=== PATIENT | female | born 1965 | race Caucasian/White ===

== ENCOUNTER 2020-07-22 06:33 | Outpatient (REF) | payer OTHER, SELFPAY ==
[2020-07-22 11:44] LABS: Hematocrit 39.8 % (37-47); Hemoglobin 13.3 g/dl (12.0-16.0); Mean Corpuscular HGB Conc 33.4 g/dl (31.0-35.0); Mean Corpuscular Hemoglobin 28.7 pg (27.0-33.0); Mean Corpuscular Volume 85.8 fL (80-98); Mean Platelet Volume 10.3 fL (9.4-12.3); Platelet Count 202 X10*3/uL (160-400); Red Blood Count 4.64 X10*6/uL (4.20-5.50); Red Cell Distribution Width 11.6 % (11.0-16.0); White Blood Count 4.1 X10*3/uL (4.8-10.8)
[2020-07-22 11:57] LABS: Alanine Aminotransferase 16 U/L (0-31); Albumin Level 4.5 g/dL (3.5-5.0); Alkaline Phosphatase 59 U/L (39-117); Anion Gap 12 (12-20); Aspartate Amino Transferase 17 U/L (5-31); Blood Urea Nitrogen 14 mg/dL (9-16); Calcium 9.5 mg/dL (8.4-10.2); Carbon Dioxide 27 mmol/L (22-29); Chloride 107 mmol/L (96-108); Cholesterol 216 mg/dL; Estimated Glomerular Filt Rate > 60; Glucose Fasting 102 mg/dL (60-99); HDL Cholesterol 70 mg/dL; LDL Cholesterol Calculated 136 mg/dl; Potassium 3.9 mmol/L (3.3-5.1); Sodium 142 mmol/L (135-145); Total Protein 6.7 g/dL (6.5-8.0); Triglycerides 52 mg/dL
[2020-07-22 12:20] LABS: TSH reflex Free T4 0.59 uIU/mL (0.32-4.0); Vitamin D 25-OH Total 40.1 ng/mL (>30)
== END 2020-07-22 06:34 | disposition home or self-care (01) ==
LOC: HO.HMGCLDS 06:33
PROVIDERS: PCP Internal Medicine; Visit Provider Internal Medicine
DX: Z00.00 Encounter for general adult medical examination without abnormal findings (principal)
CPT/HCPCS: 36415; 80053; 80061; 82306; 84443; 85027

== ENCOUNTER 2020-07-23 12:09 | Outpatient (REF) | payer OTHER, SELFPAY ==
--- NOTE | ~2020-07-23 | XR_ITS ---
EXAMINATION: XR CHEST CLINICAL INFORMATION: Cough COMPARISON: None TECHNIQUE: 2 views of the chest were obtained. FINDINGS: No significant abnormality is noted involving the heart, lungs, mediastinum, bony thorax or soft tissues. XR/XR chest 2V IMPRESSION: Unremarkable examination.
== END 2020-07-23 12:10 | disposition home or self-care (01) ==
LOC: HO.HMGCX 12:09
PROVIDERS: PCP Internal Medicine; Visit Provider Internal Medicine
DX: R05 Cough (principal)
CPT/HCPCS: 71046

== ENCOUNTER 2020-08-13 12:36 | Outpatient (REF) | payer OTHER, SELFPAY ==
[2020-08-19 02:57] LABS: HPV mRNA E6/E7 rflx Not Detected (Not Detected)
== END 2020-08-13 12:37 | disposition home or self-care (01) ==
LOC: HO.LAB 12:36
PROVIDERS: Visit Provider Internal Medicine
DX: Z12.4 Encounter for screening for malignant neoplasm of cervix (principal); Z11.51 Encounter for screening for human papillomavirus (HPV)
CPT/HCPCS: 87624; 88142

== ENCOUNTER 2020-08-14 07:58 | Outpatient (REF) | payer OTHER, SELFPAY ==
[2020-08-16 21:12] LABS: Lyme Abs Screen <0.90 index
== END 2020-08-14 07:59 | disposition home or self-care (01) ==
LOC: HO.HMGCLDS 07:58
PROVIDERS: PCP Internal Medicine; Visit Provider Internal Medicine
DX: T14.8XXA Other injury of unspecified body region, initial encounter (principal); W57.XXXA Bitten or stung by nonvenomous insect and other nonvenomous arthropods, initial encounter
CPT/HCPCS: 36415; 86617; 86618

== ENCOUNTER 2021-02-18 11:26 | Outpatient (REF) | payer OTHER, SELFPAY ==
--- NOTE | ~2021-02-18 | US_ITS ---
EXAMINATION: US PELVIS LIMITED (BLADDER) CLINICAL INFORMATION: Frequency of micturition. COMPARISON: None. TECHNIQUE: Real-time imaging of the bladder. FINDINGS: BLADDER: Well distended and normal. Left ureteral jet is demonstrated; right is not. Prevoid bladder volume is 799 mL. Postvoid bladder volume is 363 mL. US/US bladder IMPRESSION: Very distended bladder with large 363 mL postvoid residual.
== END 2021-02-18 11:27 | disposition home or self-care (01) ==
LOC: HO.HMGCX 11:26
PROVIDERS: PCP Internal Medicine; Visit Provider Internal Medicine
DX: R35.0 Frequency of micturition (principal)
CPT/HCPCS: 76857

== ENCOUNTER 2021-03-22 12:27 | Outpatient (REF) | payer OTHER, SELFPAY ==
--- NOTE | ~2021-03-22 | US_ITS ---
EXAMINATION: US PELVIS CLINICAL INFORMATION: Retention of urine. COMPARISON: Previous bladder ultrasound February 2021. TECHNIQUE: Ultrasound of the pelvis is performed using both transabdominal and transvaginal transducers along with Doppler. Transvaginal imaging is performed due to inadequate visualization transabdominally. FINDINGS: The uterus is anteverted and measures 6.7 x 2.9 x 3.9 cm in dimension. There are multiple focal uterine lesion suggestive of fibroids. There is a 0.9 x 0.6 x 0.9 cm subserosal posterior uterine body fibroid. There is a 0.7 x 0.5 x 0.5 cm left upper uterine body or fundal fibroid that abuts the endometrium questionable for a submucosal fibroid. There is a 1.8 x 2 x 1.4 cm fundal fibroid. There is a 2.2 x 2.1 x 2 cm right upper uterine body fibroid that abuts the endometrium. There is a 1.2 x 0.9 x 1 cm right uterine body fibroid. There is a 1 x 1.1 x 0.9 cm right uterine body fibroid that may abut the endometrium. Endometrium is difficult to visualize. The endometrium is upper normal in thickness for postmenopausal patient measuring 0.7 cm. There are echogenic foci in the cervix questionable for calcifications. There are nabothian cysts in the cervix. The ovaries are not seen. There is no fluid in the pelvis. US/US pelvic and transvaginal IMPRESSION: Fibroid uterus. Upper normal thickness endometrium for a postmenopausal patient measuring 0.7 cm. Ovaries not seen.
--- NOTE | ~2021-03-22 | US_ITS ---
EXAMINATION: US RETROPERITONEAL LIMITED (RENAL ONLY) CLINICAL INFORMATION: Retention of urine, unspecified. COMPARISON: None TECHNIQUE: Real-time imaging of the kidneys. FINDINGS: RIGHT KIDNEY: 11.8 x 5.6 x 5.5 cm (SAG x AP x TRV). The kidney is normal in size, contour, and echogenicity. Renal cortical thickness is normal. No calculi or focal parenchymal lesions. No hydronephrosis. LEFT KIDNEY: 11.1 x 4.7 x 5.0 cm (SAG x AP x TRV). The kidney is normal in size, contour, and echogenicity. Renal cortical thickness is normal. No renal calculi or focal parenchymal lesions. There are bilateral ureteral jets seen in the bladder. US/US renal BI IMPRESSION: Mild left hydronephrosis. No echogenic renal calculi seen. Normal bilateral ureteral jets visualized.
== END 2021-03-22 12:28 | disposition home or self-care (01) ==
LOC: HO.US 12:27
PROVIDERS: PCP Internal Medicine; Visit Provider Internal Medicine
DX: R33.9 Retention of urine, unspecified (principal)
CPT/HCPCS: 76775; 76830; 76856

== ENCOUNTER 2021-03-28 11:00 | Outpatient (RCR) | payer OTHER, SELFPAY | END 2021-09-01 09:37 | disposition home or self-care (01) | LOC: HO.PTCHIC 11:00 | PROVIDERS: PCP Internal Medicine; Visit Provider Internal Medicine Rheumatology | DX: M89.49 Other hypertrophic osteoarthropathy, multiple sites (principal); M54.50 Low back pain, unspecified; G89.29 Other chronic pain | CPT/HCPCS: 97012; 97110; 97161 ==

== ENCOUNTER 2022-09-07 08:52 | Outpatient (REF) | payer OTHER, SELFPAY ==
[2022-09-07 11:16] LABS: MANUAL DIFF FLAG NO
[2022-09-07 11:32] LABS: Eosinophils Absolute Auto 0.1 X10*3/uL (0.0-0.4); Eosinophils Percent Auto 2.2 % (0-4); Hematocrit 39.6 % (37.0-47.0); Hemoglobin 13.3 g/dl (12.0-16.0); Lymphocytes Absolute Auto 1.2 X10*3/uL (1.2-4.9); Mean Corpuscular HGB Conc 33.6 g/dl (31.0-35.0); Mean Corpuscular Hemoglobin 28.7 pg (27.0-33.0); Mean Corpuscular Volume 85.5 fL (80.0-98.0); Mean Platelet Volume 10.1 fL (9.4-12.3); Monocytes Absolute Auto 0.4 X10*3/uL (0.1-1.2); Monocytes Percent Auto 9.1 % (2-11); Neutrophils Absolute Auto 2.4 x10*3/uL (2.0-8.3); Neutrophils Percent Auto 57.7 % (45-73); Platelet Count 191 X10*3/uL (160-400); Red Blood Count 4.63 X10*6/uL (4.20-5.50); Red Cell Distribution Width 12.1 % (11.0-16.0); White Blood Count 4.1 X10*3/uL (4.8-10.8)
[2022-09-07 11:56] LABS: Alanine Aminotransferase 20 U/L (0-31); Albumin Level 4.7 g/dL (3.5-5.0); Alkaline Phosphatase 54 U/L (39-117); Anion Gap 11 (12-20); Aspartate Amino Transferase 19 U/L (5-31); Bilirubin Total 1.2 mg/dL (0.0-1.0); Blood Urea Nitrogen 14 mg/dL (9-16); Calcium 9.1 mg/dL (8.4-10.2); Carbon Dioxide 27 mmol/L (22-29); Chloride 107 mmol/L (96-108); Cholesterol 230 mg/dL; Estimated Glomerular Filt Rate > 60; Glucose Fasting 103 mg/dL (60-99); HDL Cholesterol 71 mg/dL; LDL Cholesterol Calculated 147 mg/dl; Potassium 4.1 mmol/L (3.3-5.1); Sodium 141 mmol/L (135-145); Triglycerides 63 mg/dL
[2022-09-07 12:19] LABS: TSH reflex Free T4 0.34 uIU/mL (0.32-4.0); Vitamin D 25-OH Total 62.1 ng/mL (>30)
== END 2022-09-07 08:53 | disposition home or self-care (01) ==
LOC: HO.HMGCLDS 08:52
PROVIDERS: PCP Internal Medicine; Visit Provider Internal Medicine
DX: Z00.00 Encounter for general adult medical examination without abnormal findings (principal); M13.80 Other specified arthritis, unspecified site
CPT/HCPCS: 36415; 80053; 80061; 82306; 84443; 85025

== ENCOUNTER 2022-12-01 07:36 | Outpatient (REF) | payer OTHER, SELFPAY ==
[2022-12-04 16:08] LABS: TS Negative Control Passed; TS Panel A 1; TS Panel B 5; TS Positive Control Passed; TSpotTB Borderline (Negative)
== END 2022-12-01 07:37 | disposition home or self-care (01) ==
LOC: HO.HMGCLDS 07:36
PROVIDERS: PCP Internal Medicine; Visit Provider Internal Medicine
DX: Z11.1 Encounter for screening for respiratory tuberculosis (principal)
CPT/HCPCS: 36415; 86481

== ENCOUNTER 2023-05-04 09:26 | Outpatient (AMB) | payer OTHER, SELFPAY ==
[2023-05-04 09:30] VITALS: BP 124/70; PULSE 78; O2SAT 98; BMI 26.0
--- NOTE | 2023-05-04 09:30 | MHC.PC.OV ---
Vital Signs 05/04/23 09:30 Height 5 ft 3 in Weight 147 lb BMI 26.0 BP 124/70 Blood Pressure Location Lt brachial Position Sitting Pulse 78 Pulse Source Pulse Oximeter Pulse Oximetry (%) 98 Oxygen Delivery Method Room Air Intake Visit Reasons: Follow up Intake Note: Pt is here today for a follow up visit. Allergies ciprofloxacin Allergy (Unknown, Verified 05/04/23 09:32) Swelling lactate Allergy (Unknown, Uncoded 05/04/23 09:32) Unknown Medication List - Last Reconciled 05/04/23 by So Ellison MD calcium carbonate-vitamin D3 600 mg-10 mcg (400 unit) caps PO fexofenadine-pseudoephedrine 180-240 mg ER (Jessi-D 24 Hour) 1 tab PO QAM fluticasone propionate 50 mcg/actuation 2 sprays intranasal DAILY hydroxychloroquine 200 mg PO BID ketoconazole 2% topical lidocaine 5% 1 patch topical DAILY meloxicam 15 mg PO DAILY triamcinolone acetonide 0.025% 1 appl topical BID Tobacco use date assessed: 05/04/23 Dental Screening Dental Screen Date: 05/04/23 Did you have a dental visit in the last 12 months?: Yes Did you have a dental problem in the last 6 months where you did not have access to dental care?: No Was dental information given to patient?: Patient has dentist HPI Follow up HPI Details Pt patient complains of persistent right nostril blockage on and off worse in the winter despite taking antihistamine and using Flonase once in awhile. Patient denies nasal discharge but reports intermittent sneezing. Patient follows up with rheumatology for RA and will be starting methotrexate instead of Plaquenil. FORMERLY [facility] Medical History Abnormal mammogram of left breast Annual physical exam Annual physical exam Bowel obstruction Cough Eczema Normal colonoscopy Normal Pap smear Osteoarthritis Seronegative arthritis Tick bite Urinary frequency Urinary retention with incomplete bladder emptying Surgical History History of appendectomy Family History Father Prostate cancer Mother Glaucoma Social History Housing: House Alcohol intake: never Patient Tobacco Use Status: Never used Tobacco e-Cigarette/Vaping Use: Never Used Current occupational status: employed Cognitive needs: No Hearing needs: No Vision needs: No Questionnaire Thrive Questionnaire Date Thrive assessed: 09/07/22 AUDIT C Alcohol Use Questionnaire (AUDIT-C) 1. How often do you have a drink containing alcohol?: Never 3. How often do you have six or more drinks on one occasion?: Never Total Score: 0 JOSE-7 AMB Questionnaire JOSE-7 Date JOSE - 7 assessed: 09/07/22 Source: Developed by Drs. Bradly Oswald, Mera Nieves, William Ruelas and colleagues, with an educational maite from [employer]. Review of Systems Const All systems reviewed & are unremarkable except as noted in HPI and below Reports no additional complaints Eyes Reports no additional complaints ENT Reports no additional complaints Card Reports no additional complaints Resp Reports no additional complaints GI Reports no additional complaints Reports no additional complaints Physical exam (Primary Care) Vital Signs: Last Vital Signs Pulse 78 05/04/23 09:30 BP 124/70 05/04/23 09:30 Pulse Ox 98 05/04/23 09:30 Oxygen Delivery Method Room Air 05/04/23 09:30 BMI result Body Mass Index 26.0 Tobacco/Smoking Status: Tobacco use Status Tobacco use date assessed 05/04/23 05/04/23 09:37 Patient Tobacco Use Status Never used Tobacco 05/04/23 09:37 e-Cigarette/Vaping Use Never Used 05/04/23 09:37 Thrive Assessment: Date of Thrive Assessment Date Thrive assessed 09/07/22 05/04/23 09:37 Const General: no acute distress HENMT Head: Yes normal to inspection Ears: hearing grossly normal bilaterally and TM's normal bilaterally General nose exam: Normal external nose present, Abnormal mucous membranes and turbinates present erythematous and Nasal discharge present mucoid Face and sinus: Yes normal facial exam and No sinus tenderness Mouth: Normal oral and palatal mucosa present Eyes General: appearance normal, both eyes and all related structures Neck Neck: Yes no lymphadenopathy and Yes supple Resp Effort & Inspection: normal respiratory effort Auscultation: clear to auscultation bilaterally Cardio Rhythm: regular rhythm Heart sounds: S1 normal heart sound present and S2 normal heart sound present Assessment and Plan Assessment & Plan (1) Nasal congestion: Code(s): R09.81 - Nasal congestion Plan: For chronic nasal congestion patient was advised to use Flonase nasal spray more regularly and will be referred to ENT (2) Allergic rhinitis: Code(s): J30.9 - Allergic rhinitis, unspecified Plan: Continue antihistamine (3) Seronegative arthritis: Comment: on Plaquenil , F/U Dr. uL Code(s): M13.80 - Other specified arthritis, unspecified site Plan: Follow-up with rheumatology Orders: Referrals Ear/Nose/Throat Referral J30.9 - Allergic rhinitis, unspecified, R09.81 - Nasal congestion Coding Level of Care Code Est Pt Level 3 (31307) Diagnoses Nasal congestion R09.81 Allergic rhinitis J30.9 Seronegative arthritis M13.80
== END 2023-05-04 10:17 | disposition home or self-care (01) ==
PROVIDERS: PCP Internal Medicine; Visit Provider Internal Medicine
DX: R09.81 Nasal congestion (principal); J30.9 Allergic rhinitis, unspecified; M13.80 Other specified arthritis, unspecified site; Z23 Encounter for immunization
CPT/HCPCS: 90471; 90472; 90677; 90715; 99213

== ENCOUNTER 2023-07-05 08:55 | Outpatient (AMB) | payer OTHER, SELFPAY ==
--- NOTE | 2023-07-05 09:00 | MHC.PC.OV ---
Vital Signs 07/05/23 09:01 Height 5 ft 3 in Weight 147 lb BMI 26.0 BP 124/74 Blood Pressure Location Lt brachial Position Sitting Pulse 87 Pulse Source Pulse Oximeter Pulse Oximetry (%) 97 Oxygen Delivery Method Room Air Intake Visit Reasons: R ear pain and pain on the R side of her head. Intake Note: Pt is here today for a sick visit. Pt c/o R ear pain and R side of her head. Pt also states that she has been having pain in her L breast. Allergies ciprofloxacin Allergy (Unknown, Verified 07/05/23 09:05) Swelling lactate Allergy (Unknown, Uncoded 07/05/23 09:05) Unknown Medication List - Last Reconciled 07/05/23 by So Ellison MD calcium carbonate-vitamin D3 600 mg-10 mcg (400 unit) caps PO fexofenadine-pseudoephedrine 180-240 mg ER (Jessi-D 24 Hour) 1 tab PO QAM fluticasone propionate 50 mcg/actuation 2 sprays intranasal DAILY hydroxychloroquine 200 mg PO BID ketoconazole 2% topical lidocaine 5% 1 patch topical DAILY meloxicam 15 mg PO DAILY triamcinolone acetonide 0.025% 1 appl topical BID Tobacco use date assessed: 05/04/23 Dental Screening Dental Screen Date: 05/04/23 HPI R ear pain and pain on the R side of her head. HPI Details Patient presents complaining of persistent right-sided nasal congestion and R facial pressure, right ear discomfort on and off and sore throat getting worse for the last 2 months. Patient denies fever chills or nasal discharge. She was treated for COVID 3 weeks ago with Paxlovid. Patient reports chronic heartburn but denies any dysphagia odynophagia abdominal pain nausea or vomiting. Patient's brother was diagnosed with throat cancer and patient is concerned about it. She has been taking Jessi D on and off with some relief and has been using fluticasone nasal spray regularly. Patient has an appointment with ENT in 3 weeks [facility] Medical History Abnormal mammogram of left breast Urinary retention with incomplete bladder emptying Annual physical exam Urinary frequency Eczema Tick bite Annual physical exam Normal colonoscopy Normal Pap smear Cough Seronegative arthritis Osteoarthritis Bowel obstruction Surgical History History of appendectomy Family History Father Prostate cancer Mother Glaucoma Social History Housing: House Alcohol intake: never Patient Tobacco Use Status: Never used Tobacco e-Cigarette/Vaping Use: Never Used service: No Current occupational status: employed Cognitive needs: No Hearing needs: No Vision needs: No Questionnaire PHQ-9 Over the last 2 weeks, how often have you been bothered by any of the following problems? 1. Little interest or pleasure in doing things: not at all 2. Feeling down, depressed, or hopeless: not at all 3. Trouble falling or staying asleep, or sleeping too much: not at all 4. Feeling tired or having little energy: several days 5. Poor appetite or overeating: several days 6. Feeling bad about yourself - or that you are a failure or have let yourself or your family down: not at all 7. Trouble concentrating on things, such as reading the newspaper or watching television: not at all 8. Moving or speaking so slowly that other people could have noticed. Or the opposite - being so fidgety or restless that you have been moving around a lot more than usual: not at all 9. Thoughts that you would be better off or of hurting yourself in some way: not at all Total score: 2 Depression Screening Interpretation: Negative Depression Screening Done: Yes Source: Developed by Drs. Bradly Oswald, Mera Nieves, William Ruelas and colleagues, with an educational maite from [employer]. Thrive Questionnaire Date Thrive assessed: 07/05/23 I am a: Patient What is your living situation today?: I have a steady place to live Within the past 12 months, did the food you bought not last and you didn't have the money to get more?: Never true Within the past 12 months, did you worry whether your food would run out before you got money to buy more?: Never true Do you have trouble paying for medicines?: No Do you have trouble getting transportation to medical appointments?: No Do you have trouble paying your heating and electricity bill?: No Do you have trouble taking care of your child, family member or friend?: No Do you have trouble with day-to-day activities such as bathing, preparing meals, shopping, managing finances, etc.?: No Are you currently unemployed and looking for a job?: No Are you interested in more education?: No Please select the resources that you would like help with: None Currently or been in a relationship where the following occur: no concerns reported THRIVE Score: 0 JOSE-7 AMB Questionnaire JOSE-7 Date JOSE - 7 assessed: 09/07/22 Feeling nervous, anxious, or on edge: 1 = Several days Not being able to stop or control worryin = Several days Worrying too much about different things: 1 = Several days Trouble relaxin = Not at all Being so restless that it is hard to sit still: 0 = Not at all Becoming easily annoyed or irritable: 0 = Not at all Feeling afraid as if something awful might happen: 0 = Not at all Total JOSE-7 score (0-4 normal; 5-9 mild; 10-14 moderate; 15-21 severe): 3 Source: Developed by Drs. Bradly Oswald, Mera Nieves, William Ruelas and colleagues, with an educational maite from [employer]. Review of Systems Const All systems reviewed & are unremarkable except as noted in HPI and below Eyes Reports no additional complaints ENT Reports no additional complaints Card Reports no additional complaints Resp Reports no additional complaints GI Reports no additional complaints Physical exam (Primary Care) Vital Signs: Last Vital Signs Pulse 87 07/05/23 09:01 BP 124/74 07/05/23 09:01 Pulse Ox 97 07/05/23 09:01 Oxygen Delivery Method Room Air 07/05/23 09:01 BMI result Body Mass Index 26.0 Tobacco/Smoking Status: Tobacco use Status Tobacco use date assessed 05/04/23 07/05/23 09:00 Patient Tobacco Use Status Never used Tobacco 07/05/23 09:00 e-Cigarette/Vaping Use Never Used 07/05/23 09:00 PHQ-9: PHQ-9 Score PHQ-9: Total score 2 07/05/23 09:13 Depression Screening Interpretation: Negative Thrive Assessment: Date of Thrive Assessment Date Thrive assessed 07/05/23 07/05/23 09:13 Currently or been in a relationship where the following occur: no concerns reported Const General: no acute distress HENMT Head: Yes normal to inspection Ears: TM's normal bilaterally General nose exam: Abnormal mucous membranes and turbinates present erythematous Face and sinus: No sinus tenderness Throat: Yes postnasal drainage Eyes General: appearance normal, both eyes and all related structures Neck Other: Reproducible tenderness over right sternocleidomastoid muscle and right TMJ Neck: Yes no lymphadenopathy and Yes supple Resp Effort & Inspection: normal respiratory effort Auscultation: clear to auscultation bilaterally Cardio Rhythm: regular rhythm Heart sounds: S1 normal heart sound present and S2 normal heart sound present GI Inspection: Yes normal to inspection Assessment and Plan Assessment & Plan (1) Nasal congestion: Code(s): R09.81 - Nasal congestion Plan: Patient was advised to continue Jessi D and Flonase nasal spray (2) GERD (gastroesophageal reflux disease): Code(s): K21.9 - Gastro-esophageal reflux disease without esophagitis Plan: She was advised to try Pepcid q.h.s. and follow anti GERD diet (3) Chronic sinusitis: Code(s): J32.9 - Chronic sinusitis, unspecified Plan: Obtain CT of the sinuses to evaluate for chronic sinusitis. Follow-up with ENT in 3 weeks Orders: Orders CT sinus wo IV con Today J32.9 - Chronic sinusitis, unspecified, R09.81 - Nasal congestion Coding Level of Care Code Est Pt Level 3 (00932) Diagnoses Nasal congestion R09.81 GERD (gastroesophageal reflux disease) K21.9 Chronic sinusitis J32.9
[2023-07-05 09:01] VITALS: BP 124/74; PULSE 87; O2SAT 97; BMI 26.0
== END 2023-07-05 10:13 | disposition home or self-care (01) ==
PROVIDERS: PCP Internal Medicine; Visit Provider Internal Medicine
DX: R09.81 Nasal congestion (principal); K21.9 Gastro-esophageal reflux disease without esophagitis; J32.9 Chronic sinusitis, unspecified
CPT/HCPCS: 99213

== ENCOUNTER 2023-07-31 07:34 | Outpatient (REF) | payer OTHER, SELFPAY ==
--- NOTE | ~2023-07-31 | CT_ITS ---
EXAMINATION: CT SINUS WITHOUT CONTRAST CLINICAL INFORMATION: Chronic sinusitis COMPARISON: None TECHNIQUE: Multidetector helical imaging was performed in the axial plane using landmarks protocol with generation of coronal and sagittal reformatted images. This CT examination was performed using dose optimization techniques as appropriate, variously including the following: *Automated exposure control *Adjustment of mA and/or kV according to patient size (this includes techniques or standardized protocols for targeted exams where dose is matched to indication/reason for exam; i.e. extremities or head) *Use of iterative reconstruction technique DLP: 80.3 mGy-cm FINDINGS: FRONTAL SINUSES AND DRAINAGE PATHWAYS: The frontal sinuses are clear. The frontal recesses are patent. MAXILLARY SINUSES AND DRAINAGE PATHWAYS: The maxillary sinuses are clear. The maxillary ostia and infundibula are patent. ETHMOID SINUSES: The ethmoid air cells are clear. The ethmoid roofs appear intact and are symmetric. SPHENOID SINUS AND DRAINAGE PATHWAYS: The sphenoid sinus is clear.. The sphenoid ostia and sphenoethmoidal recesses are patent. NASAL PASSAGE: The nasal passages are clear. The osseous nasal septum is deviated to the right. ADDITIONAL RELEVANT FINDINGS: The lamina papyracea are intact. No demonstrated abnormalities of the orbits. The carotid canals are normally covered by bone. No significant maxillary periapical disease. The temporomandibular joints are normal. The mastoid air cells and middle ear cavities are well aerated. Limited evaluation of the intracranial structures without significant abnormalities. CT/CT sinus wo IV con IMPRESSION: 1. No active sinus disease. 2. Rightward deviation of the nasal septum.
== END 2023-07-31 07:35 | disposition home or self-care (01) ==
LOC: HO.CT 07:34
PROVIDERS: PCP Internal Medicine; Visit Provider Internal Medicine
DX: D10.7 Benign neoplasm of hypopharynx (principal); R13.10 Dysphagia, unspecified; R09.81 Nasal congestion
CPT/HCPCS: 70486

== ENCOUNTER 2023-09-04 07:31 | Outpatient (REF) | payer OTHER, SELFPAY ==
[2023-09-04 10:15] LABS: MANUAL DIFF FLAG NO
[2023-09-04 10:27] LABS: Basophils Percent Auto 0.9 % (0-2); Eosinophils Absolute Auto 0.1 X10*3/uL (0.0-0.4); Eosinophils Percent Auto 2.8 % (0-4); Hematocrit 39.4 % (37.0-47.0); Hemoglobin 13.4 g/dl (12.0-16.0); Imm Gran Abs Auto 0.01 X10*3/uL (0.00-0.03); Imm Gran Pct Auto 0.2 % (0.0-0.4); Lymphocytes Absolute Auto 1.2 X10*3/uL (1.2-4.9); Lymphocytes Percent Auto 26.4 % (20-40); Mean Corpuscular Hemoglobin 29.1 pg (27.0-33.0); Mean Corpuscular Volume 85.5 fL (80.0-98.0); Mean Platelet Volume 9.9 fL (9.4-12.3); Monocytes Absolute Auto 0.5 X10*3/uL (0.1-1.2); Monocytes Percent Auto 10.3 % (2-11); Neutrophils Absolute Auto 2.8 x10*3/uL (2.0-8.3); Neutrophils Percent Auto 59.4 % (45-73); Platelet Count 219 X10*3/uL (160-400); Red Blood Count 4.61 X10*6/uL (4.20-5.50); Red Cell Distribution Width 12.1 % (11.0-16.0); White Blood Count 4.7 X10*3/uL (4.8-10.8)
[2023-09-04 11:16] LABS: Alanine Aminotransferase 17 U/L (0-31); Albumin Level 4.3 g/dL (3.5-5.0); Alkaline Phosphatase 49 U/L (39-117); Anion Gap 12 (12-20); Aspartate Amino Transferase 18 U/L (5-31); Bilirubin Total 0.9 mg/dL (0.0-1.0); Blood Urea Nitrogen 17 mg/dL (9-16); Calcium 9.2 mg/dL (8.4-10.2); Carbon Dioxide 28 mmol/L (22-29); Chloride 105 mmol/L (96-108); Cholesterol 204 mg/dL (<200); Estimated Glomerular Filt Rate > 60; Glucose Fasting 90 mg/dL (60-99); HDL Cholesterol 70 mg/dL (>40); LDL Cholesterol Calculated 124 mg/dL (<100); Potassium 4.1 mmol/L (3.3-5.1); Sodium 141 mmol/L (135-145); TSH reflex Free T4 0.43 uIU/mL (0.32-4.0); Total Protein 6.7 g/dL (6.5-8.0); Triglycerides 53 mg/dL (<150)
[2023-09-04 12:28] LABS: Folate 13.3 ng/mL (> or = 4.0); Vitamin B12 728 pg/mL (200-900)
== END 2023-09-04 07:32 | disposition home or self-care (01) ==
LOC: HO.HMGCLDS 07:31
PROVIDERS: PCP Internal Medicine; Visit Provider Internal Medicine
DX: Z00.00 Encounter for general adult medical examination without abnormal findings (principal); E78.5 Hyperlipidemia, unspecified; E53.8 Deficiency of other specified B group vitamins
CPT/HCPCS: 36415; 80053; 80061; 82607; 82746; 84443; 85025

== ENCOUNTER 2023-09-07 07:21 | Outpatient (REF) | payer OTHER, SELFPAY ==
[2023-09-07 08:28] LABS: Blood Urea Nitrogen 20 mg/dL (9-16); Estimated Glomerular Filt Rate > 60
== END 2023-09-07 07:22 | disposition home or self-care (01) ==
LOC: HO.LAB 07:21
PROVIDERS: PCP Internal Medicine; Visit Provider Otolaryngology
DX: Z01.812 Encounter for preprocedural laboratory examination (principal); R13.10 Dysphagia, unspecified
CPT/HCPCS: 36415; 82565; 84520

== ENCOUNTER 2023-09-14 09:01 | Outpatient (REF) | payer OTHER, SELFPAY ==
--- NOTE | ~2023-09-14 | CT_ITS ---
EXAMINATION: CT SOFT TISSUE NECK WITH CONTRAST CLINICAL INFORMATION: Right hypopharyngeal lesion COMPARISON: None available. TECHNIQUE: Following the intravenous administration of 60 mL of Omnipaque 350 intravenous contrast, helical imaging was performed in the axial plane with generation of coronal and sagittal reformatted images. This CT examination was performed using dose optimization techniques as appropriate, variously including the following: *Automated exposure control *Adjustment of mA and/or kV according to patient size (this includes techniques or standardized protocols for targeted exams where dose is matched to indication/reason for exam; i.e. extremities or head) *Use of iterative reconstruction technique DLP: 312 mGy-cm FINDINGS: PHARYNX: The right palatine tonsil appears asymmetrically larger with poorly demarcated mildly hyperenhancing lesion measuring 3.0 cm in AP diameter, 2.0 cm in width, containing multiple dystrophic calcifications. The visualized nasopharynx, hypopharynx are normal with no focal mass lesion. PHARYNGEAL STRUCTURES: Bilateral valleculae, epiglottis, piriform sinuses, vocal cords and arytenoids are normal. There is circumferential mural thickening of the cervical esophagus from C6-C7 junction down to T2/T3 junction level. SALIVARY GLANDS: Bilateral parotid and submandibular salivary glands are symmetrical without focal lesion. LYMPH NODES: Left level 1B cervical lymph node measures 0.4 cm in short axis, series 2 image #55. No abnormally enlarged cervical or superior mediastinal lymph nodes are seen. THYROID: No focal thyroid mass lesion is found. BONES: No fracture or dislocation. No focal bone lesion diagnostic of metastatic disease could be seen in the cervical spine and visualized skull base. LUNG APICES: The visualized lung apices are clear. CT/CT soft tissue neck w IV con IMPRESSION: 1. Asymmetrically larger right palatine tonsil with poorly demarcated mildly hyperenhancing lesion measuring 3.0 cm in AP diameter, 2.0 cm in width, containing multiple dystrophic calcifications. 2. No abnormally enlarged cervical or superior mediastinal lymph nodes are seen. 3. Circumferential mural thickening of the cervical esophagus from C6-C7 junction down to T2/T3 junction level.
[2023-09-14] MEDS: iohexoL 350 MG/ML 100 ML INFUS..BTL 60 ML IV (09:48)
== END 2023-09-14 09:02 | disposition home or self-care (01) ==
LOC: HO.CT 09:01
PROVIDERS: PCP Internal Medicine; Visit Provider Otolaryngology
DX: R13.10 Dysphagia, unspecified (principal); D10.7 Benign neoplasm of hypopharynx
CPT/HCPCS: 70491; Q9967

== ENCOUNTER 2023-10-12 10:42 | Outpatient (AMB) | payer OTHER, SELFPAY ==
[2023-10-12 10:50] VITALS: BP 118/72; PULSE 87; O2SAT 97; BMI 25.9
--- NOTE | 2023-10-12 10:50 | MHC.PC.OV ---
Vital Signs 10/12/23 10:50 Height 5 ft 3 in Weight 146 lb BMI 25.9 BP 118/72 Blood Pressure Location Lt brachial Position Sitting Pulse 87 Pulse Source Pulse Oximeter Pulse Oximetry (%) 97 Oxygen Delivery Method Room Air Intake Visit Reasons: PE dena from 09/11/23 Intake Note: Pt is here today for a PE. Pt would like to get a refill on lidocaine patches and the shampoo. Allergies ciprofloxacin Allergy (Unknown, Verified 10/12/23 10:50) Swelling lactate Allergy (Unknown, Uncoded 10/12/23 10:50) Unknown Medication List - Last Reconciled 10/12/23 by So Ellison MD calcium carbonate-vitamin D3 600 mg-10 mcg (400 unit) caps PO fexofenadine-pseudoephedrine 180-240 mg ER (Jessi-D 24 Hour) 1 tab PO QAM fluticasone propionate 50 mcg/actuation 2 sprays intranasal DAILY folic acid 1 mg PO DAILY hydroxychloroquine 200 mg PO BID ketoconazole 2% topical lidocaine 5% 1 patch topical DAILY meloxicam 15 mg PO DAILY methotrexate sodium 10 mg PO QWEEK triamcinolone acetonide 0.025% 1 appl topical BID Tobacco use date assessed: 10/12/23 Dental Screening Dental Screen Date: 05/04/23 HPI PE dena from 09/11/23 HPI Details Patient presents for physical. She was evaluated by ENT for chronic sore throat and had a CT showing enlarged right tonsil with calcifications. Patient was referred to a different ENT and has an appointment next week. [facility] Medical History Abnormal mammogram of left breast Urinary retention with incomplete bladder emptying Annual physical exam Urinary frequency Eczema Tick bite Annual physical exam Normal colonoscopy Normal Pap smear Cough Seronegative arthritis Osteoarthritis Bowel obstruction Surgical History History of appendectomy Family History Father Prostate cancer Mother Glaucoma Social History Housing: House Alcohol intake: never Patient Tobacco Use Status: Never used Tobacco e-Cigarette/Vaping Use: Never Used service: No Current occupational status: employed Cognitive needs: No Hearing needs: No Vision needs: No Questionnaire PHQ-9 Over the last 2 weeks, how often have you been bothered by any of the following problems? 1. Little interest or pleasure in doing things: not at all 2. Feeling down, depressed, or hopeless: not at all 3. Trouble falling or staying asleep, or sleeping too much: not at all 4. Feeling tired or having little energy: not at all 5. Poor appetite or overeating: not at all 6. Feeling bad about yourself - or that you are a failure or have let yourself or your family down: not at all 7. Trouble concentrating on things, such as reading the newspaper or watching television: not at all 8. Moving or speaking so slowly that other people could have noticed. Or the opposite - being so fidgety or restless that you have been moving around a lot more than usual: not at all 9. Thoughts that you would be better off or of hurting yourself in some way: not at all Total score: 0 Depression Screening Interpretation: Negative Depression Screening Done: Yes Source: Developed by Drs. Bradly Oswald, Mera Nieves, William Ruelas and colleagues, with an educational maite from [employer]. Thrive Questionnaire Date Thrive assessed: 10/12/23 I am a: Patient What is your living situation today?: I have a steady place to live Within the past 12 months, did the food you bought not last and you didn't have the money to get more?: I choose not to answer this question Within the past 12 months, did you worry whether your food would run out before you got money to buy more?: I choose not to answer this question Do you have trouble paying for medicines?: No Do you have trouble getting transportation to medical appointments?: No Do you have trouble paying your heating and electricity bill?: No Do you have trouble taking care of your child, family member or friend?: No Do you have trouble with day-to-day activities such as bathing, preparing meals, shopping, managing finances, etc.?: No Are you currently unemployed and looking for a job?: No Are you interested in more education?: No Please select the resources that you would like help with: Housing/Group Home Currently or been in a relationship where the following occur: I choose not to answer THRIVE Score: 0 AUDIT C Alcohol Use Questionnaire (AUDIT-C) 1. How often do you have a drink containing alcohol?: Never 3. How often do you have six or more drinks on one occasion?: Never Total Score: 0 JOSE-7 AMB Questionnaire JOSE-7 Date JOSE - 7 assessed: 10/12/23 Feeling nervous, anxious, or on edge: 1 = Several days Not being able to stop or control worryin = Several days Worrying too much about different things: 0 = Not at all Trouble relaxin = Not at all Being so restless that it is hard to sit still: 0 = Not at all Becoming easily annoyed or irritable: 0 = Not at all Feeling afraid as if something awful might happen: 0 = Not at all Total JOSE-7 score (0-4 normal; 5-9 mild; 10-14 moderate; 15-21 severe): 2 Source: Developed by Drs. Bradly Oswald, Mera Nieves, William Ruelas and colleagues, with an educational maite from [employer]. Review of Systems Const All systems reviewed & are unremarkable except as noted in HPI and below Eyes Reports no additional complaints ENT Reports no additional complaints Card Reports no additional complaints Resp Reports no additional complaints GI Reports no additional complaints Reports no additional complaints Musc Reports no additional complaints Physical exam (Primary Care) Vital Signs: Last Vital Signs Pulse 87 10/12/23 10:50 BP 118/72 10/12/23 10:50 Pulse Ox 97 10/12/23 10:50 Oxygen Delivery Method Room Air 10/12/23 10:50 BMI result Body Mass Index 25.9 Tobacco/Smoking Status: Tobacco use Status Tobacco use date assessed 10/12/23 10/12/23 11:02 Patient Tobacco Use Status Never used Tobacco 10/12/23 11:02 e-Cigarette/Vaping Use Never Used 10/12/23 10:50 PHQ-9: PHQ-9 Score PHQ-9: Total score 0 10/12/23 11:12 Depression Screening Interpretation: Negative Thrive Assessment: Date of Thrive Assessment Date Thrive assessed 10/12/23 10/12/23 11:02 Currently or been in a relationship where the following occur: I choose not to answer Const General: no acute distress HENMT Head: Yes normal to inspection Ears: hearing grossly normal bilaterally Face and sinus: Yes normal facial exam Throat: Yes abnormal tonsil ( right tonsil larger than left ) and Yes postnasal drainage Eyes General: appearance normal, both eyes and all related structures Neck Neck: Yes no lymphadenopathy and Yes supple Resp Effort & Inspection: normal respiratory effort Auscultation: clear to auscultation bilaterally Cardio Rhythm: regular rhythm Heart sounds: S1 normal heart sound present and S2 normal heart sound present GI Inspection: Yes normal to inspection Palpation (GI): Soft to palpation Percussion: Yes normal to percussion Auscultation: normal bowel sounds Assessment and Plan Assessment & Plan (1) Dysplastic nevus: Comment: nose Code(s): D23.9 - Other benign neoplasm of skin, unspecified Plan: Patient is established with [place] [facility] (2) Seronegative arthritis: Comment: on Plaqueloreleil , F/U Dr. Lu Code(s): M13.80 - Other specified arthritis, unspecified site Plan: Follow-up with rheumatology (3) Enlargement of right palatine tonsil: Comment: CT 10/09 , will see ENT in [place] Code(s): J35.1 - Hypertrophy of tonsils Plan: Follow-up with ENT (4) Annual physical exam: Code(s): Z00.00 - Encounter for general adult medical examination without abnormal findings Plan: Well-balanced diet regular physical activity discussed with the patient. She is up-to-date with mammogram and colonoscopy (5) Normal colonoscopy: Comment: [facility] Orders: Referrals Dermatology Referral D23.9 - Other benign neoplasm of skin, unspecified Coding Level of Care Code Est Pt Prev Care 40-64y(57259) Diagnoses Dysplastic nevus D23.9 Seronegative arthritis M13.80 Enlargement of right palatine tonsil J35.1 Annual physical exam Z00.00 Normal colonoscopy
== END 2023-10-12 11:59 | disposition home or self-care (01) ==
PROVIDERS: PCP Internal Medicine; Visit Provider Internal Medicine
DX: D23.9 Other benign neoplasm of skin, unspecified (principal); M13.80 Other specified arthritis, unspecified site; J35.1 Hypertrophy of tonsils; Z00.00 Encounter for general adult medical examination without abnormal findings
CPT/HCPCS: 99396

== ENCOUNTER 2023-12-17 09:44 | Outpatient (AMB) | payer OTHER, SELFPAY ==
[2023-12-17 09:52] VITALS: BP 118/66; PULSE 86; O2SAT 97; BMI 26.0
--- NOTE | 2023-12-17 09:52 | MHC.PC.OV ---
Vital Signs 12/17/23 09:52 Height 5 ft 3 in Weight 147 lb BMI 26.0 BP 118/66 Blood Pressure Location Lt brachial Position Sitting Pulse 86 Pulse Source Pulse Oximeter Pulse Oximetry (%) 97 Oxygen Delivery Method Room Air Intake Visit Reasons: ER follow up Intake Note: Pt is here today for ER follow up visit. Pt states that she has been having L knee pain and swelling. Allergies ciprofloxacin Allergy (Unknown, Verified 12/17/23 09:55) Swelling lactate Allergy (Unknown, Uncoded 12/17/23 09:55) Unknown Medication List - Last Reconciled 12/17/23 by So Ellison MD calcium carbonate-vitamin D3 600 mg-10 mcg (400 unit) caps PO fexofenadine-pseudoephedrine 180-240 mg ER (Jessi-D 24 Hour) 1 tab PO QAM fluticasone propionate 50 mcg/actuation 2 sprays intranasal DAILY folic acid 1 mg PO DAILY hydroxychloroquine 200 mg PO BID ketoconazole 2% topical lidocaine 5% 1 patch topical DAILY meloxicam 15 mg PO DAILY methotrexate sodium 10 mg PO QWEEK triamcinolone acetonide 0.025% 1 appl topical BID Tobacco use date assessed: 12/17/23 Dental Screening Dental Screen Date: 05/04/23 HPI ER follow up HPI Details Pt presents for f/u ER knee pain and swelling. XR showed showed mild degenerative osteoarthritis and moderate suprapatellar joint effusion. Patient underwent arthrocentesis negative for inflammatory or gout arthritis. She has been taking meloxicam and feeling better. [facility] Medical History (Updated 12/17/23 @ 10:27 by So Ellison MD) Abnormal mammogram of left breast Urinary retention with incomplete bladder emptying Annual physical exam Urinary frequency Eczema Tick bite Annual physical exam Normal colonoscopy Normal Pap smear Cough Seronegative arthritis Osteoarthritis Bowel obstruction Surgical History History of appendectomy Family History (Updated 12/17/23 @ 09:59 by DEVONTE Lomas) Father Prostate cancer Mother Glaucoma Brother Tonsil cancer Social History Housing: House Alcohol intake: never Patient Tobacco Use Status: Never used Tobacco e-Cigarette/Vaping Use: Never Used service: No Current occupational status: employed Cognitive needs: No Hearing needs: No Vision needs: No Questionnaire Thrive Questionnaire Date Thrive assessed: 10/12/23 I am a: Patient What is your living situation today?: I have a steady place to live Within the past 12 months, did the food you bought not last and you didn't have the money to get more?: I choose not to answer this question Within the past 12 months, did you worry whether your food would run out before you got money to buy more?: I choose not to answer this question Do you have trouble paying for medicines?: No Do you have trouble getting transportation to medical appointments?: No Do you have trouble paying your heating and electricity bill?: No Do you have trouble taking care of your child, family member or friend?: No Do you have trouble with day-to-day activities such as bathing, preparing meals, shopping, managing finances, etc.?: No Are you currently unemployed and looking for a job?: No Are you interested in more education?: No Please select the resources that you would like help with: None Currently or been in a relationship where the following occur: I choose not to answer THRIVE Score: 0 JOSE-7 AMB Questionnaire JOSE-7 Date JOSE - 7 assessed: 10/12/23 Source: Developed by Drs. Bradly Oswald, Mera Nieves, William Ruelas and colleagues, with an educational maite from [employer]. Review of Systems Const All systems reviewed & are unremarkable except as noted in HPI and below Card Reports no additional complaints Resp Reports no additional complaints GI Reports no additional complaints Reports no additional complaints Physical exam (Primary Care) Vital Signs: Last Vital Signs Pulse 86 12/17/23 09:52 BP 118/66 12/17/23 09:52 Pulse Ox 97 12/17/23 09:52 Oxygen Delivery Method Room Air 12/17/23 09:52 BMI result Body Mass Index 26.0 Tobacco/Smoking Status: Tobacco use Status Tobacco use date assessed 12/17/23 12/17/23 10:00 Patient Tobacco Use Status Never used Tobacco 12/17/23 10:00 e-Cigarette/Vaping Use Never Used 12/17/23 09:57 Thrive Assessment: Date of Thrive Assessment Date Thrive assessed 10/12/23 12/17/23 09:57 Currently or been in a relationship where the following occur: I choose not to answer Const General: no acute distress Eyes General: appearance normal, both eyes and all related structures Neck Neck: Yes supple Resp Effort & Inspection: normal respiratory effort Auscultation: clear to auscultation bilaterally Cardio Rhythm: regular rhythm Heart sounds: S1 normal heart sound present and S2 normal heart sound present Extrem Other: Brandon a slight soft tissue swelling on lateral aspect of left knee, no erythema or warmth there is slightly decreased range of motion and crepitus Assessment and Plan Assessment & Plan (1) Left knee pain: Code(s): M25.562 - Pain in left knee Plan: Continue meloxicam and referred to physical therapy (2) Seronegative arthritis: Comment: on methotrexate, F/U Dr. Lu Code(s): M13.80 - Other specified arthritis, unspecified site Plan: Follow-up with rheumatology Orders: Orders PT Evaluation and Treatment Today M25.562 - Pain in left knee Coding Level of Care Code Est Pt Level 3 (12469) Diagnoses Left knee pain M25.562 Seronegative arthritis M13.80
== END 2023-12-17 10:27 | disposition home or self-care (01) ==
PROVIDERS: PCP Internal Medicine; Visit Provider Internal Medicine
DX: M25.562 Pain in left knee (principal); M13.80 Other specified arthritis, unspecified site

== ENCOUNTER → 2023-12-17 09:44 | Outpatient (BNVA) | payer OTHER, SELFPAY | PROVIDERS: PCP Internal Medicine; Visit Provider Internal Medicine ==

== ENCOUNTER 2024-01-28 09:41 | Outpatient (REF) | payer OTHER, SELFPAY ==
[2024-01-28 14:08] LABS: HPV 16,18/45 See PAP report
== END 2024-01-28 09:42 | disposition home or self-care (01) ==
LOC: HO.LNP 09:41
PROVIDERS: PCP Internal Medicine; Visit Provider Internal Medicine
DX: Z00.00 Encounter for general adult medical examination without abnormal findings (principal)
CPT/HCPCS: 87624; 88175

== ENCOUNTER 2024-01-28 09:41 | Outpatient (AMB) | payer OTHER, SELFPAY ==
--- NOTE | 2024-01-28 09:56 | MHC.PC.OV ---
Vital Signs 01/28/24 10:01 Height 5 ft 3 in Weight 145 lb BMI 25.7 BP 120/70 Blood Pressure Location Lt brachial Position Sitting Pulse 83 Pulse Source Pulse Oximeter Pulse Oximetry (%) 98 Oxygen Delivery Method Room Air Intake Visit Reasons: Follow up Allergies ciprofloxacin Allergy (Unknown, Verified 01/28/24 10:14) Swelling lactate Allergy (Unknown, Uncoded 01/28/24 10:14) Unknown Medication List - Last Reconciled 01/28/24 by So Ellison MD calcium carbonate-vitamin D3 600 mg-10 mcg (400 unit) caps PO fexofenadine-pseudoephedrine 180-240 mg ER (Jessi-D 24 Hour) 1 tab PO QAM fluticasone propionate 50 mcg/actuation 2 sprays intranasal DAILY folic acid 1 mg PO DAILY glucosamine-chondroitin 250-200 mg (Osteo Bi-Flex) 1 tab PO DAILY ketoconazole 2% topical lidocaine 5% 1 patch topical DAILY meloxicam 15 mg PO DAILY methotrexate sodium 10 mg PO QWEEK triamcinolone acetonide 0.025% 1 appl topical BID vitamin D3-vitamin K2 125 mcg (5,000 unit)-100 mcg caps PO Tobacco use date assessed: 01/28/24 Dental Screening Dental Screen Date: 05/04/23 HPI Follow up HPI Details Pt noticed a small amount of fresh blood on the tissue after BM last week. Pt denies abdominal pain change in bowel habits constipation rectal discomfort blood present in the stool. Patient also reports intermittent feeling of fullness in her vagina but denies vaginal bleeding or pelvic pain. [facility] Medical History Abnormal mammogram of left breast Urinary retention with incomplete bladder emptying Annual physical exam Urinary frequency Eczema Tick bite Annual physical exam Normal colonoscopy Normal Pap smear Cough Seronegative arthritis Osteoarthritis Bowel obstruction Surgical History History of appendectomy Family History Father Prostate cancer Mother Glaucoma Brother Tonsil cancer Social History Housing: House Alcohol intake: never Patient Tobacco Use Status: Never used Tobacco e-Cigarette/Vaping Use: Never Used service: No Current occupational status: employed Cognitive needs: No Hearing needs: No Vision needs: No Questionnaire Thrive Questionnaire Date Thrive assessed: 10/12/23 I am a: Patient What is your living situation today?: I have a steady place to live Within the past 12 months, did the food you bought not last and you didn't have the money to get more?: I choose not to answer this question Within the past 12 months, did you worry whether your food would run out before you got money to buy more?: I choose not to answer this question Do you have trouble paying for medicines?: No Do you have trouble getting transportation to medical appointments?: No Do you have trouble paying your heating and electricity bill?: No Do you have trouble taking care of your child, family member or friend?: No Do you have trouble with day-to-day activities such as bathing, preparing meals, shopping, managing finances, etc.?: No Are you currently unemployed and looking for a job?: No Are you interested in more education?: No Please select the resources that you would like help with: None Currently or been in a relationship where the following occur: I choose not to answer THRIVE Score: 0 JOSE-7 AMB Questionnaire JOSE-7 Date JOSE - 7 assessed: 10/12/23 Source: Developed by Drs. Bradly Oswald, Mera Nieves, William Ruelas and colleagues, with an educational maite from [employer] Orders. Review of Systems Const All systems reviewed & are unremarkable except as noted in HPI and below ENT Reports no additional complaints Card Reports no additional complaints Resp Reports no additional complaints GI Reports no additional complaints Reports no additional complaints Physical exam (Primary Care) Vital Signs: Last Vital Signs Pulse 83 01/28/24 10:01 BP 120/70 01/28/24 10:01 Pulse Ox 98 01/28/24 10:01 Oxygen Delivery Method Room Air 01/28/24 10:01 BMI result Body Mass Index 25.7 Tobacco/Smoking Status: Tobacco use Status Tobacco use date assessed 01/28/24 01/28/24 10:05 Patient Tobacco Use Status Never used Tobacco 01/28/24 09:56 e-Cigarette/Vaping Use Never Used 01/28/24 09:56 Thrive Assessment: Date of Thrive Assessment Date Thrive assessed 10/12/23 01/28/24 09:56 Currently or been in a relationship where the following occur: I choose not to answer HENMT Face and sinus: Yes normal facial exam Throat: Yes posterior oropharynx normal Resp Auscultation: clear to auscultation bilaterally Cardio Rhythm: regular rhythm Heart sounds: S1 normal heart sound present and S2 normal heart sound present GI Inspection: Yes normal to inspection Palpation (GI): Soft to palpation Percussion: Yes normal to percussion Auscultation: normal bowel sounds Rectal Exam - Female: decreased sphincter tone, External hemorrhoid(s) present, Internal hemorrhoid(s) present and heme negative stool External Female Exam: normal external appearance Speculum Exam - Vagina: normal appearance of the vagina Speculum Exam - Cervix: normal appearance of the cervix Bimanual exam- vagina & uterus: normal bimanual exam Coding Level of Care Code Est Pt Level 3 (43113) Diagnoses Rectal bleeding K62.5 Normal Pap smear Z12.4 Assessment & Plan Assessment & Plan (1) Rectal bleeding: Code(s): K62.5 - Hemorrhage of anus and rectum Category: Medical Plan: For the episode of rectal bleeding most likely secondary to hemorrhoids proctocolitis prescribed patient was advised to add fiber to her diet and will be referred to GI for colonoscopy she is due for screening colonoscopy next year, check CBC (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
[2024-01-28 10:01] VITALS: BP 120/70; PULSE 83; O2SAT 98; BMI 25.7
== END 2024-01-28 12:58 | disposition home or self-care (01) ==
PROVIDERS: PCP Internal Medicine; Visit Provider Internal Medicine
DX: K62.5 Hemorrhage of anus and rectum (principal); Z12.4 Encounter for screening for malignant neoplasm of cervix

== ENCOUNTER 2024-02-04 13:00 | Outpatient (RCR) | payer OTHER, SELFPAY ==
--- NOTE | 2024-01-03 10:43 | MHC.PT.EP ---
[facility] [place] Office [place] Office [place] Office [address] Xuan Nam [address] [phone] F: [phone] F: [phone] F: [phone] F: [phone] Physical Therapy Plan of Care Date of Evaluation: 01/03/24 Date of Surgery: n/a Diagnosis: L knee pain Assessment: Patient is a 58 year old female presenting to PT with complaints of pain in her L knee. Pt reports onset of pain began worsening November 2023 due to kneeling when washing the floor. She presents today with impairments in pain, knee ROM, knee strength, hip strength. 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 Clinical presentation today is most consistent with signs and sx associated with L knee pain and pt will benefit from skilled PT 2 week x 4 weeks to address the following problems and impairments noted upon evaluation: pain, knee ROM, knee strength, hip strength. These problems limit the patient with the following functional activities: ADLs, squatting, work, stair negotiation. The prescribed treatment plan of care is medically necessary. Co-morbidities of none were identified and taken into considerations of plan of care. Pt was educated on HEP, role of PT, prognosis, POC. Frequency and Duration: The patient will be seen 2 x week x 4 weeks Short Term Goals: Pt will demonstrate symmetrical ROM in 2 weeks. Pt will demonstrate improved hip MMT strength by 1/3 grade in 2 weeks. Pt will demonstrate 5/5 knee MMT strength in 2 weeks. Snf Goals: Pt will demonstrate improved LEFI score by 9 points in 4 weeks for improved lumbopelvic stability. Pt will demonstrate ability to negotiate stairs with min to no pain in 4 weeks for improved access to her home. Pt will demonstrate ability to squat with min to no pain in 4 weeks for improved tolerance to ADLs. Treatment Plan: Modalities to reduce pain, spasms and effusion. Manual therapy to restore motion and function. Therapeutic exercise to improve strength and flexibility. Neuromuscular re-education for posture and balance. Therapeutic activities to return to functional activities of daily living. Electronically signed by: Bella Leong, PT, DPT, ATC Please sign and return to therapist. Thank you for your referral.
--- NOTE | 2024-02-04 13:52 | MHC.PT.DC ---
[facility] [place] Office [place] Office [place] Office [address] [phone] F: [phone] F: [phone] F: [phone] F: [phone] Physical Therapy Discharge Report Diagnosis: L knee pain Date of Surgery: n/a Date of Evaluation: 01/03/24 Date of Discharge: 02/04/24 Treatments to Date: 5 Cancellations to Date: 0 No Shows to Date: 0 Discharge Status: Achieved Goals Improved Function Independent with HEP Discharge Summary: 02/04/2024: Pt has made good progress since start of care. Her pain is improved and she is primarily feeling only stiffness after prolonged sitting. She is compliant and independent in her HEP. At this time max benefits of PT have been provided and skilled PT is no longer indicated. Pt is in agreement with d/c today. Electronically signed by: Bella Leong, PT, DPT, ATC Please sign and return to therapist. Thank you for your referral.
== END 2024-02-04 13:52 | disposition home or self-care (01) ==
LOC: HO.PTCHIC 13:00
PROVIDERS: PCP Internal Medicine; Visit Provider Internal Medicine
DX: M25.562 Pain in left knee (principal)
CPT/HCPCS: 97110; 97161

== ENCOUNTER 2024-03-17 11:34 | Outpatient (AMB) | payer OTHER, SELFPAY ==
[2024-03-17 11:35] VITALS: BP 124/74; PULSE 74; O2SAT 95; BMI 26.6
--- NOTE | 2024-03-17 11:35 | A.OFFVIS_ITS ---
Vital Signs 03/17/24 11:35 Height 5 ft 3 in Weight 150 lb 5.684 oz BMI 26.6 BP 124/74 Blood Pressure Location Rt brachial Position Sitting Pulse 74 Pulse Source Pulse Oximeter Pulse Oximetry (%) 95 Oxygen Delivery Method Room Air Intake Visit Reasons: K62.5 Hemorrhage of anus and rectum Intake Note: NEW PATIENT Sylvie presents in office today for a scheduled initial assessment Prior hx of colo/egd? Yes, approx. 10 years ago. Prev hx of obstruction resolution 2015. Due this upcoming year per PCP note. Meds and Allergies reviewed? Y Any significant concerns or questions? Possible hemorrhoids per PCP. Bleeding + pain per pt. No constipation. Pharmacy verified? [facility] Dr. Wills Allergies ciprofloxacin Allergy (Unknown, Verified 03/17/24 11:36) Swelling lactate Allergy (Unknown, Uncoded 01/28/24 10:14) Unknown HPI HPI K62.5 Hemorrhage of anus and rectum: Details: 58 years old female with past medical history of hyperlipidemia, GERD, allergic rhinitis, history of shoulder surgery, uterine fibroid, eczema is here today for pre colonoscopy screening.? Patient was sent to us by her PCP. Patient has been experiencing blood after bowel movement, unsure if she has hemorrhoids or not. Patient reports multiple bowel issues in the past. Patient had few bowels surgeries for bowel obstruction in the past. Not sure when she had last colonoscopy but she believes that it was not 2015. Patient reports frequent abdominal bloating postprandially. Patient reports having sometimes multiple bowel movements throughout the day. Patient is not eating too much fiber. Sometimes she eats food quickly. 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. No family history of CRC.? Denies history of difficulty with sedation or anesthesia in the past.? Negative for history of sleep apnea.? Denies any history of cardiac, renal, pulmonary, or hepatic disease.?? No history of infectious? diseases like hepatitis A, B, C, HIV or tuberculosis.? Patient is not on any anticoagulation [facility] Medical History Abnormal mammogram of left breast Urinary retention with incomplete bladder emptying Annual physical exam Urinary frequency Eczema Tick bite Annual physical exam Normal colonoscopy Normal Pap smear Cough Seronegative arthritis Osteoarthritis Bowel obstruction Surgical History History of appendectomy Family History Father Prostate cancer Mother Glaucoma Brother Tonsil cancer Social History Housing: House Alcohol intake: never Patient Tobacco Use Status: Never used Tobacco e-Cigarette/Vaping Use: Never Used service: No Current occupational status: employed Cognitive needs: No Hearing needs: No Vision needs: No Review of Systems Const Denies weight gain and Denies weight loss ENT Reports no additional complaints, Denies dysphagia and Denies odynophagia Card Reports no additional complaints Resp Reports no additional complaints GI Denies abdominal pain, Denies belching, Denies melena, Reports bloating, Reports hematochezia, Denies change in bowel habits, Denies dysphagia, Denies excessive flatus, Denies dyspepsia, Denies heartburn, Denies diarrhea, Denies loose stools, Denies nausea, Denies odynophagia and Denies vomiting Reports no additional complaints Musc Reports no additional complaints Neuro Reports no additional complaints Psych Reports no additional complaints Endo Reports no additional complaints Physical Exam Vital Signs: Last Vital Signs Pulse 74 03/17/24 11:35 BP 124/74 03/17/24 11:35 Pulse Ox 95 03/17/24 11:35 Oxygen Delivery Method Room Air 03/17/24 11:35 BMI result Body Mass Index 26.6 Const General: healthy appearing, no acute distress and well developed Nutritional Appearance: well nourished Orientation/consciousness: patient oriented x3 Resp Effort & Inspection: normal respiratory effort, able to speak in complete sentences, no tracheal deviation and symmetric chest movement Auscultation: clear to auscultation bilaterally Cardio Rate: regular rate GI Inspection: Yes normal to inspection and No distended Palpation (GI): Soft to palpation, not firm, nontender and No hepatosplenomegaly present Auscultation: normal bowel sounds General: Yes no CVA tenderness Back/Spine/Pelvis Back: no CVA tenderness Skin General skin exam: elasticity normal, turgor normal and dry skin Neuro General: patient oriented x3 Psych Appearance: grossly normal Mental Status: mental status grossly normal Assessment & Plan Assessment & Plan (1) Rectal bleeding: Code(s): K62.5 - Hemorrhage of anus and rectum Category: Medical (2) Postprandial abdominal bloating: Code(s): R14.0 - Abdominal distension (gaseous) (3) IBS (irritable bowel syndrome): Code(s): K58.9 - Irritable bowel syndrome, unspecified Qualifiers: Irritable bowel syndrome type: with both diarrhea and constipation Qualified Code(s): K58.2 - Mixed irritable bowel syndrome (4) Hemorrhoids without complication: Code(s): K64.9 - Unspecified hemorrhoids Plan Discussed with patient low FODMAP diet. List of food recommended as well as list of food to avoid given to patient. Patient has multiple bowel movements throughout the day. Kegel exercise examples given to patient. Patient reports to be very gassy and bloated. Discussed with patient avoiding certain food especially starchy food and bread. Patient will try [id number] fiber supplement with probiotics to help her bulk stools. Message sent to surgical schedulers to book procedure for patient. Patient describes rectal bleeding as blood on toilet paper when wiping after bowel movement. No actual blood seen in the stool. Script for Proctosol send. Patient will return in 2 months to discuss going for colonoscopy and going over the prep. She is agreeable to this plan and verbalizes understanding of instructions. She was given the opportunity to ask questions and all questions answered. Thank you for allowing me to participate in her care Medications: New hydrocortisone 2.5% (Proctosol HC) 1 appl MT BID-QID PRN 30 grams 2RF hemorrhoids K64.9 - Unspecified hemorrhoids Coding Level of Care Code New Pt Level 4 (62716) Diagnoses Rectal bleeding K62.5 Postprandial abdominal bloating R14.0 Irritable bowel syndrome with both constipation and diarrhea K58.2 Irritable bowel syndrome type: with both diarrhea and constipation Hemorrhoids without complication K64.9 Time Spent (min) 45 Comment 30 minutes spent with patient and additional 15 minutes spent reviewing her records
--- OUTSIDE RECORDS SUMMARY | 2024-03-17 11:39 | XMS_ITS ---
Author Name [facility] Organization Unknown Results Test Name/Text Value Interpretation Date Range Source INR PPP 1 Normal [id number] [facility] Prothrombin time 11seconds Normal [id number] 10 - 13.5 [facility] aPTT PPP 32seconds Normal [id number] 25 - 36 [facility] Anticoagulant Normal [id number] [facility] Anticoagulant Normal [id number] [facility] CT History of Medication Use Medication Directions Dispensed Refills Start Date End Date Stat amoxicillin (AMOXIL) 500 MG capsule Take 1 capsule (500 mg total) by mouth 3 (three) times a day. 02/08/2024 03/18/9999 active ibuprofen (MOTRIN) 800 mg tablet Take 1 tablet (800 mg total) by mouth See Admin Instructions. EVERY 4 TO 6 HOURS NEEDED. 02/08/2024 03/18/9999 active ondansetron (ZOFRAN) 4 MG tablet 1 TABLET EVERY 4 TO 6 HOURS NEEDED FOR NAUSEA 02/08/2024 03/18/9999 active famotidine (PEPCID) 20 MG tablet Take 1 tablet (20 mg total) by mouth 2 (two) times a day. 02/08/2024 03/18/9999 active lidocaine (LIDODERM) 5 % patch Place 1 patch on the skin daily as needed. 11/29/2023 active calcium carbonate-vitamin D (CALTRATE+D) 600 mg-10 mcg tablet Take 1 tablet by mouth every morning with breakfast. 11/29/2023 active Multiple Vitamins-Minerals (Multivitamin Adult, Minerals,) Tab Take by mouth daily. 11/29/2023 active glucosamine chondroitin complex (OSTEO BI-FLEX) Tab tablet Take 1 tablet by mouth daily. 11/29/2023 active triamcinolone (KENALOG) 0.1 % lotion Apply 1 Application topically daily. 11/29/2023 active ascorbic acid (VITAMIN C) 500 MG Tab CR Take 1 tablet (500 mg total) by mouth daily. 11/29/2023 active folic acid (FOLVITE) 1 MG tablet Take 1 tablet (1 mg total) by mouth daily. 11/29/2023 active methoTREXate (RHEUMATREX) 2.5 mg tablet Take 4 tablets (10 mg total) by mouth once a week 11/29/2023 active meloxicam (MOBIC) 15 MG tablet Take 1 tablet (15 mg total) by mouth daily as needed. 11/29/2023 active OMEprazole (PriLOSEC OTC) 20 MG tablet Take 1 tablet (20 mg total) by mouth daily as needed. 11/29/2023 active Problems Problem Status Onset Date Problem Type Date of Resolution Source Overweight (BMI 25.0-29.9) active 2023-11-26 ProblemAct [facility] Gastroesophageal reflux disease without esophagitis active EncounterDiagnosisAct [facility] DVT (deep venous thrombosis) active 2015-03-19 ProblemAct [facility] Pain in throat active EncounterDiagnosisAct [facility] Heartburn active 2023-11-26 ProblemAct [facility]
== END 2024-03-17 12:42 | disposition home or self-care (01) ==
PROVIDERS: PCP Internal Medicine; Visit Provider Nurse Practitioner Family
DX: K62.5 Hemorrhage of anus and rectum (principal); R14.0 Abdominal distension (gaseous); K58.2 Mixed irritable bowel syndrome; K64.9 Unspecified hemorrhoids
CPT/HCPCS: 99204

== ENCOUNTER 2024-04-10 12:42 | Outpatient (AMB) | payer OTHER, SELFPAY ==
[2024-04-10 13:06] VITALS: BP 120/68; PULSE 93; TEMP 36.8; O2SAT 97; BMI 25.9
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
== END 2024-04-10 14:56 | disposition home or self-care (01) ==
PROVIDERS: PCP Internal Medicine; Visit Provider Internal Medicine
DX: M54.2 Cervicalgia (principal)

== ENCOUNTER → 2024-04-10 12:42 | Outpatient (BNVA) | payer OTHER, SELFPAY | PROVIDERS: PCP Internal Medicine; Visit Provider Internal Medicine ==

== ENCOUNTER 2024-06-25 10:10 | Day surgery (SDC) | payer OTHER, SELFPAY ==
[2024-06-23 14:36] VITALS: BMI 25.9
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
[2024-06-25 11:07] VITALS: BP 124/73; PULSE 87; RESP 16; TEMP 36.6; O2SAT 96; BMI 23.8
[2024-06-25] MEDS: Lactated Ringers 1,000 ML 100 ML IVCONT (11:19)
--- NOTE | 2024-06-25 11:44 | P.HPSUR_ITS ---
Pre-Procedural Eval Section A - 24 Hr Update-Section A only Date of Service: 06/25/24 Section B - Complete if H&P > 30 days Chief Complaint: Encounter for screening for malignant neoplasm of Relevant Family History (Specify if Yes): No Relevant Social History: None Present Medications: see Short Stay Collaborative assessment Medical History: Significant History (Hyperlipidemia GERD (gastroesophageal re flux disease) Urinary retention with incomplete bladder emptying Urinary frequency Eczema Seronegative arthritis Osteoarthritis Bowel obstruction) History of Previous Operations: Relevant previous surgery/procedure and date(s) ( Hx of shoulder surgery History of esophagogastroduodenoscopy (EGD) H/O colonoscopy History of appendectomy) Allergies: Allergies Allergy/AdvReac Type Severity Reaction Status Date / Time ciprofloxacin Allergy Intermediate Swelling Verified 06/25/24 11:05 lactose Allergy Unknown Unknown Verified 06/25/24 11:05 Review of Systems Sugical H&P ROS: Negative: Constitution, Cardiovascular, Respiratory, Neurological, Psychiatric, Hem-Onc, Allergic/Immunologic, Gastrointestinal, Genitourinary, Musculoskeletal, Integumentary, Endocrine and Eyes/Ears/Nose/Throat Exam Surgical H&P Exam: Normal: HEENT, Normal: Heart, Normal: Lungs, Normal: Extremities, Normal: Abdomen, Normal: Skin and Normal: Neurological Plan Diagnosis/Plan: Unchanged I have reviewed the history and physical and performed a pertinent physical examination on my patient. No changes have occurred unless specified. Time Spent With Patient Time: Total time managing care of this patient today ____ minutes.
--- NOTE | 2024-06-25 12:21 | HO.OPN-COLON ---
Colonoscopy Operative Note Operative Note Date of Service: 06/25/24 Narrative: Operative Information Procedure Description: Colonoscopy Indication: screening Anesthesia: MAC COLONOSCOPY Instrument: Olympus variable stiffness pediatric scope 190L Colonoscopy Monitoring: Vital signs and clinical assessment, continuous EKG monitoring, Pulse oximetry, Carbon Dioxide monitoring and blood pressure monitoring were done throughout the procedure. Colon withdrawal time was 10 minutes. Procedure: The patient was placed in the left lateral decubitis position and pre-procedure medications were administered. After a digital rectal examination of the ano-rectum, the video colonoscope was inserted into the rectum and advanced through the colon to the cecum/TI. The colonoscope was slowly withdrawn in a retrograde panoramic fashion and the colon mucosa was carefully examined including a retroflexed view of the rectum. Findings and interventions are described below. Procedure Difficulty: easy Findings: Terminal Ileum-normal swelling and inflammation around the ileocecal valve with some white slough and micro abscesses, bx taken Cecum:normal Ascending Colon: normal, random bx taken Transverse Colon - flat polyp 7-9 mm lifted with eleview and removed with cold snare Descending Colon:normal Sigmoid Colon: normal Rectum: Retroflexion with small internal hemorrhoids seen, grade I Anorectum - normal Intervention: eleview injection and cold snare, cold forceps bx Colon preparation: [place] Bowel Preparation Scale Right colon; 3 Transverse colon: 3 Left colon; 3 (0 = Unprepared colon segment with mucosa not seen due to solid stool that cannot be cleared. 1 = Portion of mucosa of the colon segment seen, but other areas of the colon segment not well seen due to staining, residual stool and/or opaque liquid. 2 = Minor amount of residual staining, small fragments of stool and/or opaque liquid, but mucosa of colon segment seen well. 3 = Entire mucosa of colon segment seen well with no residual staining, small fragments of stool or opaque liquid) Impression and Post Procedure Diagnosis: ileo cecal valve inflammation colon polyp internal hemorrhoids Plan: High fiber diet leaflet Avoid straining at stool, epsom salts and sitz bath, anusol supps or cream Repeat Colonoscopy in 5 years if pre cancerous polyp, otherwise 10 yrs or earlier if clinically indicated if concern for crohn then CTe Above findings were reviewed with the patient and relevant handouts were provided if indicated.
[2024-06-25 12:29] VITALS: BP 97/56; PULSE 70; RESP 15; TEMP 36.1; O2SAT 96
[2024-06-25 12:44] VITALS: BP 116/71; PULSE 69; RESP 16; TEMP 36.1; O2SAT 99
== END 2024-06-25 13:48 | disposition home or self-care (01) ==
PROVIDERS: PCP Internal Medicine; Visit Provider Internal Medicine Gastroenterology
PROC: 0DJD8ZZ Inspection of Lower Intestinal Tract, Via Natural or Artificial Opening Endoscopic (ICD-10-PCS; CPT 45378; principal; 2024-06-25 13:10)
DX: Z12.11 Encounter for screening for malignant neoplasm of colon (principal); K63.5 Polyp of colon; K64.0 First degree hemorrhoids; K52.9 Noninfective gastroenteritis and colitis, unspecified; K56.609 Unspecified intestinal obstruction, unspecified as to partial versus complete obstruction; E78.5 Hyperlipidemia, unspecified; K21.9 Gastro-esophageal reflux disease without esophagitis; R33.9 Retention of urine, unspecified; R35.0 Frequency of micturition; M13.80 Other specified arthritis, unspecified site; L30.9 Dermatitis, unspecified; Z79.899 Other long term (current) drug therapy; Z91.011 Allergy to milk products; Z88.1 Allergy status to other antibiotic agents
CPT/HCPCS: 45385; 45380; 45381; 88305; J2003; J2704

== ENCOUNTER → 2024-06-25 10:10 | Outpatient (BNV) | payer OTHER, SELFPAY | PROVIDERS: PCP Internal Medicine; Visit Provider Internal Medicine Gastroenterology | DX: Z12.11 Encounter for screening for malignant neoplasm of colon (principal); K63.5 Polyp of colon; K64.8 Other hemorrhoids; K52.89 Other specified noninfective gastroenteritis and colitis | CPT/HCPCS: 45380; 45381; 45385 ==

== ENCOUNTER 2024-07-16 10:09 | Outpatient (REF) | payer OTHER, SELFPAY ==
[2024-07-16 12:58] LABS: Blood Urea Nitrogen 18 mg/dL (9-16); Estimated Glomerular Filt Rate > 60
--- OUTSIDE RECORDS SUMMARY | 2024-07-16 13:02 | XMS_ITS | Encounter Summary ---
Author Organization [facility] Address [address] [place] [address] Care Team Providers Care Electrical Engineering Designer Name Role Phone Lyudmila Talley DO Primary Care Pro vider Unavailable So Ellison MD Primary Care Provider Blair campo Encounter Details Date Type Department Care Team Description 03/24/2018 Professor Of Journalism Report Medical Records [address] [place] [address] Abstract, Provider Social History Tobacco Use Types Packs/Day Years Used Date Smoking Tobacco: Former Cigarettes Q uit: 12/21/1983 Smokeless Tobacco: Never Comments:Currently not smoki ng Alcohol Use Standard Drinks/Week Comments No 0 (1 standard drink = 0.6 oz pur e alcohol) Sex Assigned at Date Recorded Not on file Job Start Date Occupation Industry Not on file Not on file Not on file documented as of this encounter Plan of Treatment Not on file documented as of this encounter Visit Diagnoses Not on filedocumented in this encounter Care Teams Electrical Engineering Designer Relationship Specialty Start Date End Date Lyudmila Talley DO PCP - General Internal Medicine 06/02/13 08/01/21 So Ellison MD PCP - General Internal Medicine 08/02/21 documented as of this encounter
--- OUTSIDE RECORDS SUMMARY | 2024-07-16 13:02 | XMS_ITS | Encounter Summary ---
Author Organization [facility] Address [address] [place] [address] Care Team Providers Care Corporate Development Officer Name Role Phone Lyudmila Talley DO Primary Care Pro vider Unavailable So Ellison MD Primary Care Provider Blair campo Encounter Details Date Type Department Care Team Description 06/30/2014 Orders Only Adult Medicine [address] [address] Lyudmila Talley DO Knee pain, left (Primary Dx) Social History Tobacco Use Types Packs/Day Years [...] documented as of this encounter Visit Diagnoses Diagnosis Knee pain, left- Primary Pain in joint, lower leg documented in this encounter Care Teams Corporate Development Officer Relationship Specialty Start Date End Date Lyudmila Talley DO PCP - General Internal Medicine 06/02/13 08/01/21 So Ellison MD PCP - General Internal Medicine 08/02/21 documented as of this encounter
--- OUTSIDE RECORDS SUMMARY | 2024-07-16 13:02 | XMS_ITS | Encounter Summary ---
Author Organization [facility] Address [address] [place] [address] Care Team Providers Care Vice President Of Product Marketing Name Role Phone Lyudmila Talley DO Primary Care Pro vider Unavailable So Ellison MD Primary Care Provider Unavaila ble Reason for Visit * Reason Onset Date Comments Abnormal Mammogram 07/13/2021 Encounter Details Date Type Department Care Team Description 07/13/2021 Telephone Radiology - [address] [address] Radiology, Authorizing Abnormal Mammogram Social History Tobacco Use Types Packs/Day Years Used Date Smoking Tobacco: Former Cigarettes Q uit: 12/21/1983 Smokeless Tobacco: Never Comments:Currently not smoki ng Alcohol Use Standard Drinks/Week Comments No 0 (1 standard drink = 0.6 oz pur e alcohol) Sex Assigned at Date Recorded Not on file Job Start Date Occupation Industry Not on file Not on file Not on file COVID-19 Exposure Response Date Recorded In the last 10 days, have king tao been in contact with someone who was confirmed or suspected to have Coronavirus/COVID-19? No / Unsure 07/06/2021 7:51 AM EDT documented as of this encounter Miscellaneous Notes * Telephone Encounter - Xiomara Cisneros - 07/13/2021 9:14 AM EDT Left message to schedule pt for additional views karen documented in this encounter Plan of Treatment Not on file documented as of this encounter Visit Diagnoses Not on filedocumented in this encounter Care Teams Vice President Of Product Marketing Relationship Specialty Start Date End Date Lyudmila Talley DO PCP - General Internal Medicine 06/02/13 08/01/21 So Ellison MD PCP - General Internal Medicine 08/02/21 documented as of this encounter
--- OUTSIDE RECORDS SUMMARY | 2024-07-16 13:02 | XMS_ITS | Encounter Summary ---
[facility] Organization [facility] Address [address] [place] [address] Care Team Providers Care Felt Washing Machine Tender Name Role Phone Lyudmila Talley DO Primary Care Pro vider Unavailable So Ellison MD Primary Care Provider Blair campo Encounter Details Date Type Department Care Team Description 01/19/2020 Transfer Records Medical Records [address] [place] [address] Abstract, Provider Social History Tobacco Use Types [...] Exposure Response Date Recorded In the last month, have you been in contact with someone who was confirmed or suspected to have Coronavirus / COVID-19? No / Unsure 01/14/2020 8:06 AM EDT documented as of this encounter Plan of Treatment Not on file documented as of this encounter Visit Diagnoses Not on filedocumented in this encounter Care Teams Felt Washing Machine Tender Relationship Specialty Start Date End Date Lyudmila Talley DO PCP - General Internal Medicine 06/02/13 08/01/21 So Ellison MD PCP - General Internal Medicine 08/02/21 documented as of this encounter
--- OUTSIDE RECORDS SUMMARY | 2024-07-16 13:02 | XMS_ITS | Encounter Summary ---
Author Organization [facility] Address [address] [place] [address] Care Team Providers Care Wire Spooler Name Role Phone Lyudmila Talley DO Primary Care Pro vider Unavailable So Ellison MD Primary Care Provider Unavaila ble Reason for Visit * Reason Comments E-prescribe Rx Request Encounter Details Date Type Department Care Team Description 06/09/2019 Refill Adult Medicine [address] [address] Lyudmila Talley DO E-prescribe Rx Request Social History Tobacco Use Types Packs/Day Years [...] on file documented as of this encounter Miscellaneous Notes * Telephone Encounter - Carolyne Sosa - 06/09/2019 11:27 AM EDT Patient would like script to be: E-PRESCRIBED/FAXED TO PHARMACY WHEN WAS THE PATIENT'S LAST APPOINTMENT IN ADULT MEDICINE? 09/23/18 WHEN WAS THE LAST TIME THE PATIENT SAW THEIR PCP? Same as above Does patient have an upcoming appointment? Patient was sent a My Chart request to set up an appointment as they are due. (THE MEDICATION REQUESTED IS ON THE MED LIST ABOVE) All of the medications requested were on the CURRENT MEDS list Did you check the Pharmacy information above?: YES Patient wants: 30 -day supply Is this a mail order prescription request ? YES If the refill is from a FAXED refill request what is the RX # listed on the fax? N/A Patients current insurance carrier is: Payor: [employer] / Plan: [employer] $20 [place] 1500 / Product Type: [employer] [id number] documented in this encounter Plan of Treatment Not on file documented as of this encounter Visit Diagnoses Not on filedocumented in this encounter Care Teams Wire Spooler Relationship Specialty Start Date End Date Lyudmila Talley DO PCP - General Internal Medicine 06/02/13 08/01/21 So Ellison MD PCP - General Internal Medicine 08/02/21 documented as of this encounter
--- OUTSIDE RECORDS SUMMARY | 2024-07-16 13:02 | XMS_ITS | Encounter Summary ---
Author Organization [facility] Address [address] [place] [address] Care Team Providers Care Corn Detasseler Name Role Phone Lyudmila Talley DO Primary Care Pro vider Unavailable So Ellison MD Primary Care Provider Unavaila ble Reason for Visit * Reason Onset Date Comments Nuclear Stress Testing 07/30/2013 Encounter Details Date Type Department Care Team Description 07/30/2013 Telephone Adult Medicine [address] [address] Lyudmila Talley DO Nuclear Stress Testing Social History Tobacco Use Types Packs/Day Years [...] encounter Miscellaneous Notes * Telephone Encounter - Cristine Thacker - 07/30/2013 10:05 AM EDT FYI: You placed an order for a nuclear stress test (insurance auth [id number] til 08-11) I spoke withthis woman again for the second time and she states she is refusing to have the test done that her heart is not her issue We have removed the order from our report documented in this encounter Plan of Treatment Not on file documented as of this encounter Visit Diagnoses Not on filedocumented in this encounter Care Teams Corn Detasseler Relationship Specialty Start Date End Date Lyudmila Talley DO PCP - General Internal Medicine 06/02/13 08/01/21 So Ellison MD PCP - General Internal Medicine 08/02/21 documented as of this encounter
--- OUTSIDE RECORDS SUMMARY | 2024-07-16 13:02 | XMS_ITS | Encounter Summary ---
Author Organization [facility] Address [address] [place] [address] Care Team Providers Care Laborer Petroleum Refinery Name Role Phone Lyudmila Talley DO Primary Care Pro vider Unavailable So Ellison MD Primary Care Provider Unavaila ble Reason for Visit * Reason Onset Date Comments poison michelle 12/17/2014 Encounter Details Date Type Department Care Team Description 12/17/2014 Telephone Adult Medicine [address] [address] Lyudmila Talley DO poison michelle Social History Tobacco Use Types Packs/Day Years [...] encounter Miscellaneous Notes * Telephone Encounter - Yuliana Jacobson M.A. - 12/18/2014 8:12 AM EDT Notes given to Adenike jarrell. * Telephone Encounter - Adenike Cheng R.N. - 12/17/2014 10:08 AM EDT Please pull records for this visit, pt has been seen several times for this and is already getting antibiotics for an infection, see by cecil on 12/14, after I review the records with PCP I will be able to book appropriately * Telephone Encounter - Eileen Lawson - 12/17/2014 9:29 AM EDT Symptoms patient is presenting: william martinez, was seen on 12/14/14 but says she is not better. Pt [facility] to [facility] on 12/16/14, she says she has an infection on her left knee. She wants to see tarik If pain or injury related was it due to an accident at work or from a motor vehicle accident? NO If yes, gather 3rd republican insurance information Date of accident/Injury: How long has patient had these symptoms?: ongoing PCP: Lyudmila Gerardo Payor: [email or web address] [place] / Plan: Small [employer] $20 [place] 1 / Product Type: HMO [id number] documented in this encounter Plan of Treatment Not on file documented as of this encounter Visit Diagnoses Not on filedocumented in this encounter Care Teams Laborer Petroleum Refinery Relationship Specialty Start Date End Date Lyudmila Talley DO PCP - General Internal Medicine 06/02/13 08/01/21 So Ellison MD PCP - General Internal Medicine 08/02/21 documented as of this encounter
--- OUTSIDE RECORDS SUMMARY | 2024-07-16 13:02 | XMS_ITS | Encounter Summary ---
Author Organization [facility] Address [address] [place] [address] Care Team Providers Care Support Service Tech Name Role Phone Lyudmila Talley DO Primary Care Pro vider Unavailable So Ellison MD Primary Care Provider Blair campo Encounter Details Date Type Department Care Team Description 04/10/2019 Qa Automation Engineer Report Medical Records [address] [place] [address] Carol Lu MD Social History Tobacco Use Types Packs/Day Years [...] on filedocumented in this encounter Care Teams Support Service Tech Relationship Specialty Start Date End Date Lyudmila Talley DO PCP - General Internal Medicine 06/02/13 08/01/21 So Ellison MD PCP - General Internal Medicine 08/02/21 documented as of this encounter
--- OUTSIDE RECORDS SUMMARY | 2024-07-16 13:02 | XMS_ITS | Encounter Summary ---
Author [facility] Address [address] [place] [address] Care Team Providers Care Bobbin Sorter Name Role Phone Lyudmila Talley DO Primary Care Pro vider Unavailable So Ellison MD Primary Care Provider Unavailcamryn campo Encounter Details Date Type Department Care Team Description 04/19/2020 Bitumastic Applier Report Medical Records [address] [place] [address] Carol Lu MD Social History Tobacco Use [...] have Coronavirus / COVID-19? No / Unsure 04/01/2020 7:54 AM EST documented as of this encounter Plan of Treatment Not on file documented as of this encounter Visit Diagnoses Not on filedocumented in this encounter Care Teams Bobbin Sorter Relationship Specialty Start Date End Date Lyudmila Talley DO PCP - General Internal Medicine 06/02/13 08/01/21 So Ellison MD PCP - General Internal Medicine 08/02/21 documented as of this encounter
--- OUTSIDE RECORDS SUMMARY | 2024-07-16 13:02 | XMS_ITS | Encounter Summary ---
[facility] Address [address] [place] [address] Care Team Providers Care Estate Tax Examiner Name Role Phone Lyudmila Talley DO Primary Care Pro vider Unavailable So Ellison MD Primary Care Provider Blair campo Encounter Details Date Type Department Care Team Description 10/15/2018 Supervisor Car And Yard Report Medical Records [address] [place] [address] Abstract, Provider Social History Tobacco Use Types [...] on filedocumented in this encounter Care Teams Estate Tax Examiner Relationship Specialty Start Date End Date Lyudmila Talley DO PCP - General Internal Medicine 06/02/13 08/01/21 So Ellison MD PCP - General Internal Medicine 08/02/21 documented as of this encounter
--- OUTSIDE RECORDS SUMMARY | 2024-07-16 13:02 | XMS_ITS | Encounter Summary ---
Author Organization [facility] Address [address] [place] [address] Care Team Providers Care Supervisor Mail Carriers Name Role Phone Melvina Ch MD Primary Care Provider [phone] Lyudmila Tlaley DO Primary Care Pro vider Unavailable So Ellison MD Primary Care Provider Unavaila ble Reason for Visit * Reason Onset Date Comments medication problems 08/06/2012 Encounter Details Date Type Department Care Team Description 08/06/2012 Refill Adult Medicine [address] [address] Lauren Boone PA-C medication problems Social History Tobacco Use Types Packs/Day Years Used Date Smoking Tobacco: Former Cigarettes Q uit: 12/21/1983 Comments:Currently not smoki ng Alcohol Use Standard Drinks/Week Comments No 0 (1 standard drink = 0.6 oz pur e alcohol) Sex Assigned at Date Recorded Not on file Job Start Date Occupation Industry Not on file Not on file Not on file documented as of this encounter Miscellaneous Notes * Telephone Encounter - Lisa Osorio M.A. - 08/06/2012 2:47 PM EDT Demetrius Vlaadez spoke with Irma, provided FELICIA # for Lauren. Should be all set. * Telephone Encounter - Tori Marion - 08/06/2012 2:26 PM EDT What is the name of the medication patient is having a problem with?: FLONASE AUGMENT AND CLARITIN What is the problem?: THE PHARMACY DOESN'T HAVE THE LAUREN BOONE FELICIA NUMBER AND THE SCRIPTS CANT BE PROCESS WITHOUT IT. Is the patient calling about the problem? NO If the patient is not the caller who is? CALL FROM PHARMACY Is this a NEW medication?: YES How long has the patient been taking this medication? TODAY Who prescribed this medication for the patient? LAUREN BOONE Who is patients PCP?: Melvina Ch MD Payor: [employer] [facility] Generate Plan: [employer] $20 [place] [employer] Product Type: [employer] Ovm-oos-Aonjtcx documented in this encounter Plan of Treatment Not on file documented as of this encounter Visit Diagnoses Not on filedocumented in this encounter Care Teams Supervisor Mail Carriers Relationship Specialty Start Date End Date Melvina Ch MD [address] [place] [address] PCP - General Internal Medicine 02/28/11 06/01/13 Lyudmila Talley DO [address] [place] [address] PCP - General Internal Medicine 06/02/13 08/01/21 So Ellison MD [address] [place] [id number] PCP - General Internal Medicine 08/02/21 documented as of this encounter
--- OUTSIDE RECORDS SUMMARY | 2024-07-16 13:02 | XMS_ITS | Encounter Summary ---
[facility] Address [address] [place] [address] Care Team Providers Care Cut In Worker Name Role Phone Lyudmila Talley DO Primary Care Pro vider Unavailable So Ellison MD Primary Care Provider Blair campo Encounter Details Date Type Department Care Team Description 09/24/2015 Hospital Medical Records [address] [place] [address] Enriqueta Paulson PA [address] [place] [address] Social History Tobacco Use Types Packs/Day Years [...] on filedocumented in this encounter Care Teams Cut In Worker Relationship Specialty Start Date End Date Lyudmila Talley DO PCP - General Internal Medicine 06/02/13 08/01/21 So Ellison MD PCP - General Internal Medicine 08/02/21 documented as of this encounter
--- OUTSIDE RECORDS SUMMARY | 2024-07-16 13:02 | XMS_ITS | Encounter Summary ---
[facility] Address [address] [place] [address] Care Team Providers Care Lead Cook Name Role Phone Lyudmila Talley DO Primary Care Pro vider Unavailable So Ellison MD Primary Care Provider Blair campo Encounter Details Date Type Department Care Team Description 10/01/2014 Release of Information Medical Records [address] [place] [address] Abstract, Provider Social History Tobacco Use Types [...] on filedocumented in this encounter Care Teams Lead Cook Relationship Specialty Start Date End Date Lyudmila Talley DO PCP - General Internal Medicine 06/02/13 08/01/21 So Ellison MD PCP - General Internal Medicine 08/02/21 documented as of this encounter
--- OUTSIDE RECORDS SUMMARY | 2024-07-16 13:03 | XMS_ITS | Clinical Summary ---
Author Organization [facility] Address [address] [place] [address] Care Team Providers Care Yarn Packer Name Role Phone So Ellison MD Primary Care Provider [phone] Allergies Active Allergy Reactions Criticality Noted Date [...] Description 07/30/2024 11:45 AM EDT Office Visit [facility] [address] [place] [address] Beverly Starks PA-C [address] [place] [address] Health Maintenance Due Date Last [...] Inactivated Comments 12/14/2023 5:50 AM Care Teams Yarn Packer Relationship Specialty Start Date End Date So Ellison MD [address] [place] [id number] PCP - General 10/31/23
--- OUTSIDE RECORDS SUMMARY | 2024-07-16 13:03 | XMS_ITS | Encounter Summary ---
Author Organization [facility] Address [address] [place] [address] Care Team Providers Care Director Of Restaurant Operations Name Role Phone Melvina Ch MD Primary Care Provider [phone] Lyudmila Talley DO Primary Care Pro vider Unavailable So Ellison MD Primary Care Provider Unavaila ble Encounter Details Date Type Department Care Team Description 12/29/2011 Orders Only General Surgery [address] [place], [place] [id number] Sergio Morales MD Social History Tobacco Use Types Packs/Day [...] on file documented as of this encounter Results * STRTCTC LOCLZJ GID BREAST BX/NEEDLE PLACEMENT (01/17/2012) Sergio Morales MD RADIOLOGY documented in this encounter Visit Diagnoses Not on filedocumented in this encounter Care Teams Director Of Restaurant Operations Relationship Specialty Start Date End Date Melvina Ch MD [address] [place] [address] PCP - General Internal Medicine 02/28/11 06/01/13 Lyudmila Talley DO [address] [place] [address] PCP - General Internal Medicine 06/02/13 08/01/21 So Ellison MD [address] [place] [address] PCP - General Internal Medicine 08/02/21 documented as of this encounter
--- OUTSIDE RECORDS SUMMARY | 2024-07-16 13:03 | XMS_ITS | Encounter Summary ---
Author Organization [facility] Address [address] [place] [address] Care Team Providers Care Dog Licenser Name Role Phone Lyudmila Talley DO Primary Care Pro vider Unavailable So Ellison MD Primary Care Provider Blair campo Encounter Details Date Type Department Care Team Description 10/14/2015 Glass Presser Report Medical Records [address] [place] [address] Filemon Quezada MD Social History Tobacco Use Types Packs/Day [...] on filedocumented in this encounter Care Teams Dog Licenser Relationship Specialty Start Date End Date Lyudmila Talley DO PCP - General Internal Medicine 06/02/13 08/01/21 So Ellison MD PCP - General Internal Medicine 08/02/21 documented as of this encounter
--- OUTSIDE RECORDS SUMMARY | 2024-07-16 13:03 | XMS_ITS | Clinical Summary ---
Author Organization [facility] Address [address] [place] [address] Care Team Providers Care Wine Blender Name Role Phone So Ellison MD Primary Care Provider [phone] Surgical History Surgery Date Site/Laterality Comments APPENDECTOMY PROCEDURE: ME APPENDECTOMY FLEXIBLE SIGMOIDOSCOPY 10/01/07 PROCEDURE: ME SIGMOIDOSCOPY FLX DX W/COLLJ SPEC BR/WA IF PFRMD; COMMENT: normal BOWEL RESECTION 06/27 PROCEDURE: HISTORICAL BOWEL RESECTION; COMMENT: blockage, some intestine rmoved OTHER SURGICAL HISTORY 09/16/13 PROCEDURE: COLONOSCOPY, REMOVE LESION; COMMENT: [facility], tubular adenoma and hyperplastic polyp ABDOMINAL SURGERY 09/14/15 PROCEDURE: ME UNLISTED PROCEDURE ABDOMEN PERITONEUM & OMENTUM BREAST [...] CMS/HCC V28) DX:SBO (small bowel obstruct ion) ([facility]); COMMENT: partial Lyme disease DX:Lyme disease Family [...] 08/01/2024 8:00 AM EDT Appointment Radiology Department [address] [address] Health Maintenance Due Date Last Done Comments [...] RESULTING AGENCY - 06/14/2018 4:28 PM EDT [id number] THINPREP PAP, IMAGED: NEGATIVE FOR SQUAMOUS INTRAEPITHELIAL [...] Recently Relevant to Health Maintenance Care Teams Wine Blender Relationship Specialty Start Date End Date So Ellison MD PCP - General Internal Medicine 08/02/21
--- OUTSIDE RECORDS SUMMARY | 2024-07-16 13:03 | XMS_ITS | Clinical Summary ---
[facility] Address [address] [place] [address] Care Team Providers Care Deep Well Contractor Name Role Phone oS Ellison MD Primary Care Provider Unavaila ble Allergies Active Allergy Reactions Severity Noted Date Comments Ciprofloxacin Hives/Urticaria 07/29/2010 Medications Medication Sig Dispensed Refills Start Date End Date Status Calcium Carb-Cholecalciferol (CALCIUM-VITAMIN D) 600-400 MG-UNIT Tab Take 1 Tab by mouth daily. 0 Active Multiple Vitamins-Minerals (MULTIVITAMIN ADULT) Tab Take by mouth. 0 Active Ascorbic Acid (VITAMIN C CR OR) Take by mouth. 0 Act frederick meloxicam (MOBIC) 15 MG tablet Take 15 mg by mouth daily. 0 Active fluticasone 50 MCG/ACT nasal spray 2 sprays each nostril twice daily x 1 week then once daily as needed. 16 g 0 01/02/2018 Active hydroxychloroquine (PLAQUENIL) 200 MG tablet Take 200 mg by mouth 2 times daily. 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 01/18/2018 Paresthesias in right hand 01/18/2018 History of DVT (deep vein thrombosis) Family history of DVT 11/29/2015 Subserosal leiomyoma of uterus 1 PPD positive 09/07/2010 Overview: August, cxr neg Neuralgia, neuritis, and radiculitis, un specified 06/08/2006 Chest pain, unspecified 06/08/2006 Resolved Problems Problem Noted Date Resolved Date Lyme disease 02/18/2018 07/21/2019 Acute deep vein thrombosis ( DVT) of axillary vein of right upper extremity 01/24/2016 01/02/2018 DVT of upper extremity (deep vein thrombosis) 07/21/2019 Immunizations Name Administration Dates Next Due Hepatitis B > 19yrs 09/02/2010 Influenza Flu (PT Reported) 12/18/2015 PPD-RBMG 09/02/2010 Tdap 10/23/2011 Family History Medical History Relation Name Comments CA Breast Aunt p aunt 60s Arthritis Father 76 Cancer of the Prostate Father 76 Hypertension Father 76 prostate cancer Cancer of the Breast Father's side aunt Arthritis Mother CA Colon Negative Hx CA Ovarian Negative Hx Cancer of the Pancreas Negative Hx Uterine Cancer Negative Hx Relation Name Status Comments Aunt p [...] file Not on file Not on file Last Filed Vital Signs Vital Sign Reading Time Taken Comments Blood Pressure 110/76 01/23/2020 9:04 AM EST Pulse 84 01/23/2020 9:04 AM EST Temperature 36.4 ??C (97.6 ??F) 12/16/2019 8:32 AM ED T Respiratory Rate 12 12/16/2019 8:32 AM EDT Oxygen Saturation 95% 06/12/2018 9:41 AM EDT Inhaled Oxygen Concentration - - Weight 71.7 kg (158 lb) 01/23/2020 9:04 AM EST Height 160 cm (5' 3 ) 01/23/2020 9:04 AM EST Body Mass Index 27.99 01/23/2020 9:04 AM EST Plan of Treatment Health Maintenance Due Date Last Done Comments Covid-19 Vaccine (#1) 1965 SHINGLES VACCINE (1 of 2) 06/04/2013 BASELINE HEALTH EXAM 40-64 10/22/201310/22, 09/02/2010, 08/06/2007 CERVICAL CANCER SCREENING 06/12/20212018, 08/13/2015, 01/28/2013, Additional history exists DTAP/TDAP/TD (2 - Td or Tdap) 10/22/2021 10/23/2011 COLON CANCER SCREENING 09/17/2023 4 (External Completion), 09/16/2013, 10/01/2007 BMI CHECK/ADVISE 03/19/2024 01/23/2020, 11/2019, 12/26/2019, Additional history exists MAMMOGRAM 07/22/2024 07/23/2023, 06/18, 08/02/2021, Additional history exists INFLUENZA (Season Ended) 2024 017 (Refused), 12/18/2015 CHOLESTEROL SCREENING 01/13/2025 01/14/2020 , 09/16/2018, 01/02/2018, Additional history exists PNEUMOCOCCAL VACCINE FOR HIG H RISK PATIENTS (#1) 06/04/2028 HEPATITIS C SCREENING Completed 08/08/2016 Care Teams Deep Well Contractor Relationship Specialty Start Date End Date So Ellison MD PCP - General Internal Medicine 08/02/21
--- OUTSIDE RECORDS SUMMARY | 2024-07-16 13:03 | XMS_ITS | Encounter Summary ---
Author Organization [facility] Address [address] [place] [address] Care Team Providers Care Eastern Philosophy Professor Name Role Phone Melvina Ch MD Primary Care Provider [phone] Lyudmila Talley DO Primary Care Pro vider Unavailable So Ellison MD Primary Care Provider Unavaila ble Encounter Details Date Type Department Care Team Description 11/02/2011 Telephone Adult [address] [id number] Melvina Ch MD [address] [place] [address] Social History Tobacco Use Types Packs/Day Years Used Date Smoking Tobacco: Former Comments:Currently not smoki ng Alcohol Use Standard [...] on filedocumented in this encounter Care Teams Eastern Philosophy Professor Relationship Specialty Start Date End Date Melvina Ch MD [address] [place] [address] PCP - General Internal Medicine 02/28/11 06/01/13 Lyudmila Talley DO [address] [place] [address] PCP - General Internal Medicine 06/02/13 08/01/21 So Ellison MD [address] [place] [address] PCP - General Internal Medicine 08/02/21 documented as of this encounter
--- OUTSIDE RECORDS SUMMARY | 2024-07-16 13:03 | XMS_ITS | Encounter Summary ---
[facility] Address [address] [place] [address] Care Team Providers Care Human Resource Statistician Name Role Phone Lyudmila Talley DO Primary Care Pro vider Unavailable So Ellison MD Primary Care Provider Blair campo Encounter Details Date Type Department Care Team Description 08/09/2016 Orders Only Adult Medicine [address] [address] Lyudmila Talley DO Dyslipidemia (Primary Dx) Social History Tobacco Use Types [...] as of this encounter Visit Diagnoses Diagnosis Dyslipidemia- Primary Other and unspecified hyperlipidemia documented in this encounter Care Teams Human Resource Statistician Relationship Specialty Start Date End Date Lyudmila Talley DO PCP - General Internal Medicine 06/02/13 08/01/21 So Ellison MD PCP - General Internal Medicine 08/02/21 documented as of this encounter
--- OUTSIDE RECORDS SUMMARY | 2024-07-16 13:03 | XMS_ITS | Encounter Summary ---
[facility] Address [address] [place] [address] Care Team Providers Care Contracting Support Specialist Name Role Phone Lyudmila Talley DO Primary Care Pro vider Unavailable So Ellison MD Primary Care Provider Blair campo Encounter Details Date Type Department Care Team Description 10/21/2015 Erp Specialist Report Medical Records [address] [place] [address] Santiago Adamson MD Social History Tobacco Use Types Packs/Day [...] on filedocumented in this encounter Care Teams Contracting Support Specialist Relationship Specialty Start Date End Date Lyudmila Talley DO PCP - General Internal Medicine 06/02/13 08/01/21 So Ellison MD PCP - General Internal Medicine 08/02/21 documented as of this encounter
== END 2024-07-16 10:10 | disposition home or self-care (01) ==
LOC: HO.LAB 10:09
PROVIDERS: PCP Internal Medicine; Visit Provider Nurse Practitioner Family
DX: R10.11 Right upper quadrant pain (principal)
CPT/HCPCS: 36415; 82565; 84520

== ENCOUNTER 2024-07-16 10:09 | Outpatient (AMB) | payer OTHER, SELFPAY ==
[2024-07-16 10:25] VITALS: BP 116/66; PULSE 88; O2SAT 98; BMI 23.7
--- NOTE | 2024-07-16 10:25 | A.OFFVIS_ITS ---
Vital Signs 07/16/24 10:25 Height 5 ft 3 in Weight 134 lb BMI 23.7 BP 116/66 Blood Pressure Location Rt brachial Position Sitting Pulse 88 Pulse Source Pulse Oximeter Pulse Oximetry (%) 98 Oxygen Delivery Method Room Air Intake Visit Reasons: S/P [place] Intake Note: ESTABLISHED PATIENT for CIC, GERD, and hemorrhoid mgmt. S.P. colo Chief Complaint; Pt denies any GI sx or concerns at this time. Pt is here to review results only. Can Filling And Closing Machine Tender Required: No Accompanied by: Self / Same As Patient Allergies ciprofloxacin Allergy (Intermediate, Verified 07/16/24 10:33) Swelling lactose Allergy (Unknown, Verified 07/16/24 10:33) Unknown HPI HPI S/P [place]: Details: LAST VISIT: Rectal bleeding Postprandial abdominal bloating IBS (irritable bowel syndrome) Hemorrhoids without complication Plan Discussed with patient low FODMAP diet. List of food recommended as well as list of food to avoid given to patient. Patient has multiple bowel movements throughout the day. Kegel exercise examples given to patient. Patient reports to be very gassy and bloated. Discussed with patient avoiding certain food especially starchy food and bread. Patient will try [id number] fiber supplement with probiotics to help her bulk stools. Message sent to surgical schedulers to book procedure for patient. Patient describes rectal bleeding as blood on toilet paper when wiping after bowel movement. No actual blood seen in the stool. Script for Proctosol send. Patient will return in 2 months to discuss going for colonoscopy and going over the prep. She is agreeable to this plan and verbalizes understanding of instructions. She was given the opportunity to ask questions and all questions answered. ? Thank you for allowing me to participate in her care Medications New hydrocortisone 2.5% (Proctosol HC) 1 appl WI BID-QID PRN 30 grams 2RF hemorrhoids K64.9 COLONOSCOPY Findings: Terminal Ileum-normal swelling and inflammation around the ileocecal valve with some white slough and micro abscesses, bx taken Cecum:normal Ascending Colon: normal, random bx taken Transverse Colon - flat polyp 7-9 mm lifted with eleview and removed with cold snare Descending Colon:normal Sigmoid Colon: normal Rectum: Retroflexion with small internal hemorrhoids seen, grade I Anorectum - normal Intervention: eleview injection and cold snare, cold forceps bx Colon preparation: [place] Bowel Preparation Scale Right colon; 3 Transverse colon: 3 Left colon; 3 (0 = Unprepared colon segment with mucosa not seen due to solid stool that cannot be cleared. 1 = Portion of mucosa of the colon segment seen, but other areas of the colon segment not well seen due to staining, residual stool and/or opaque liquid. 2 = Minor amount of residual staining, small fragments of stool and/or opaque liquid, but mucosa of colon segment seen well. 3 = Entire mucosa of colon segment seen well with no residual staining, small fragments of stool or opaque liquid) Impression and Post Procedure Diagnosis: ileo cecal valve inflammation colon polyp internal hemorrhoids Plan: High fiber diet leaflet Avoid straining at stool, epsom salts and sitz bath, anusol supps or cream Repeat Colonoscopy in 5 years if pre cancerous polyp, otherwise 10 yrs or earlier if clinically indicated if concern for crohn then CTe PATHOLOGY RESULTS Diagnosis A. Colon, transverse, polyp: Consistent with hyperplastic polyp (see comment). B. Ileocecal valve, biopsy: Focal mild active ileal colitis; no granulomas or dysplasia (see comment). C. Colon, right, biopsy: Colonic mucosa with lymphoid aggregates and scattered pigmented lamina propria macrophages, otherwise no specific change; no colitis, granulomas or dysplasia. Comment: (A): A sessile serrated lesion cannot be excluded in any residual polyp and follow-up is warranted. (B): These findings may be due to drugs/NSAIDs, infection, bowel prep, or early inflammatory bowel disease, and clinical correlation is necessary TODAY'S VISIT: Patient is here today for follow-up and to discuss colonoscopy results. Patient denies any ill effects from the prep, anesthesia or procedure itself. Patient was found to have inflammation in ileocecal valve, biopsy showed focal mild active ileal colitis without granuloma or dysplasia. Patient reports that she is not taking any NSAIDs. She reports that she feels well when she follow FODMAP diet, however with she eats things like onions or other condom it is that they are on the high FODMAP list she will have abdominal bloating that will be very gassy. That is when patient will have a multiple bowel movements throughout the day. She has tried to take a fiber as much as she can. Recently patient has been under a lot of stress as she was moving to [place] to live with her daughter and son-in-law. Patient denies melena, hematochezia, unintentional weight loss or ribbon like stools. Patient denies dyspepsia, dysphagia or odynophagia PFS Medical History (Updated 07/16/24 @ 10:53 by Lisa Ye, [facility]) Ileitis Hyperlipidemia GERD (gastroesophageal reflux disease) Urinary retention with incomplete bladder emptying Urinary frequency Eczema Seronegative arthritis Osteoarthritis Bowel obstruction Surgical History Hx of shoulder surgery History of esophagogastroduodenoscopy (EGD) H/O colonoscopy History of appendectomy Family History Father Prostate cancer Mother Glaucoma Brother Tonsil cancer Social History Housing: House Are you a primary medicare specialist to a significant other at home: No Do you presently have visiting nurse or other home services: No Alcohol intake: never Patient Tobacco Use Status: Never used Tobacco e-Cigarette/Vaping Use: Never Used service: No Current occupational status: employed Cognitive needs: No Hearing needs: No Vision needs: No Review of Systems Const Denies weight gain and Denies weight loss ENT Reports no additional complaints, Denies dysphagia and Denies odynophagia Card Reports no additional complaints Resp Reports no additional complaints GI Denies abdominal pain, Denies belching, Denies melena, Reports bloating, Reports hematochezia, Denies change in bowel habits, Denies dysphagia, Denies excessive flatus, Denies dyspepsia, Denies heartburn, Denies diarrhea, Denies loose stools, Denies nausea, Denies odynophagia and Denies vomiting Reports no additional complaints Musc Reports no additional complaints Neuro Reports no additional complaints Psych Reports no additional complaints Endo Reports no additional complaints Physical Exam Vital Signs: Last Vital Signs Pulse 88 07/16/24 10:25 BP 116/66 07/16/24 10:25 Pulse Ox 98 07/16/24 10:25 Oxygen Delivery Method Room Air 07/16/24 10:25 BMI result Body Mass Index 23.7 Const General: healthy appearing, no acute distress and well developed Nutritional Appearance: well nourished Orientation/consciousness: patient oriented x3 Resp Effort & Inspection: normal respiratory effort, able to speak in complete sentences, no tracheal deviation and symmetric chest movement Auscultation: clear to auscultation bilaterally Cardio Rate: regular rate GI Inspection: Yes normal to inspection and No distended Palpation (GI): Soft to palpation, not firm, nontender and No hepatosplenomegaly present Auscultation: normal bowel sounds General: Yes no CVA tenderness Back/Spine/Pelvis Back: no CVA tenderness Skin General skin exam: elasticity normal, turgor normal and dry skin Neuro General: patient oriented x3 Psych Appearance: grossly normal Mental Status: mental status grossly normal Assessment & Plan Assessment & Plan (1) Ileitis: Code(s): K52.9 - Noninfective gastroenteritis and colitis, unspecified Category: Medical (2) Status post colonoscopy: Code(s): Z98.890 - Other specified postprocedural states (3) IBS (irritable bowel syndrome): Code(s): K58.9 - Irritable bowel syndrome, unspecified Qualifiers: Irritable bowel syndrome type: with both diarrhea and constipation Qualified Code(s): K58.2 - Mixed irritable bowel syndrome Plan Patient will continue low FODMAP diet. Ileitis found on colonoscopy confirmed by biopsy. Patient will be sent for CT enterography to rule out Crohn's. Will check fecal calprotectin. Patient currently is taking famotidine is feeling well for the most part. Her symptoms of acid reflux have been suppressed. Patient denies any nausea or vomiting. Otherwise reports to be feeling fairly well. She will continue low FODMAP diet as we discussed today. Follow-up in 6 months, sooner on as needed basis. She is agreeable to this plan and verbalizes understanding of instructions. She was given the opportunity to ask questions and all questions answered. Thank you for allowing me to participate in her care Orders: Orders CT enterography Today K52.9 - Noninfective gastroenteritis and colitis, unspecified Blood Urea Nitrogen Today R10.11 - Right upper quadrant pain Creatinine Today R10.11 - Right upper quadrant pain Calprotectin, Fecal Today K52.9 - Noninfective gastroenteritis and colitis, unspecified, R15.9 - Full incontinence of feces Coding Level of Care Code Est Pt Level 4 (51559) Complex EM visit Add On G2211 Diagnoses Ileitis K52.9 Status post colonoscopy Z98.890 Irritable bowel syndrome with both constipation and diarrhea K58.2 Irritable bowel syndrome type: with both diarrhea and constipation Time Spent (min) 35 Comment 25 minute spent with patient and additional 10 minutes spent reviewing her records
--- OUTSIDE RECORDS SUMMARY | 2024-07-16 11:14 | XMS_ITS | Clinical Summary ---
Author Organization [facility] it Address [address] [place] [address] Care Team Providers Care Air Traffic Systems Technician Name Role Phone So Ellison MD Primary Care Provider [phone] Surgical History Surgery Date Site/Laterality Comments APPENDECTOMY PROCEDURE: [place] APPENDECTOMY FLEXIBLE SIGMOIDOSCOPY 10/01/07 PROCEDURE: [place] SIGMOIDOSCOPY FLX DX W/COLLJ SPEC BR/WA IF PFRMD; COMMENT: normal BOWEL RESECTION 06/27 PROCEDURE: HISTORICAL BOWEL RESECTION; COMMENT: blockage, some intestine rmoved OTHER SURGICAL HISTORY 09/16/13 PROCEDURE: COLONOSCOPY, REMOVE LESION; COMMENT: [facility], tubular adenoma and hyperplastic polyp ABDOMINAL SURGERY 09/14/15 PROCEDURE: [place] UNLISTED PROCEDURE ABDOMEN PERITONEUM & OMENTUM BREAST BIOPSY PROCEDURE: BX BREAST; PERC NEEDLE CORE W/IMAG GUID; COMMENT: ?lt-cyst Medical History Medical History Date Comments Neuralgia, neuritis, and rad iculitis, unspecified 06/08/2006 DX:Neuralgia, neuritis, and radiculitis, unspecified 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 Subserosal leiomyoma of uterus 09/09/2010 D X:Subserosal leiomyoma of uterus SBO (small bowel obstruction ) (CMS/HCC V24, CMS/HCC V28) DX:SBO (small bowel obstruct ion) ([facility]); COMMENT: partial Lyme disease DX:Lyme disease Family History Medical History Relation Name Comments Breast cancer Aunt p aunt 60s Arthritis Father 76 Hypertension Father 76 prostate cancer Prostate cancer Father 76 Breast cancer Father's side aunt Arthritis Mother Colon cancer Neg Hx Ovarian cancer Neg Hx Pancreatic cancer Neg Hx Uterine cancer Neg Hx Relation Name Status Comments Aunt p aunt 60s Father 76 Father's side Mother Social History Tobacco Use Types Packs/Day Years Used Date Smoking Tobacco: Former Cigarettes Q uit: 12/21/1983 Smokeless Tobacco: Never Alcohol Use Standard Drinks/Week Comments No 0 (1 standard drink = 0.6 oz pur e alcohol) Comments Unknown Sex and Gender Information Value Date Recorded Sex Assigned at Not on file Legal Sex Female 2:42 AM EST Gender Identity Not on file Sexual Orientation Not on file Obstetrics History Plan of Treatment Upcoming Encounters Date Type Department Care Team (Late st Contact Info) Description 08/01/2024 8:00 AM EDT Appointment Radiology Department [address] [address] Health Maintenance Due Date Last Done Comments COVID-19 Vaccine (#1) 06[birth year]04/1970 Hepatitis B Vaccines (2 of 3 - 19+ 3-dose series) 09/30/2010 09/02/2010 Pneumococcal Vaccine: 50+ Years (1 of 1 - PCV) 06/04/2013 Zoster Vaccines (1 of 2) 06/04/2013 Cervical Cancer Screening: Pap Smear 06/12/2021 06/12/2018 DTaP,Tdap,and Td Vaccines (2 - Td or Tdap) 10/22/2021 10/23/2011 Colorectal Cancer Screening: Colonoscopy 02/25/2022 Depression Screening 02/25/2022 HIV Screening 02/25/2022 Hepatitis C Screening 02/25/2022 Social Influencers of Health Screening 02/25/2022 RSV Immunization Adult Patients (1 - Risk 60-74 years 1-dose series) 2023 Influenza Vaccine (Season Ended) 2024 Breast Cancer Screening 07/22/2025 07/23/19 24, 07/23/2023, 07/13/2022, Additional history exists HIB Vaccines Aged Out No longer eligi ble based on patient's age to complete this topic HPV Vaccines Aged Out No longer eligi ble based on patient's age to complete this topic Hepatitis A Vaccines Aged Out No long er eligible based on patient's age to complete this topic IPV Vaccines Aged Out No longer eligi ble based on patient's age to complete this topic MMR Vaccines Aged Out No longer eligi ble based on patient's age to complete this topic Meningococcal ACWY Vaccine Aged Out N o longer eligible based on patient's age to complete this topic Meningococcal B Vaccine Aged Out No l onger eligible based on patient's age to complete this topic Pneumococcal Vaccine: Pediatrics (0 to 5 Years) and At-Risk Patients (6 to 64 Years) Aged Out No longer eligible based on patient's age to complete this topic RSV Immunization Patients Under 20 months Aged Out No longer eligible based on patient's age to complete this topic Varicella Vaccines Aged Out No longer eligible based on patient's age to complete this topic Procedures Procedure Name Priority Date/Time Associated Diagnosis Comments SCREENING MAMMOGRAPHY BI 2-VIEW BREAST INC CAD Routine 07/23/2023 8:23 AM EDT Encounter for screening mammogram for malignant neoplasm of breast PAP SMEAR Routine 06/12/2018 from Last 3 Months or Most Recently Relevant to Health Maintenance Results * SCREENING MAMMOGRAPHY BI 2-VIEW BREAST INC CAD (07/23/2023 8:23 AM EDT) Anatomical Region Laterality Modality Radiographic Odalys ging 07/13/2022 8:10 AM EDT Narrative 07/23/2023 2:19 PM EDT This is a summary report. The complete report is available in the patient's medical record. If you cannot access the medical record, please contact the sending organization for a detailed fax or copy. Full field digital screening 2D C views and tomosynthesis mammography, reviewed with CAD and compared to previous. The breasts are composed of fatty and fibroglandular tissue. ??No suspicious mass, architectural distortion or suspicious calcifications are identified. IMPRESSION: : No mammographic evidence of malignancy. BIRADS 1-Negative; N. 5 year breast cancer risk assessment 1.8 % Lifetime breast cancer risk assessment 9.3 % Breast cancer risk category Low (<15%) Procedure Note Kemi Lopez MD - 11/05/2023 This is a summary report. The complete report is available in thepatient's medical record. If you cannot access the medical record, pleasecontact the sending organization for a detailed fax or copy. Full field digital screening 2D C views and tomosynthesis mammography,reviewed with CAD and compared to previous. The breasts are composed offatty and fibroglandular tissue. No suspicious mass, architecturaldistortion or suspicious calcifications are identified. IMPRESSION: : No mammographic evidence of malignancy. BIRADS 1-Negative; N. 5 year breast cancer risk assessment 1.8 % Lifetime breast cancer risk assessment 9.3 % Breast cancer risk category Low (<15%) So Ellison MD IMG XR PROCEDURES Final Result * Pap smear (06/12/2018) 06/12/2018 Narrative HISTORICAL TESTING LAB RESULTING AGENCY - 06/14/2018 4:28 PM EDT [id number] THINPREP PAP, IMAGED: NEGATIVE FOR SQUAMOUS INTRAEPITHELIAL LESION AND MALIGNANCY . ATROPHY. KHANH MALLOY , ROBSON(ASCP) (CASE ELECTRONICALLY SIGNED 06 14 2018) RESULT OF APTIMA HIGH RISK HPV ASSAY: HIGH RISK HPV: ??NEGATIVE (SEROTYPES 16,18,31,33,35,39,45,51,52,56,58,59,66,68) COMPLETED ON 2018-06-14 ADEQUACY: SATISFACTORY ENDOCERVICAL/TRANSFORMATION ZONE COMPONENT PRESENT. SOURCE: THINPREP PAP HPV ANY DX: ??REFLEX 16 AND 18, CERVICAL, IMAGED CLINICAL INFORMATION: HPV ANY DIAGNOSIS. Z12.4 us Sharlene De La Rosa MD LAB CYTOLOGY ORDERABLES Fin al Result HISTORICAL TESTING LAB RESULTING AGENCY from Last 3 Months or Most Recently Relevant to Health Maintenance Care Teams Air Traffic Systems Technician Relationship Specialty Start Date End Date So Ellison MD PCP - General Internal Medicine 08/02/21
--- OUTSIDE RECORDS SUMMARY | 2024-07-16 11:15 | XMS_ITS | Clinical Summary ---
Author Organization [facility] Address [address] [place] [address] Care Team Providers Care Directional Drill Operator Name Role Phone So Ellison MD Primary Care Provider [phone] Allergies Active Allergy Reactions Criticality Noted Date Comments Ciprofloxacin Swelling Medium 11/16/2023 Medications ascorbic acid (VITAMIN C) 500 MG Tab CR Take 1 tablet (500 mg total) by mouth daily. Active calcium carbonate-vitami n D (CALTRATE+D) 600 mg-10 mcg tablet Take 1 tablet by mouth every morning with breakfast. Active folic acid (FOLVITE) 1 MG tablet Take 1 tablet (1 mg total) by mouth daily. 4 Active lidocaine (LIDODERM) 5 % patch Place 1 patch on the skin daily as needed. 4 Active meloxicam (MOBIC) 15 MG tablet Take 1 tablet (15 mg total) by mouth daily as needed. 4 Active methoTREXate (RHEUMATREX) 2.5 mg tablet Take 4 tablets (10 mg total) by mouth once a week 4 Active Multiple Vitamins-Mineral s (Multivitamin Adult, Minerals,) Tab Take by mouth daily. Active triamcinolone (KENALOG) 0.1 % lotion Apply 1 Application topically daily. Active glucosamine chondroitin complex (OSTEO BI-FLEX) Tab tablet Take 1 tablet by mouth daily. Active OMEprazole (PriLOSEC OTC) 20 MG tablet Take 1 tablet (20 mg total) by mouth daily as needed. Active amoxicillin (AMOXIL) 500 MG capsule Take 1 capsule (500 mg total) by mouth 3 (three) times a day. 4 Active ibuprofen (MOTRIN) 800 mg tablet Take 1 tablet (800 mg total) by mouth See Admin Instructions. EVERY 4 TO 6 HOURS NEEDED. 4 Active ondansetron (ZOFRAN) 4 MG tablet 1 TABLET EVERY 4 TO 6 HOURS NEEDED FOR NAUSEA Active famotidine (PEPCID) 20 MG tabletIndication s:Gastroesophage al reflux disease without esophagitis,Pain in throat TAKE 1 TABLET BY MOUTH TWICE A DAY 180 tablet 1 4 Active Active Problems Problem Noted Date Diagnosed Date Heartburn 11/26/2023 Assessment & Plan (11/26/2023 9:51 AM EDT): Well-controlled and managed with medication. Continue current medication regimen as prescribed. Continue plan as previously directed by your provider. Overweight (BMI 25.0-29.9) 11/26/2023 Assessment & Plan (11/26/2023 9:51 AM EDT): BMI: . Diet, exercise and lifestyle modifications. DVT (deep venous thrombosis) 03/19/2015 Overview (11/26/2023): With Picc Line Family History Medical History Relation Name Comments Prostate cancer Father No Known Problems Mother Relation Name Status Comments Father Mother Alive Social History Tobacco Use Types Packs/Day Years Used Date Smoking Tobacco: Never Smokeless Tobacco: Never Tobacco Cessation:Counseling Given: Not Answered Alcohol Use Standard Drinks/Week Comments Yes 0 (1 standard drink = 0.6 oz pur e alcohol) Special Occassions AUDIT-C Answer Date Recorded Q1: How often do you have a drink containing alc ohol? Monthly or less 11/16/2023 Q2: How many drinks containi ng alcohol do you have on a typical day when you are drinking? 1 or 2 11/16/2023 Q3: How often do you have si x or more drinks on one occasion? Never 11/16/2023 Comments Unknown Sex and Gender Information Value Date Recorded Sex Assigned at Female 10/31/2023 11:34 AM EDT Legal Sex Female 11:25 AM EDT Gender Identity Female 10/31/2023 11:34 AM EDT Sexual Orientation Heterosexual (straight) 10/30 11:34 AM EDT Last Filed Vital Signs Vital Sign Reading Time Taken Comments Blood Pressure 117/73 12/14/2023 10:00 AM EDT Pulse 74 12/14/2023 10:00 AM EDT Temperature 36.1 ??C (97 ??F) 12/14/2023 8:58 AM EDT Respiratory Rate 15 12/14/2023 10:00 AM EDT Oxygen Saturation 98% 12/14/2023 10:00 AM EDT Inhaled Oxygen Concentration - - Weight 66.2 kg (146 lb) 02/06/2024 10:14 AM EST Height 160 cm (5' 3 ) 02/06/2024 10:14 AM EST Body Mass Index 25.86 02/06/2024 10:14 AM EST Plan of Treatment Upcoming Encounters Date Type Department Care Team (Late st Contact Info) Description 07/30/2024 11:45 AM EDT Office Visit [facility] [place] [address] [place] [address] Beverly Starks PA-C [address] [place] [address] Health Maintenance Due Date Last Done Comments Hepatitis C Virus Screening 1965 HIV Screening 06/04/1976 DTaP/Tdap/Td Vaccines (1 - Tdap) 06/04/1982 Pneumococcal Vaccines 50+ (1 of 2 - PCV) 06/04/1982 Zoster (Shingles) Vaccine (1 of 2) 06/04/1982 Pap Smear (Ages 21-65) 06/04/1984 Mammogram 2003 Colonoscopy 06/04/2008 COVID-19 Vaccine (2 - Pfizer risk series) 04/27/2020 04/06/2020 RSV Vaccine 60 years and old er and Patients (1 - Risk 60-74 years 1-dose series) 2023 Influenza Vaccine 10/18/2023 Hepatitis B Vaccines Aged Out No long er eligible based on patient's age to complete this topic Insurance Advance Directives * Full Code (Latest Code Status on File) Date Activated Date Inactivated Comments 12/14/2023 5:50 AM Care Teams Directional Drill Operator Relationship Specialty Start Date End Date So Ellison MD [address] [place] [id number] PCP - General 10/31/23
== END 2024-07-16 10:59 | disposition home or self-care (01) ==
LOC: HO.HGI 10:10
PROVIDERS: PCP Internal Medicine; Visit Provider Nurse Practitioner Family
DX: K58.2 Mixed irritable bowel syndrome (principal); K63.5 Polyp of colon
CPT/HCPCS: 99214

== ENCOUNTER 2024-07-17 09:23 | Outpatient (REF) | payer OTHER, SELFPAY ==
--- OUTSIDE RECORDS SUMMARY | 2024-07-17 10:14 | XMS_ITS | Encounter Summary ---
Author Organization [facility] Address [address] [place] [address] Care Team Providers Care Video Tape Transferrer Name Role Phone Lyudmila Talley DO Primary Care Pro vider So Villagran MD Primary Care Provider Blair campo Encounter Details Date Type Department Care Team Description 06/09/2013 Orders Only Adult Medicine [address] [address] Lyudmila Talley DO Dyslipidemia (Primary Dx); Neuralgia, neuritis, and radiculitis, unspecified Social History Tobacco Use Types Packs/Day Years [...] as of this encounter Plan of Treatment Scheduled Orders Name Type Priority Associated Diagnoses Orde r Schedule LIPID PROFILE Lab Routine Dyslipidemia Neuralgia, neuritis, and radiculitis, unspecified Expected: 06/09/2013, Expires: 06/09/2014 TRANSAMINASE (SGOT)(AST) UV- Lab Routine Dyslipidemia Neuralgia, neuritis, and radiculitis, unspecified Expected: 06/09/2013, Expires: 06/09/2014 TRANSAMINASE (SGPT)(ALT) UV- Lab Routine Dyslipidemia Neuralgia, neuritis, and radiculitis, unspecified Expected: 06/09/2013, Expires: 06/09/2014 BASIC METABOLIC PANEL Lab Routine Dyslipidemia Neuralgia, neuritis, and radiculitis, unspecified Expected: 06/09/2013, Expires: 06/09/2014 documented as of this encounter Results * URINALYSIS, COMPLETE (06/11/2013 8:06 AM EDT) SPECIFIC GRAVITY, URINE 1.015 1.005 - 1.030 06/11/2013 9:17 AM [facility] PH, URINE 5.5 5 - 8 [facility] PROTEIN, URINE NEGATIVE <=TRACE mg/dL 06/11/2013 9:17 AM [facility] GLUCOSE, URINE (UA) NEGATIVE NEGATIVE mg/dL 06/11/2013 9:17 AM [facility] KETONE, URINE NEGATIVE NEGATIVE mg/dL 06/11/2013 9:17 AM [facility] BILIRUBIN URINE NEGATIVE NEGATIVE 06/11/2013 9:17 AM [facility] UROBILINOGEN, URINE 0.2 0.2 - 1.0 E.U./dL 06/11/2013 9:17 AM [facility] BLOOD, URINE NEGATIVE NEGATIVE 06/11/2013 9:17 AM [facility] NITRITE,URINE NEGATIVE NEGATIVE 06/11/2013 9:17 AM [facility] LEUKOCYTE ESTERASE, URINE NEGATIVE NEGATIVE 06/11/2013 9:17 AM [facility] RBC-Urine NONE 0 - 4 /hpf 06/11/2013 11:20 AM [facility] WBC, URINE NONE 0 - 4 /hpf 06/11/2013 11:20 AM [facility] EPITHELIAL CELLS URINE 1-3 SQUA 0 - 60 06/11/2013 11:20 AM [facility] 06/11/2013 8:06 AM EDT 06/11/2013 8:07 AM EDT Lyudmila Shelby DO LAB [facility] [address] [place] [address] * VITAMIN B-12, ASSAY (06/11/2013 8:06 AM EDT) Pathologist [facility] VITAMIN B12 371 211 - 946 pg/mL 06/11/2013 11:[address] [facility] 06/11/2013 8:06 AM EDT 06/11/2013 8:07 AM EDT Lyudmila Bojorquez Colasacco DO LAB Performing Organization Address [facility] de Phone Number [address] * (ABNORMAL) 25 HYDROXY INCLUDES FRACTIONS IF PERFORMED (06/11/2013 8:06 AM EDT) [facility] 25-HYDROXY VITAMIN D TOTAL 24(L) 30 - 80 ng/ml 06/11/2013 12:[address] [facility] Comment: Vitamin D Reference Ranges ??Deficiency: ? <20 ng/mL ??Insufficiency: ?20-29 ng/mL ??Optimal: ?30-80 ng/mL ??High: ? >80 ng/mL 06/11/2013 8:06 AM EDT 06/11/2013 8:07 AM EDT Lyudmila Bojorquez Colasacco DO LAB Performing Organization Address City/[facility] Co de Phone Number [address] * TSH (06/11/2013 8:06 AM EDT) Pathologist [facility] [place] TSH 0.62 0.40 - 4.00 mIU/ml 06/11/2013 11:[address] [facility] 06/11/2013 8:06 AM EDT 06/11/2013 8:07 AM EDT Lyudmila Bojorquez Colasacco DO LAB [facility] [address] [facility] * CBC (AUTO DIFF PLATELET) (06/11/2013 8:06 AM EDT) WBC 5.1 4.8 - 10.8 x10-3 06/11/2013 8:38 AM EDT [facility] RBC 4.8 3.8 - 4.8 x10-6 06/11/2013 8:38 AM EDT [facility] HGB 13.4 11.5 - 16.0 g/dl 06/11/2013 8:38 AM EDT [facility] HCT 40.4 35 - 47 % 06/11/2013 8:38 AM EDT [facility] MCV 84.3 79 - 98 fl 06/11/2013 8:38 AM EDT [facility] MCH 28.0 27 - 32 pg 06/11/2013 8:38 AM EDT [facility] MCHC 33.2 32 - 37 g/dl 06/11/2013 8:38 AM EDT [facility] RDW 12.4 11 - 15 % 06/11/2013 8:38 AM EDT [facility] PLT COUNT 205 130 - 400 x10-3 06/11/2013 8:38 AM EDT [facility] MEAN PLATELET VOLUME 10.5 7 - 11 fl 06/11/2013 8:38 AM EDT [facility] NEUT % 67.8 41 - 85 % 06/11/2013 8:38 AM EDT [facility] LYMPH % 21.7 15 - 48 % 06/11/2013 8:38 AM EDT [facility] MONO % 8.7 0 - 12 % 06/11/2013 8:38 AM EDT [facility] EOS % 1.2 0 - 5 % 06/11/2013 8:38 AM EDT [facility] BASO % 0.6 0 - 2 % 06/11/2013 8:38 AM EDT [facility] 06/11/2013 8:06 AM EDT 06/11/2013 8:07 AM EDT Lyudmila Shelby DO LAB [facility] [address] [facility] documented in this encounter Visit Diagnoses Diagnosis Dyslipidemia- Primary Other and unspecified hyperlipidemia Neuralgia, neuritis, and radiculitis, unspecified Dyslipidemia Other and unspecified hyperlipidemia Neuralgia, neuritis, and radiculitis, unspecified documented in this encounter Care Teams Video Tape Transferrer Relationship Specialty Start Date End Date Lyudmila Talley DO PCP - General Internal Medicine 06/02/13 08/01/21 So Ellison MD PCP - General Internal Medicine 08/02/21 documented as of this encounter
--- OUTSIDE RECORDS SUMMARY | 2024-07-17 10:14 | XMS_ITS | Clinical Summary ---
[facility] Address [address] [place] [address] Care Team Providers Care Hide Inspector And Sorter Name Role Phone So Ellison MD Primary Care Provider Unavaila [...] HEPATITIS C SCREENING Completed 08/08/2016 Care Teams Hide Inspector And Sorter Relationship Specialty Start Date End Date So Ellison MD PCP - General Internal Medicine 08/02/21
--- OUTSIDE RECORDS SUMMARY | 2024-07-17 10:14 | XMS_ITS | Encounter Summary ---
Author Organization [facility] Address [address] [place] [address] Care Team Providers Care Senior Payroll Administrator Name Role Phone Lyudmila Talley DO Primary Care Pro vider Unavailable So Ellison MD Primary Care Provider Unavaila ble Reason for Referral * Non STEPH (Priority) - Authorized/Booked Specialty Diagnoses / Procedures Referred By Amado vinson Referred To Contact Dermatology Procedures REFERRAL TO DERMATOLOGY Lyudmila Talley DO [address] [place] [address] Derm/[place] [address] [place] [address] Referral ID Status Reason Start Date Expiration Date V isits Requested Visits Authorized [id number] Authorized/B ooked 02/19/2018 02/19/2019 1 1 Encounter Details Date Type Department Care Team Description 02/19/2018 Orders Only Adult Medicine [address] [address] Lyudmila Talley DO Social History Tobacco Use Types Packs/Day Years [...] on filedocumented in this encounter Care Teams Senior Payroll Administrator Relationship Specialty Start Date End Date Lyudmila Talley DO PCP - General Internal Medicine 06/02/13 08/01/21 So Ellison MD PCP - General Internal Medicine 08/02/21 documented as of this encounter
--- OUTSIDE RECORDS SUMMARY | 2024-07-17 10:14 | XMS_ITS | Encounter Summary ---
Author [facility] Address [address] [place] [address] Care Team Providers Care Hydrogen Cell Tender Name Role Phone Lyudmila Talley DO Primary Care Pro vider Unavailable So Ellison MD Primary Care Provider Blair campo Encounter Details Date Type Department Care Team Description 04/10/2019 Concrete Pavement Installer Report Medical Records [address] [place] [address] Carol Lu MD Social History Tobacco Use [...] on filedocumented in this encounter Care Teams Hydrogen Cell Tender Relationship Specialty Start Date End Date Lyudmila Talley DO PCP - General Internal Medicine 06/02/13 08/01/21 So Ellison MD PCP - General Internal Medicine 08/02/21 documented as of this encounter
--- OUTSIDE RECORDS SUMMARY | 2024-07-17 10:14 | XMS_ITS | Encounter Summary ---
Author Organization [facility] Address [address] [place] [address] Care Team Providers Care Electrical Intern Name Role Phone Melvina Ch MD Primary Care Provider [phone] Lyudmila Talley DO Primary Care Pro vider Unavailable So Ellison MD Primary Care Provider Unavaila ble Encounter Details Date Type Department Care Team Description 12/06/2011 Release of Information Medical Records [address] [place] [address] Abstract, Provider Social History Tobacco Use Types [...] filedocumented in this encounter Care Teams Electrical Intern Relationship Specialty Start Date End Date Melvina Ch MD [address] [place] [address] PCP - General Internal Medicine 02/28/11 06/01/13 Lyudmila Talley DO [address] [place] [address] PCP - General Internal Medicine 06/02/13 08/01/21 So Ellison MD [address] [place], [place] [id number] PCP - General Internal Medicine 08/02/21 documented as of this encounter
--- OUTSIDE RECORDS SUMMARY | 2024-07-17 10:14 | XMS_ITS | Encounter Summary ---
Author Organization [facility] Address [address] [place] [address] Care Team Providers Care Centralized Traffic Control Operator Name Role Phone Lyudmila Talley DO Primary Care Pro vider Unavailable So Ellison MD Primary Care Provider Unavaila ble Reason for Visit * Reason Onset Date Comments Provider Call Back 08/06/2013 Encounter Details Date Type Department Care Team Description 08/06/2013 Telephone Adult Medicine [address] [address] Lyudmila Talley DO Provider Call Back Social History Tobacco Use Types Packs/Day Years [...] encounter Miscellaneous Notes * Telephone Encounter - Lyudmila Shelby DO - 08/07/2013 5:27 PM EDT Lm on vm if pain resolved adn no concerns can put off study. If recurs should call back * Telephone Encounter - Denice Bocanegra - 08/06/2013 9:01 AM EDT Caller requesting call back from provider:Lyudmila Gerardo Is the caller the patient? YES If caller is not the patient, what is the callers name? N/A Callers relationship to patient? N/A If person calling is not the patient themselves, is there a verbal release in FYI or permanent comments for this person: YES Reason for call back: She is concerned about a letter she received for refusing to go to cardiologyfor a pain near rib cage at last visit, she states that it was actually caused from her small intestines having a blockage and she doesn't feel it is necessary for her to see cardi, she also states that she is taking protonix for acid reflux and it has taken away the feeling she had with her visit with you. Patient was seen by [facility] Dr. Rosaline Loco, and also Dolores Vaz RN. 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 Please give pt a call. She has been pressured by Cardi to book,.thank you,. Caller offered to speak with the nurse for assistance: YES Response: Patient offered to speak with nurse for assistance and patient agreed. Message forwarded to nurse. documented in this encounter Plan of Treatment Not on file documented as of this encounter Visit Diagnoses Not on filedocumented in this encounter Care Teams Centralized Traffic Control Operator Relationship Specialty Start Date End Date Lyudmila Talley DO PCP - General Internal Medicine 06/02/13 08/01/21 So Ellison MD PCP - General Internal Medicine 08/02/21 documented as of this encounter
--- OUTSIDE RECORDS SUMMARY | 2024-07-17 10:14 | XMS_ITS | Encounter Summary ---
Author Organization [facility] Address [address] [place] [address] Care Team Providers Care Board Of Directors Name Role Phone Melvina Ch MD Primary Care Provider [phone] Lyudmila Talley DO Primary Care Pro vider Unavailable So Ellison MD Primary Care Provider Unavaila ble Reason for Referral * - Authorized/Booked Specialty Diagnoses / Procedures Referred By Amado vinson Referred To Contact General Surgery Diagnoses Abnormal mammogram with microcalcification Procedures REFERRAL TO GENERAL SURGERY Rylan Mckinney MD [address] [address] Sergio Morales MD Referral ID Status Reason Start Date Expiration Date V isits Requested Visits Authorized NOT REQUIRED Authorized/ Booked 12/14/2011 12/13/2012 1 1 Encounter Details Date Type Department Care Team Description 12/14/2011 Orders Only Mammography - [address] [address] Rylan Mckinney MD Abnormal mammogram with microcalcification (Primary Dx) Social History Tobacco Use Types [...] as of this encounter Visit Diagnoses Diagnosis Abnormal mammogram with microcalcification- Primary Mammographic microcalcification documented in this encounter Care Teams Board Of Directors Relationship Specialty Start Date End Date Melvina Ch MD [address] [place] [address] PCP - General Internal Medicine 02/28/11 06/01/13 Lyudmila Talley DO [address] [place] [address] PCP - General Internal Medicine 06/02/13 08/01/21 So Ellison MD [address] [place] [address] PCP - General Internal Medicine 08/02/21 documented as of this encounter
--- OUTSIDE RECORDS SUMMARY | 2024-07-17 10:14 | XMS_ITS | Clinical Summary ---
Author Organization [facility] Address [address] [place] [address] Care Team Providers Care Medieval English Literature Professor Name Role Phone So Ellison MD Primary Care Provider [phone] Surgical History Surgery Date Site/Laterality Comments APPENDECTOMY PROCEDURE: [facility] APPENDECTOMY FLEXIBLE SIGMOIDOSCOPY 10/01/07 PROCEDURE: [facility] SIGMOIDOSCOPY FLX DX W/COLLJ SPEC BR/WA IF PFRMD; COMMENT: normal BOWEL RESECTION 06/27 PROCEDURE: HISTORICAL BOWEL RESECTION; COMMENT: blockage, some intestine rmoved OTHER SURGICAL HISTORY 09/16/13 PROCEDURE: COLONOSCOPY, REMOVE LESION; COMMENT: [facility], tubular adenoma and hyperplastic polyp ABDOMINAL SURGERY 09/14/15 PROCEDURE: [facility] UNLISTED PROCEDURE ABDOMEN PERITONEUM & OMENTUM BREAST [...] CMS/HCC V28) DX:SBO (small bowel obstruct ion) ([facility]); COMMENT: partial Lyme disease DX:Lyme disease Family [...] 08/01/2024 8:00 AM EDT Appointment Radiology Department [address] [address] Health Maintenance Due Date Last Done Comments [...] RESULTING AGENCY - 06/14/2018 4:28 PM EDT [id number] THINPREP PAP, IMAGED: NEGATIVE FOR SQUAMOUS INTRAEPITHELIAL [...] Recently Relevant to Health Maintenance Care Teams Medieval English Literature Professor Relationship Specialty Start Date End Date So Ellison MD PCP - General Internal Medicine 08/02/21
--- OUTSIDE RECORDS SUMMARY | 2024-07-17 10:14 | XMS_ITS | Encounter Summary ---
Author Organization [facility] Address [address] [place] [address] Care Team Providers Care Rn Cvor Name Role Phone Lyudmila Talley DO Primary Care Pro vider Unavailable So Ellison MD Primary Care Provider Blair campo Encounter Details Date Type Department Care Team Description 08/09/2016 Orders Only Adult Medicine [address] [address] Lyudmila Talley DO Dyslipidemia (Primary Dx) Social [...] hyperlipidemia documented in this encounter Care Teams Rn Cvor Relationship Specialty Start Date End Date Lyudmila Talley DO PCP - General Internal Medicine 06/02/13 08/01/21 So Ellison MD PCP - General Internal Medicine 08/02/21 documented as of this encounter
--- OUTSIDE RECORDS SUMMARY | 2024-07-17 10:14 | XMS_ITS | Encounter Summary ---
Author Organization [facility] Address [address] [place] [address] Care Team Providers Care Javascript Software Engineer Name Role Phone Lyudmila Talley DO Primary Care Pro vider Unavailable So Ellison MD Primary Care Provider Blair campo Encounter Details Date Type Department Care Team Description 05/17/2019 Walk In Clinic Visit Medical Records [address] [place] [address] Clinic, [facility] Walk-In [address] [place] [address] Social History Tobacco Use Types Packs/Day Years [...] on filedocumented in this encounter Care Teams Javascript Software Engineer Relationship Specialty Start Date End Date Lyudmila Talley DO PCP - General Internal Medicine 06/02/13 08/01/21 So Ellison MD PCP - General Internal Medicine 08/02/21 documented as of this encounter
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
--- OUTSIDE RECORDS SUMMARY | 2024-07-17 10:14 | XMS_ITS | Encounter Summary ---
Author [facility] Address [address] [place] [address] Care Team Providers Care Pedal Assembler Name Role Phone Lyudmila Talley DO Primary Care Pro vider Unavailable So Ellison MD Primary Care Provider Blair campo Encounter Details Date Type Department Care Team Description 10/01/2014 Release of Information Medical Records [address] [place] [address] Abstract, Provider Social History Tobacco Use Types [...] on filedocumented in this encounter Care Teams Pedal Assembler Relationship Specialty Start Date End Date Lyudmila Talley DO PCP - General Internal Medicine 06/02/13 08/01/21 So Ellison MD PCP - General Internal Medicine 08/02/21 documented as of this encounter
--- OUTSIDE RECORDS SUMMARY | 2024-07-17 10:14 | XMS_ITS | Encounter Summary ---
Author Organization [facility] Address [address] [place] [address] Care Team Providers Care Turbine Engine Assembler Name Role Phone Lyudmila Talley DO Primary Care Pro vider Unavailable So Ellison MD Primary Care Provider Blair campo Encounter Details Date Type Department Care Team Description 06/30/2014 Orders Only Adult Medicine [address] [address] Lyudmila Talley DO Knee pain, left (Primary [...] leg documented in this encounter Care Teams Turbine Engine Assembler Relationship Specialty Start Date End Date Lyudmila Talley DO PCP - General Internal Medicine 06/02/13 08/01/21 So Ellison MD PCP - General Internal Medicine 08/02/21 documented as of this encounter
--- OUTSIDE RECORDS SUMMARY | 2024-07-17 10:14 | XMS_ITS | Encounter Summary ---
Author Organization [facility] Address [address] [place] [address] Care Team Providers Care Instructor Robotics Name Role Phone Melvina Ch MD Primary Care Provider [phone] Lyudmila Talely DO Primary Care Pro vider Unavailable So Ellison MD Primary Care Provider Unavaila ble Encounter Details Date Type Department Care Team Description 04/14/2013 Telephone Adult [address] [phone] Melvina Ch MD [address] [place] [address] Social History Tobacco Use Types Packs/Day [...] on filedocumented in this encounter Care Teams Instructor Robotics Relationship Specialty Start Date End Date Melvina Ch MD [address] [place] [phone] PCP - General Internal Medicine 02/28/11 06/01/13 Lyudmila Talley DO [address] [place] [address] PCP - General Internal Medicine 06/02/13 08/01/21 So Ellison MD [address] [place] [address] PCP - General Internal Medicine 08/02/21 documented as of this encounter
--- OUTSIDE RECORDS SUMMARY | 2024-07-17 10:14 | XMS_ITS | Clinical Summary ---
Author Organization [facility] Address [address] [place] [address] Care Team Providers Care Passenger Attendant Name Role Phone So Ellison MD Primary Care Provider [phone] Allergies Active Allergy Reactions Criticality Noted Date [...] Description 07/30/2024 11:45 AM EDT Office Visit [facility] [place] [address] [place] [address] Beverly Starks PA-C [address] [place] [address] Health Maintenance Due Date Last [...] Inactivated Comments 12/14/2023 5:50 AM Care Teams Passenger Attendant Relationship Specialty Start Date End Date So Ellison MD [address] [place] [address] PCP - General 10/31/23
--- OUTSIDE RECORDS SUMMARY | 2024-07-17 10:14 | XMS_ITS | Encounter Summary ---
Author Organization [facility] Address [address] [place] [address] Care Team Providers Care Head Chef Name Role Phone Lydumila Talley DO Primary Care Pro vider Unavailable So Ellison MD Primary Care Provider Blair campo Encounter Details Date Type Department Care Team Description 10/15/2018 B2B Sales Professional Report Medical Records [address] [place] [address] Abstract, Provider Social History Tobacco Use Types [...] on filedocumented in this encounter Care Teams Head Chef Relationship Specialty Start Date End Date Lyudmila Talley DO PCP - General Internal Medicine 06/02/13 08/01/21 So Ellison MD PCP - General Internal Medicine 08/02/21 documented as of this encounter
--- OUTSIDE RECORDS SUMMARY | 2024-07-17 10:14 | XMS_ITS | Encounter Summary ---
Author Organization [facility] Address [address] [place] [address] Care Team Providers Care Line Server Name Role Phone Lyudmila Talley DO Primary Care Pro vider Unavailable So Ellison MD Primary Care Provider Blair campo Encounter Details Date Type Department Care Team Description 05/24/2018 Gas Desulfurizer Report Medical Records [address] [place] [id number] Carol Lu MD Social History Tobacco Use [...] on filedocumented in this encounter Care Teams Line Server Relationship Specialty Start Date End Date Lyudmila Talley DO PCP - General Internal Medicine 06/02/13 08/01/21 So Ellison MD PCP - General Internal Medicine 08/02/21 documented as of this encounter
--- OUTSIDE RECORDS SUMMARY | 2024-07-17 10:14 | XMS_ITS | Encounter Summary ---
Author Organization [facility] Address [address] [place] [address] Care Team Providers Care College Professor Name Role Phone Melvina Ch MD Primary Care Provider [phone] Lyudmila Talley DO Primary Care Pro vider Unavailable So Ellison MD Primary Care Provider Unavaila ble Reason for Visit * Reason Onset Date Comments medication problems 08/06/2012 Encounter Details Date Type Department Care Team Description 08/06/2012 Refill Adult Medicine [address] [address] Lauren Boone PA-C medication problems Social History [...] M.A. - 08/06/2012 2:47 PM EDT Demetrius Valadez spoke with Irma, provided FELICIA # for [...] is patients PCP?: Melvina Ch MD Payor: [employer] [facility] [employer] [place] Plan: [employer] $20 [place]AMS GBS Product Type: [employer] [id number] documented in this encounter Plan of Treatment Not on file documented as of this encounter Visit Diagnoses Not on filedocumented in this encounter Care Teams College Professor Relationship Specialty Start Date End Date Melvina Ch MD [address] [place] [address] PCP - General Internal Medicine 02/28/11 06/01/13 Lyudmila Talley DO [address] [place] [address] PCP - General Internal Medicine 06/02/13 08/01/21 So Ellison MD [address] [place] [address] PCP - General Internal Medicine 08/02/21 documented as of this encounter
--- OUTSIDE RECORDS SUMMARY | 2024-07-17 10:14 | XMS_ITS | Encounter Summary ---
Author Organization [facility] Address [address] [place] [address] Care Team Providers Care Sheet Metal Technician Name Role Phone Lyudmila Talley DO Primary Care Pro vider Unavailable So Ellison MD Primary Care Provider Unavailcamryn campo Encounter Details Date Type Department Care Team Description 04/19/2020 Assistant Chief Nursing Officer Report Medical Records [address] [place] [phone] Carol Lu MD Social History Tobacco Use [...] on filedocumented in this encounter Care Teams Sheet Metal Technician Relationship Specialty Start Date End Date Lyudmila Talley DO PCP - General Internal Medicine 06/02/13 08/01/21 So Ellison MD PCP - General Internal Medicine 08/02/21 documented as of this encounter
--- OUTSIDE RECORDS SUMMARY | 2024-07-17 10:14 | XMS_ITS | Encounter Summary ---
Author Organization [facility] Address [address] [place] [address] Care Team Providers Care Leaflet Distributor Name Role Phone Lyudmila Talley DO Primary Care Pro vider Unavailable So Ellison MD Primary Care Provider Blair campo Encounter Details Date Type Department Care Team Description 04/25/2019 SCAN Medical Records [address] [place] [address] Abstract, Provider Social History Tobacco Use Types [...] on filedocumented in this encounter Care Teams Leaflet Distributor Relationship Specialty Start Date End Date Lyudmila Talley DO PCP - General Internal Medicine 06/02/13 08/01/21 So Ellison MD PCP - General Internal Medicine 08/02/21 documented as of this encounter
--- OUTSIDE RECORDS SUMMARY | 2024-07-17 10:14 | XMS_ITS | Encounter Summary ---
Author Organization [facility] Address [address] [place] [address] Care Team Providers Care Inner Tube Inserter Name Role Phone Lyudmila Talley DO Primary Care Pro vider Unavailable So Ellison MD Primary Care Provider Blair campo Encounter Details Date Type Department Care Team Description 09/24/2015 Hospital Medical Records [address] [place] [address] Enriqueta Paulson PA [address] [place] [address] Social History Tobacco Use Types Packs/Day Years [...] on filedocumented in this encounter Care Teams Inner Tube Inserter Relationship Specialty Start Date End Date Lyudmila Talley DO PCP - General Internal Medicine 06/02/13 08/01/21 So Ellison MD PCP - General Internal Medicine 08/02/21 documented as of this encounter
--- OUTSIDE RECORDS SUMMARY | 2024-07-17 10:14 | XMS_ITS | Encounter Summary ---
[facility] Address [address] [place] [address] Care Team Providers Care Tool Analyst Name Role Phone Lyudmila Talley DO Primary Care Pro vider Unavailable So Ellison MD Primary Care Provider Blair campo Encounter Details Date Type Department Care Team Description 10/14/2015 Vulnerability Assessment Analyst Report Medical Records [address] [place] [address] Filemon Quezada MD Social History Tobacco Use [...] on filedocumented in this encounter Care Teams Tool Analyst Relationship Specialty Start Date End Date Lyudmila Talley DO PCP - General Internal Medicine 06/02/13 08/01/21 So Ellison MD PCP - General Internal Medicine 08/02/21 documented as of this encounter
--- OUTSIDE RECORDS SUMMARY | 2024-07-17 10:14 | XMS_ITS | Encounter Summary ---
Author Organization [facility] Address [address] [place] [address] Care Team Providers Care Newscast Director Name Role Phone Melvina Ch MD Primary Care Provider [phone] Lyudmila Talley DO Primary Care Pro vider Unavailable So Ellison MD Primary Care Provider Unavaila ble Encounter Details Date Type Department Care Team Description 11/02/2011 Telephone Adult [address] [id number] Melvina Ch MD [address] [place] [phone] Social History Tobacco Use Types Packs/Day [...] on filedocumented in this encounter Care Teams Newscast Director Relationship Specialty Start Date End Date Melvina Ch MD [address] [place] [address] PCP - General Internal Medicine 02/28/11 06/01/13 Lyudmila Talley DO [address] [place] [address] PCP - General Internal Medicine 06/02/13 08/01/21 So Ellison MD [address] [place] [address] PCP - General Internal Medicine 08/02/21 documented as of this encounter
--- OUTSIDE RECORDS SUMMARY | 2024-07-17 10:14 | XMS_ITS | Encounter Summary ---
Author Organization [facility] Address [address] [place] [address] Care Team Providers Care Shuttle Spotter Name Role Phone Lyudmila Talley DO Primary Care Pro vider Unavailable So Ellison MD Primary Care Provider Blair campo Encounter Details Date Type Department Care Team Description 01/19/2020 Transfer Records Medical Records [address] [place] [address] Abstract, Provider Social History Tobacco Use Types [...] on filedocumented in this encounter Care Teams Shuttle Spotter Relationship Specialty Start Date End Date Lyudmila Talley DO PCP - General Internal Medicine 06/02/13 08/01/21 So Ellison MD PCP - General Internal Medicine 08/02/21 documented as of this encounter
--- OUTSIDE RECORDS SUMMARY | 2024-07-17 10:14 | XMS_ITS | Encounter Summary ---
Author Organization [facility] Address [address] [place] [address] Care Team Providers Care Gas Cutter Name Role Phone Lyudmila Talley DO Primary Care Pro vider Unavailable So Ellison MD Primary Care Provider Unavaila ble Reason for Visit * Reason Comments E-prescribe Rx Request Encounter Details Date Type Department Care Team Description 06/09/2019 Refill Adult Medicine [address] [address] Lyudmila Talley DO E-prescribe Rx Request Social [...] encounter Miscellaneous Notes * Telephone Encounter - Carolynecarly Sosa - 06/09/2019 11:27 AM EDT Patient [...] is: Payor: [employer] / Plan: [employer] $20 [place] [address] / Product Type: [employer] [id number]-Cktuich documented in this encounter Plan of Treatment Not on file documented as of this encounter Visit Diagnoses Not on filedocumented in this encounter Care Teams Gas Cutter Relationship Specialty Start Date End Date Lyudmila Talley DO PCP - General Internal Medicine 06/02/13 08/01/21 So Ellison MD PCP - General Internal Medicine 08/02/21 documented as of this encounter
[2024-07-24 17:43] LABS: Calprotectin, Fecal 52 mcg/g
== END 2024-07-17 09:24 | disposition home or self-care (01) ==
LOC: HO.LNP 09:23
PROVIDERS: Visit Provider Nurse Practitioner Family
DX: R15.9 Full incontinence of feces (principal); K52.9 Noninfective gastroenteritis and colitis, unspecified
CPT/HCPCS: 83993

== ENCOUNTER 2024-08-07 10:36 | Outpatient (REF) | payer OTHER, SELFPAY ==
--- NOTE | ~2024-08-07 | CT_ITS ---
EXAMINATION: CT ABDOMEN PELVIS ENTEROGRAPHY WITHOUT IV CONTRAST HISTORY: K52.9 - Noninfective gastroenteritis and colitis, unspecified COMPARISON: There are no prior studies for comparison. TECHNIQUE: CT scan of the abdomen and pelvis was performed following administration of 85 mL Omnipaque 350 using standard departmental protocol. Coronal and sagittal reformatted images were generated and reviewed. The patient received low-density oral contrast material for CT enterography. This CT exam was performed with one or more of the following dose reduction techniques: automated exposure control, adjustment of the mA and/or kV according to size, use of iterative reconstruction technique. DLP: 395 mGy-cm FINDINGS: LOWER CHEST: The visualized lung bases are clear. There is no pleural effusion. CARDIOVASCULATURE: The heart is normal in size. There is no pericardial effusion. LIVER: The liver is normal in size and contour. There is a 5.2 cm cyst in the left lobe of the liver. Additional smaller cysts are also noted in the left lobe. The hepatic and portal veins are patent. GALLBLADDER / BILE DUCTS: The gallbladder is unremarkable. There is no intra or extrahepatic biliary ductal. SPLEEN: The spleen is normal in size. No focal splenic lesion is identified. PANCREAS: The pancreas is unremarkable in appearance. ADRENAL GLANDS: Within normal limits. KIDNEYS/RETROPERITONEUM: No renal calculi are identified. There is mild prominence of the renal collecting systems and ureters which may be due to the state of hydration.. No renal masses are identified. LYMPH NODES: No abdominal or pelvic lymphadenopathy. VASCULATURE: The abdominal aorta is normal in caliber. MESENTERY/PERITONEUM: No free fluid. No masses. There is no free intraperitoneal gas. STOMACH: The stomach is unremarkable. SMALL BOWEL: The small bowel is normal in caliber. There is no abnormal small bowel wall thickening or mucosal hyperenhancement. A small bowel anastomosis is noted in the midline. COLON: The colon is unremarkable. APPENDIX: The appendix is not seen, however no inflammatory changes are seen adjacent to the cecum. URINARY BLADDER/PELVIC ORGANS: The urinary bladder is unremarkable. There are calcifications of the uterus, consistent with fibroids. BONES / SOFT TISSUES: No suspicious bony or soft tissue abnormalities. CT/CT enterography IMPRESSION: 1. Unremarkable CT enterography. 2. Mild prominence of the renal collecting systems and ureters which may be secondary to the state of hydration. Electronically signed by: Bradly Sibley MD 08/07/2024 12:36 PM EDT RP
--- OUTSIDE RECORDS SUMMARY | 2024-08-07 11:12 | XMS_ITS | Clinical Summary ---
Author Organization [facility] Address [address] [place] [address] Care Team Providers Care Ground Instructor Basic Name Role Phone So Ellison MD Primary Care Provider [phone] Allergies Active Allergy Reactions Criticality Noted Date [...] Care Team (Late st Contact Info) Description 10/03/2024 12:15 PM EDT Office Visit [facility] [address], [place] [phone] Beverly Starks PA-C [address] [place] [phone] Health Maintenance Due Date Last Done [...] 60-74 years 1-dose series) 2023 Influenza Vaccine 10/17/2024 Hepatitis B Vaccines Aged Out No long er eligible based on patient's age to complete this topic Insurance Advance Directives * Full Code (Latest Code Status on File) Date Activated Date Inactivated Comments 12/14/2023 5:50 AM Care Teams Ground Instructor Basic Relationship Specialty Start Date End Date So Ellison MD [address] [place] [id number] PCP - General 10/31/23
--- OUTSIDE RECORDS SUMMARY | 2024-08-07 11:12 | XMS_ITS | Encounter Summary ---
Author Organization [facility] Address [address] [place] [address] Care Team Providers Care Windows Architect Name Role Phone So Ellison MD Primary Care Provider [phone] Reason for Referral * Imaging (Routine) - Closed Specialty Diagnoses / Procedures Referred By Amado vinson Referred To Contact Radiology Diagnoses Encounter for screening mammogram for breast cancer Procedures MG Mammo Digital Screening w Vincenzo bilat [facility], Self Referral [facility] Referral ID Status Reason Start Date Expiration Date Visits Re quested Visits Authorized [id number] Closed 01/03/2024 01/02/2025 1 1 * Imaging (Routine) - Closed Specialty Diagnoses / Procedures Referred By Contac t Referred To Contact Radiology Diagnoses Encounter for screening mammogram for breast cancer Procedures MG Mammo Digital Screening w Vincenzo bilat [facility], Self Referral [facility] Referral ID Status Reason Start Date Expiration Date Visits Re quested Visits Authorized [id number] Closed 01/03/2024 01/02/2025 1 1 Reason for Visit * Imaging (Routine) - Closed Specialty Diagnoses / Procedures Referred By Contac t Referred To Contact Radiology Diagnoses Encounter for screening mammogram for breast cancer Procedures MG Mammo Digital Screening w Vincenzo bilat [facility], Self Referral [facility] Referral ID Status Reason Start Date Expiration Date Visits Re quested Visits Authorized [id number] Closed 01/03/2024 01/02/2025 1 1 Encounter Details Date Type Department Care Team (Latest Contact Info) Description 08/01/2024 7:55 AM EDT - 08/01/2024 11:59 PM EDT Hospital Encounter Radiology Department - [address] [phone] Encounter for screening mammogram for breast cancer Discharge Disposition: Home or Self Care Social History Tobacco Use Types Packs/Day Years Used Date Smoking Tobacco: Former Cigarettes Q uit: 12/21/1983 Smokeless Tobacco: Never Alcohol Use Standard Drinks/Week Comments No 0 (1 standard drink = 0.6 oz pur e alcohol) Comments No Sex and Gender Information Value Date Recorded Sex Assigned at Not on file Legal Sex Female 2:42 AM EST Gender Identity Not on file Sexual Orientation Not on file documented as of this encounter Discharge Disposition Disposition Code Departure Means Destination Home or Self Care documented in this encounter Plan of Treatment Not on file documented as of this encounter Procedures Procedure Name Priority Date/Time Associated Diagnosis Comments MG MAMMO DIGITAL SCREENING W VINCENZO BILAT Routine 08/01/2024 8:02 AM EDT Encounter for screening mammogram for breast cancer documented in this encounter Results * MG Mammo Digital Screening w Vincenzo bilat (08/01/2024 8:02 AM EDT) Anatomical Region Laterality Modality Breast Bilateral Mammography 08/01/2024 3:59 PM EDT Impressions 08/01/2024 4:03 PM EDT No mammographic evidence of malignancy. BREAST DENSITY: B - There are scattered areas of fibroglandular density. BI-RADS CATEGORY: 1 - NEGATIVE RECOMMENDATION: Screening bilateral mammogram is recommended in 1 year. MAMMO LOCATION: [facility], [address] [place] [address], [address], . -------- FINAL REPORT -------- Dictated By: Heather Boone Dictated Date: 08/01/2024 15:59 ET Assigned Physician: Heather Boone Reviewed and Electronically Signed By: Heather Boone Signed Date: 08/01/2024 16:03 ET Workstation ID: [id number] Transcribed By: Self Edit Transcribed Date: 08/01/2024 15:59 ET Narrative 08/01/2024 4:03 PM EDT EXAM: Screening Mammogram CLINICAL: 59 years old, Female, routine annual exam. ??History of a benign left stereotactic core biopsy in 2011. COMPARISON: 07/23/2023 and as far back as 04/01/2020 ?? TECHNIQUE: Bilateral MLO and CC views were obtained digitally with 3-D mammogram (digital breast tomosynthesis). Computer-aided detection was utilized in evaluation of this exam (CAD). FINDINGS: No new suspicious mass, architectural distortion, or suspicious calcifications. Biopsy marker again noted in the outer left breast. Procedure Note Heather Boone MD - 08/01/2024 EXAM: Screening Mammogram CLINICAL: 59 years old, Female, routine annual exam. History of a benignleft stereotactic core biopsy in 2011. COMPARISON: 07/23/2023 and as far back as 04/01/2020 TECHNIQUE: Bilateral MLO and CC views were obtained digitally with 3-Dmammogram (digital breast tomosynthesis). Computer-aided detection wasutilized in evaluation of this exam (CAD). FINDINGS: No new suspicious mass, architectural distortion, or suspiciouscalcifications. Biopsy marker again noted in the outer left breast. IMPRESSION: No mammographic evidence of malignancy. BREAST DENSITY: B - There are scattered areas of fibroglandular density. BI-RADS CATEGORY: 1 - NEGATIVE RECOMMENDATION: Screening bilateral mammogram is recommended in 1 year. MAMMO LOCATION: [facility], [address] [place] [address], [id number], . -------- FINAL REPORT -------- Dictated By: Heather Boone Dictated Date: 08/01/2024 15:59 ET Assigned Physician: Heather Boone Reviewed and Electronically Signed By: Heather Boone Signed Date: 08/01/2024 16:03 ET Workstation ID: [id number] Transcribed By: Self Edit Transcribed Date: 08/01/2024 15:59 ET us Self Referral [facility] IMG BI PROCEDURES Final Resu lt documented in this encounter Visit Diagnoses Diagnosis Encounter for screening mammogram for breast cancer documented in this encounter Care Teams Windows Architect Relationship Specialty Start Date End Date So Ellison MD PCP - General Internal Medicine 08/02/21 documented as of this encounter
--- OUTSIDE RECORDS SUMMARY | 2024-08-07 11:12 | XMS_ITS | Clinical Summary ---
Author Organization [facility] [address] [place] [address] [place] [address] Phone Care Team Providers Care 3Rd Grade Reading Teacher Name Role Phone So Ellison MD Primary Care Provider Encounters Date Type Department Care Team Description 08/01/2024 7:55 AM EDT - 08/01/2024 11:59 PM EDT Hospital Encounter Radiology Department [address] [phone] Encounter for screening mammogram for breast cancer Discharge Disposition: Home or Self Care from Last 3 Months Surgical History Surgery Date Site/Laterality Comments APPENDECTOMY PROCEDURE: MN APPENDECTOMY FLEXIBLE SIGMOIDOSCOPY 10/01/07 PROCEDURE: MN SIGMOIDOSCOPY FLX DX W/COLLJ SPEC BR/WA IF PFRMD; COMMENT: normal BOWEL RESECTION 06/27 PROCEDURE: HISTORICAL BOWEL RESECTION; COMMENT: blockage, some intestine rmoved OTHER SURGICAL HISTORY 09/16/13 PROCEDURE: COLONOSCOPY, REMOVE LESION; COMMENT: [facility], tubular adenoma and hyperplastic polyp ABDOMINAL SURGERY 09/14/15 PROCEDURE: MN UNLISTED PROCEDURE ABDOMEN PERITONEUM & OMENTUM BREAST BIOPSY Left PROCEDURE: BX BREAST; PERC NEEDLE CORE W/IMAG GUID; COMMENT: ?lt-cyst Medical History Medical History Date Comments Neuralgia, neuritis, and rad iculitis, unspecified 06/08/2006 DX:Neuralgia, neuritis, and radiculitis, unspecified 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 Subserosal leiomyoma of uterus 09/09/2010 D X:Subserosal leiomyoma of uterus SBO (small bowel obstruction ) (CMS/HCC V24, CMS/HCC V28) DX:SBO (small bowel obstruct ion) (HCC); COMMENT: partial Lyme disease DX:Lyme disease Family History Medical History Relation Name Comments Breast cancer Aunt p aunt 60s Arthritis Father 76 Hypertension Father 76 prostate cancer Prostate cancer Father 76 Arthritis Mother Colon cancer Neg Hx Ovarian [...] Sexual Orientation Not on file Obstetrics History Para Term AB IAB SAB Ectopic Multiple Livin g Live Births 2 2 2 2 Date Outcome GA Total Labor Labor/2nd/3rd Weight Sex Type Anes PTL [place] A1 A5 Name Clin Term Term Plan of Treatment Health Maintenance Due Date Last Done Comments Hepatitis B Vaccines (2 of 3 - 19+ 3-dose series) 09/30/2010 09/02/2010 COVID-19 Vaccine (2 - Pfizer risk series) 04/27/2020 04/06/2020 Cervical Cancer Screening: Pap Smear 06/12/2021 06/12/2018 Colorectal Cancer Screening: Colonoscopy 02/25/2022 Depression Screening 02/25/2022 HIV Screening 02/25/2022 Social Influencers of Health Screening 02/25/2022 Zoster Vaccines (2 of 2) 07/03/2023 05/08/2023 Influenza Vaccine (Season Ended) 2024 Breast Cancer Screening 08/01/2026 08/02/19 25, 07/23/2023, 07/23/2023, Additional history exists DTaP,Tdap,and Td Vaccines (3 - Td or Tdap) 05/04/2033 05/04/2023, 10/23/2011 RSV Immunization Adult Patients (1 - 1-dose 75+ series) 06/04/2038 Hepatitis C Screening Completed 03/28/2018 Pneumococcal Vaccine: 50+ Years Completed 05/04/2023 Pneumococcal Vaccine: Pediatrics (0 to 5 Years) and At-Risk Patients (6 to 64 Years) Completed 05/04/2023 HIB Vaccines Aged Out No longer eligi [...] Encounter for screening mammogram for breast cancer PAP SMEAR Routine 06/12/2018 from Last 3 Months or Most Recently Relevant to Health Maintenance Results * MG Mammo Digital Screening w Vincenzo bilat (08/01/2024 8:02 AM EDT) Anatomical Region Laterality Modality Breast Bilateral Mammography 08/01/2024 3:59 PM EDT Impressions 08/01/2024 4:03 PM EDT No mammographic evidence of malignancy. BREAST DENSITY: B - There are scattered areas of fibroglandular density. BI-RADS CATEGORY: 1 - NEGATIVE RECOMMENDATION: Screening bilateral mammogram is recommended in 1 year. MAMMO LOCATION: [facility], [address] [place] [address], [phone], . -------- FINAL REPORT -------- Dictated By: Heather Boone Dictated Date: 08/01/2024 15:59 ET Assigned Physician: Heather Boone Reviewed and Electronically Signed By: Heather Boone Signed Date: 08/01/2024 16:03 ET Workstation ID: [id number] Transcribed By: Self Edit Transcribed Date: 08/01/2024 [...] is recommended in 1 year. MAMMO LOCATION: [facility], [address] [place] [address], [address], . -------- FINAL REPORT -------- Dictated By: Heather Boone Dictated Date: 08/01/2024 15:59 ET Assigned Physician: Heather Boone Reviewed and Electronically Signed By: Heather Boone Signed Date: 08/01/2024 16:03 ET Workstation ID: [id number] Transcribed By: Self Edit Transcribed Date: 08/01/2024 15:59 ET us Self Referral [facility] IMG BI PROCEDURES Final Resu lt * Pap smear (06/12/2018) 06/12/2018 Narrative HISTORICAL TESTING LAB RESULTING AGENCY - 06/14/2018 4:28 PM EDT [id number] THINPREP PAP, IMAGED: NEGATIVE FOR SQUAMOUS INTRAEPITHELIAL LESION AND MALIGNANCY . ATROPHY. ROBSON WELLS(ASCP) (CASE ELECTRONICALLY SIGNED 06 14 2018) RESULT [...] or Most Recently Relevant to Health Maintenance Insurance [facility] Care Teams 3Rd Grade Reading Teacher Relationship Specialty Start Date End Date So Ellison MD PCP - General Internal Medicine 08/02/21
[2024-08-07] MEDS: iohexoL 350 MG/ML 100 ML INFUS..BTL IV (12:01)
[2024-08-07] MEDS: Sorbitol/Mannit/Xanth Imaging 500 ML LIQUID 1500 ML PO (12:02)
== END 2024-08-07 10:37 | disposition home or self-care (01) ==
LOC: HO.CT 10:36
PROVIDERS: PCP Internal Medicine; Visit Provider Nurse Practitioner Family
DX: K52.9 Noninfective gastroenteritis and colitis, unspecified (principal)
CPT/HCPCS: 74177; Q9967

== ENCOUNTER → 2024-08-07 10:38 | Outpatient (BNV) | payer OTHER, SELFPAY | PROVIDERS: PCP Internal Medicine; Visit Provider Radiology Diagnostic Radiology | DX: K52.9 Noninfective gastroenteritis and colitis, unspecified (principal) | CPT/HCPCS: 74177 ==

== ENCOUNTER 2025-01-12 15:57 | Outpatient (AMB) | payer OTHER, SELFPAY ==
--- NOTE | 2025-01-12 16:01 | A.OFFVIS_ITS ---
Vital Signs 01/12/25 16:06 Height 5 ft 3 in Weight 131 lb BMI 23.2 BP 120/66 Blood Pressure Location Rt brachial Position Sitting Pulse 88 Pulse Source Pulse Oximeter Pulse Oximetry (%) 95 Oxygen Delivery Method Room Air Intake Visit Reasons: 6 MO F/U Gerd, IBS Intake Note: ESTABLISHED PATIENT for CIC, GERD, and hemorrhoid mgmt. Chief Complaint; Pt denies any GI changes or new concerns since last visit. Pt states that she has been making her dietary adjustments per her last office visit, and as been doing well. Luncheonette Operator Required: No Accompanied by: Self / Same As Patient Allergies ciprofloxacin Allergy (Intermediate, Verified 01/12/25 16:02) Swelling lactose Allergy (Unknown, Verified 01/12/25 16:02) Unknown HPI HPI 6 MO F/U Gerd, IBS: Details: LAST VISIT: Ileitis Status post colonoscopy IBS (irritable bowel syndrome) Plan Patient will continue low FODMAP diet. Ileitis found on colonoscopy confirmed by biopsy. Patient will be sent for CT enterography to rule out Crohn's. Will check fecal calprotectin. Patient currently is taking famotidine is feeling well for the most part. Her symptoms of acid reflux have been suppressed. Patient denies any nausea or vomiting. Otherwise reports to be feeling fairly well. She will continue low FODMAP diet as we discussed today. Follow-up in 6 months, sooner on as needed basis. She is agreeable to this plan and verbalizes understanding of instructions. She was given the opportunity to ask questions and all questions answered. ? Thank you for allowing me to participate in her care Orders CT enterography Today K52.9 Blood Urea Nitrogen Today R10.11 Creatinine Today R10.11 Calprotectin, Fecal Today K52.9, R15.9 TODAY'S VISIT Patient is here today for follow-up and to discuss lab results as well as CT enterography results. Patient had normal CT enterography and fecal calprotectin was negative. Patient reports that after she made dietary changes in his following low FODMAP diet she has been doing well. Occasionally patient reports that when she eats food that was not on the low FODMAP list she might have postprandial loose stools and abdominal cramping and bloating. Otherwise patient reports that she has been doing well. Trying to do as best as she can with dietary restrictions. Denies any dyspepsia, dysphagia or odynophagia. Denies any melena, hematochezia, unintentional weight loss or ribbon like stools. Patient denies any mucus in her stools. No abdominal pain or discomfort. Occasional bloating depending on what she eats [facility] Medical History Ileitis Hyperlipidemia GERD (gastroesophageal reflux disease) Urinary retention with incomplete bladder emptying Urinary frequency Eczema Seronegative arthritis Osteoarthritis Bowel obstruction Surgical History Hx of shoulder surgery History of esophagogastroduodenoscopy (EGD) H/O colonoscopy History of appendectomy Family History Father Prostate cancer Mother Glaucoma Brother Tonsil cancer Social History Housing: House Are you a primary live in caregiver to a significant other at home: No Do you presently have visiting nurse or other home services: No Alcohol intake: never Patient Tobacco Use Status: Never used Tobacco e-Cigarette/Vaping Use: Never Used service: No Current occupational status: employed Cognitive needs: No Hearing needs: No Vision needs: No Review of Systems Const Denies weight gain and Denies weight loss ENT Reports no additional complaints, Denies dysphagia and Denies odynophagia Card Reports no additional complaints Resp Reports no additional complaints GI Denies abdominal pain, Denies belching, Denies melena, Reports bloating, Reports hematochezia, Denies change in bowel habits, Denies dysphagia, Denies excessive flatus, Denies dyspepsia, Denies heartburn, Denies diarrhea, Denies loose stools, Denies nausea, Denies odynophagia and Denies vomiting Reports no additional complaints Musc Reports no additional complaints Neuro Reports no additional complaints Psych Reports no additional complaints Endo Reports no additional complaints Physical Exam Vital Signs: Last Vital Signs Pulse 88 01/12/25 16:06 BP 120/66 01/12/25 16:06 Pulse Ox 95 01/12/25 16:06 Oxygen Delivery Method Room Air 01/12/25 16:06 BMI result Body Mass Index 23.2 Const General: healthy appearing, no acute distress and well developed Nutritional Appearance: well nourished Orientation/consciousness: patient oriented x3 Resp Effort & Inspection: normal respiratory effort, able to speak in complete sentences, no tracheal deviation and symmetric chest movement Auscultation: clear to auscultation bilaterally Cardio Rate: regular rate GI Inspection: Yes normal to inspection and No distended Palpation (GI): Soft to palpation, not firm, nontender and No hepatosplenomegaly present Auscultation: normal bowel sounds General: Yes no CVA tenderness Back/Spine/Pelvis Back: no CVA tenderness Skin General skin exam: elasticity normal, turgor normal and dry skin Neuro General: patient oriented x3 Psych Appearance: grossly normal Mental Status: mental status grossly normal Results Reviewed Results Reviewed: CT ENTEROGRAPHY FINDINGS: LOWER CHEST: The visualized lung bases are clear. There is no pleural effusion. CARDIOVASCULATURE: The heart is normal in size. There is no pericardial effusion. LIVER: The liver is normal in size and contour. There is a 5.2 cm cyst in the left lobe of the liver. Additional smaller cysts are also noted in the left lobe. The hepatic and portal veins are patent. GALLBLADDER / BILE DUCTS: The gallbladder is unremarkable. There is no intra or extrahepatic biliary ductal. SPLEEN: The spleen is normal in size. No focal splenic lesion is identified. PANCREAS: The pancreas is unremarkable in appearance. ADRENAL GLANDS: Within normal limits. KIDNEYS/RETROPERITONEUM: No renal calculi are identified. There is mild prominence of the renal collecting systems and ureters which may be due to the state of hydration.. No renal masses are identified. LYMPH NODES: No abdominal or pelvic lymphadenopathy. VASCULATURE: The abdominal aorta is normal in caliber. MESENTERY/PERITONEUM: No free fluid. No masses. There is no free intraperitoneal gas. STOMACH: The stomach is unremarkable. SMALL BOWEL: The small bowel is normal in caliber. There is no abnormal small bowel wall thickening or mucosal hyperenhancement. A small bowel anastomosis is noted in the midline. COLON: The colon is unremarkable. APPENDIX: The appendix is not seen, however no inflammatory changes are seen adjacent to the cecum. URINARY BLADDER/PELVIC ORGANS: The urinary bladder is unremarkable. There are calcifications of the uterus, consistent with fibroids. BONES / SOFT TISSUES: No suspicious bony or soft tissue abnormalities. CT/CT enterography IMPRESSION: 1. Unremarkable CT enterography. 2. Mild prominence of the renal collecting systems and ureters which may be secondary to the state of hydration. Laboratory Tests 07/17/24 07:35 Stool Calprotectin 52 Assessment & Plan Assessment & Plan (1) Irritable bowel syndrome: Code(s): K58.9 - Irritable bowel syndrome, unspecified Qualifiers: Irritable bowel syndrome type: with both diarrhea and constipation Qualified Code(s): K58.2 - Mixed irritable bowel syndrome (2) Postprandial abdominal bloating: Code(s): R14.0 - Abdominal distension (gaseous) (3) Ileitis: Code(s): K52.9 - Noninfective gastroenteritis and colitis, unspecified Category: Medical Plan Patient will continue low FODMAP diet. Continue fiber in her diet to help her bulk stools. Continue avoiding dietary triggers. History of ileitis, CT enterography was normal. Patient will also avoid NSAIDs. Follow-up in the office in 1 year, sooner on as needed basis. She is agreeable to this plan and verbalizes understanding of instructions. She was given the opportunity to ask questions and all questions answered. Thank you for allowing me to participate in her care Coding Level of Care Code Est Pt Level 4 (13405) Complex EM visit Add On G2211 Diagnoses Irritable bowel syndrome with both constipation and diarrhea K58.2 Irritable bowel syndrome type: with both diarrhea and constipation Postprandial abdominal bloating R14.0 Ileitis K52.9 Time Spent (min) 35 Comment 25 minutes spent with patient and additional 10 minutes spent reviewing her records
[2025-01-12 16:06] VITALS: BP 120/66; PULSE 88; O2SAT 95; BMI 23.2
--- OUTSIDE RECORDS SUMMARY | 2025-01-12 18:57 | XMS_ITS | Encounter Summary ---
Author Organization [facility] Address [address] [place] [address] [place] [id number] Phone Care Team Providers Care Cafeteria Or Lunchroom Checker Name Role Phone So Ellison MD Primary Care Provider [phone] Reason for Visit * Reason Comments Medication Refill Encounter Details Date Type Department Care Team (Late st Contact Info) Description 12/19/2024 Telephone [facility] Rheumatology [address] [place] [address] Carol Lu MD [address] [facility], [address] [place] [address] [email or web address] Medication Refill Social History Tobacco Use Types Packs/Day Years Used Date Smoking Tobacco: Never Smokeless Tobacco: Never Education Answer Date Recorded Are you interested in more education? Not on magdiel e 07/14/2022 Are you concerned about learning? Not on file 07/14/2022 No 07/14/2022 No 07/14/2022 Digital Access Answer Date Recorded No 08/14/2022 No 08/14/2022 Reliable internet access at home? Not on file 08/14/2022 Device with a working camera? Not on file Comments Unknown Sex and Gender Information Value Date Recorded Sex Assigned at Not on file Legal Sex Female 10:34 PM EDT Gender Identity Not on file Sexual Orientation Not on file documented as of this encounter Progress Notes * Viviana Arias CMA - 01/07/2025 11:25 AM EDT I spoke with patient.Last script was sent to [facility] (that is where request came from) Patient wants to make sure they go to [facility]. I put a note in chart to verify this when refilling meds. She does not need any refills at this time. Follow up appt scheduled and reminded toget labs prior to appt. Standing orders still valid. * Jennifer Leigh RN - 01/07/2025 9:58 AM EDT Message on nurse line- Moved to [place] and medication needs to be sent to [facility], not [facility]. Please call her back, no other information left. * Jennifer Elliott MA - 12/22/2024 2:20 PM EDT Please reach out to patient and schedule 4 month follow up or next available. * Carol Lu MD - 12/19/2024 12:50 PM EDT Please ask her to make a follow-up appointment no later than 4 months and get monitoring labs priorto visit - stading orders in epic. * Serena Steven MA - 12/19/2024 8:32 AM EDT At least one Rx below has no protocol and needs review. Rx Care Gap Status - Instructions for Clinical Staff (prescriber discretion applies): > Mismatch review guide > No future appt: Please schedule if appropriate. Visit Info Last visit: 11/12/2024 Carol Lu MD - Rheumatology [facility] RHEUMATOLOGY > Requested f/u: Return in about 5 months (around 04/14/2025). Upcoming visit: None ACTIONS TAKEN BY Serena Steven MA Rx(s) without protocol Renewal is at prescriber discretion. - methotrexate sodium Medication Refill Last office visit: 11/12/2024 Next office visit: Visit date not found Last CBC w/diff Lab Results Component Value Date WBC 6.27 11/12/2024 RBC 4.41 11/12/2024 HGB 13.0 11/12/2024 HCT 39.5 11/12/2024 PLT 248 11/12/2024 MCV 89.6 11/12/2024 MCH 29.5 11/12/2024 MCHC 32.9 11/12/2024 RDW 12.4 11/12/2024 MVP 9.8 11/12/2024 NRBCA 0.00 11/12/2024 DIFMET Auto 11/12/2024 NEUT 63.1 11/12/2024 LYMP 25.5 11/12/2024 MON 8.9 11/12/2024 EOSP 1.6 11/12/2024 ANEU 3.95 11/12/2024 ALYMP 1.60 11/12/2024 AMONS 0.56 11/12/2024 AEOSN 0.10 11/12/2024 ABASOP 0.04 11/12/2024 IMMGRAN 0.02 11/12/2024 Last CMP Lab Results Component Value Date NA 140 11/12/2024 K 4.2 11/12/2024 CL 102 11/12/2024 CO2 26 11/12/2024 BUN 16 11/12/2024 CRE 0.70 11/12/2024 GLU 87 11/12/2024 ALB 4.6 11/12/2024 TP 7.4 11/12/2024 CA 10.0 11/12/2024 ALKP 72 11/12/2024 TBILI 0.3 11/12/2024 SGOT 23 11/12/2024 SGPT 14 11/12/2024 GLOB 2.8 11/12/2024 GFR 98 11/12/2024 ANION 16 11/12/2024 Last CRP Lab Results Component Value Date CRPT <3.0 11/12/2024 Last ESR ESR Date Value Ref Range Status 11/12/2024 4 0 - 30 mm/h Final documented in this encounter Plan of Treatment Upcoming Encounters Date Type Department Care Team (Late st Contact Info) Description 04/20/2025 11:00 AM EST Office Visit [facility] Rheumatology [address] [place] [address] Carol Lu MD [address] [facility], [address] [place] [address] [email or web address] documented as of this encounter Visit Diagnoses Diagnosis Erosive (osteo)arthritis documented in this encounter Care Teams Cafeteria Or Lunchroom Checker Relationship Specialty Start Date End Date So Ell[place] [address] PCP - General Internal Medicine 09/02/20 documented as of this encounter Additional Source Comments The information contained in this document represents components of the legal health record. It is not the complete legal health record.[facility]
--- OUTSIDE RECORDS SUMMARY | 2025-01-12 18:57 | XMS_ITS ---
Author Name [facility] Organization Unknown Results Test Name/Text Value Interpretation Date Range Source Prothrombin time 11.0 seconds Normal 11/26/2023 10 - 13.5 [facility] INR PPP 1.0 Normal 11/26/2023 [facility] Anticoagulant Information not given Normal 11/26/2023 [facility] aPTT PPP 32.0 seconds Normal 11/26/2023 25 - 36 [facility] Anticoagulant Information not given Normal 11/26/2023 [facility] History of Medication Use Medication Directions Dispensed Refills Start Date End Date Stat us famotidine (PEPCID) 20 MG tablet TAKE 1 TABLET BY MOUTH TWICE A DAY 02/06/2024 03/08/2024 active methoTREXate (RHEUMATREX) 2.5 mg tablet Take 4 tablets (10 mg total) by mouth once a week 11/15/2023 active amoxicillin (AMOXIL) 500 MG capsule Take 1 capsule (500 mg total) by mouth 3 (three) times a day. 09/19/2023 active ibuprofen (MOTRIN) 800 mg tablet Take 1 tablet (800 mg total) by mouth See Admin Instructions. EVERY 4 TO 6 HOURS NEEDED. 09/19/2023 active ondansetron (ZOFRAN) 4 MG tablet 1 TABLET EVERY 4 TO 6 HOURS NEEDED FOR NAUSEA 09/19/2023 active lidocaine (LIDODERM) 5 % patch Place 1 patch on the skin daily as needed. 08/17/2023 active meloxicam (MOBIC) 15 MG tablet Take 1 tablet (15 mg total) by mouth daily as needed. 08/17/2023 active folic acid (FOLVITE) 1 MG tablet Take 1 tablet (1 mg total) by mouth daily. 07/25/2023 active ascorbic acid (VITAMIN C) 500 MG Tab CR Take 1 tablet (500 mg total) by mouth daily. active calcium carbonate-vitamin D (CALTRATE+D) 600 mg-10 mcg tablet Take 1 tablet by mouth every morning with breakfast. active glucosamine chondroitin complex (OSTEO BI-FLEX) Tab tablet Take 1 tablet by mouth daily. active Multiple Vitamins-Minerals (Multivitamin Adult, Minerals,) Tab Take by mouth daily. active OMEprazole (PriLOSEC OTC) 20 MG tablet Take 1 tablet (20 mg total) by mouth daily as needed. active triamcinolone (KENALOG) 0.1 % lotion Apply 1 Application topically daily. active Allergies Allergen Reaction Severity Comment Documented Date Source Statu s CIPROFLOXACIN SWELLING 11/16/2023 [facility] active Problems Problem Status Onset Date Problem Type Date of Resolution Source Heartburn active 2023-11-26 ProblemAct [facility] Overweight (BMI 25.0-29.9) active 2023-11-26 ProblemAct [facility] DVT (deep venous thrombosis) active 2015-03-19 ProblemAct [facility] Impacted cerumen of right ear active [facility]DiagnosisAct [facility] Gastroesophageal reflux disease without esophagitis active EncounterDiagnosisAct [facility] Encounters Encounter Type Encounter Reason Primary Diagnosis Location Date Ambulatory Gastro-esophageal reflux disease without esophagitis Gastro-esophageal reflux disease without esophagitis [facility] 12/19/2024 Ambulatory Follow-up Follow-up [facility] 02/06/2024 Ambulatory Pain in throat Pain in throat [facility] 12/14/2023 Ambulatory Encounter for other preprocedural examination Encounter for other preprocedural examination [facility] 11/26/2023 Ambulatory Encounter for other preprocedural examination Encounter for other preprocedural examination [facility] 11/26/2023 Care Team Organization Name Specialty Phone Email Start Date End [facility] te [facility], [facility]! So Ellison [facility] 11/26/2023 [facility] 10/31/2023 [facility] So Ell[facility] 10/31/2023
--- OUTSIDE RECORDS SUMMARY | 2025-01-12 18:57 | XMS_ITS | Encounter Summary ---
Author Organization [facility] Address [address] [place], [place] [id number] Phone Care Team Providers Care Early Childhood Name Role Phone So Ellison MD Primary Care Provider Encounter Details Date Type Department Care Team (Latest Contact Info) Description 09/10/2020 Ancillary Orders [facility] Rheumatology [address] [place] [address] Carol uL MD [address] [place] [address], [address] [address] [email or web address] Primary osteoarthritis involving multiple joints Social History Tobacco Use Types Packs/Day Years Used Date Smoking Tobacco: Never Smokeless Tobacco: Never Comments Unknown Sex and Gender Information Value Date Recorded Sex Assigned at Not on file Legal Sex Female 10:34 PM EDT Gender Identity Not on file Sexual Orientation Not on file documented as of this encounter Plan of Treatment Upcoming Encounters Date Type Department Care Team (Late st Contact Info) Description 04/20/2025 11:00 AM EST Office Visit [facility] Rheumatology [address] [place] [address] Carol Lu MD [address] [place] [address], [address] [address] documented as of this encounter Results * XR KNEE 4 OR MORE VIEWS (BILATERAL) (09/10/2020 10:12 AM EDT) Anatomical Region Laterality Modality Knee Bilateral, Knee Right, Knee Left Computed Radiography 09/10/2020 10:1 8 AM EDT Impressions 09/10/2020 10:21 AM EDT Mild patellofemoral degenerative change and lateral compartment degenerative change on the left. No significant osteoarthritic change or effusions seen on the right. Narrative 09/10/2020 10:21 AM EDT Bilateral knees, 4 views each. No prior. Left knee: Maintained joint spaces. Trace spurring at the lateral margin the patellofemoral.. No chondrocalcinosis. No bony lesions. No definite effusion. No fracture or bony lesions. No osteochondral findings of concern. Right knee: Trace lateral spurring at the lateral compartment. No significant spurring at the patellofemoral compartment although joint space may be slightly more narrowed air than on the left. This is more likely projectional. No effusion. No bony lesions or osteochondral finding of concern. Procedure Note Grayson Burton MD - 09/10/2020 Bilateral knees, 4 views each. No prior. Left knee: Maintained joint spaces. Trace spurring at the lateral marginthe patellofemoral.. No chondrocalcinosis. No bony lesions. No definiteeffusion. No fracture or bony lesions. No osteochondral findings ofconcern. Right knee: Trace lateral spurring at the lateral compartment. Nosignificant spurring at the patellofemoral compartment although jointspace may be slightly more narrowed air than on the left. This is morelikely projectional. No effusion. No bony lesions or osteochondral findingof concern. IMPRESSION: Mild patellofemoral degenerative change and lateral compartmentdegenerative change on the left. No significant osteoarthritic change oreffusions seen on the right. 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 It is not the complete legal health record.[facility]
--- OUTSIDE RECORDS SUMMARY | 2025-01-12 18:57 | XMS_ITS | Clinical Summary ---
Author Organization [facility] Address [address] [place] [address] Care Team Providers Care Weight Caller Name Role Phone So Ellison MD Primary Care Provider [phone] Allergies Active Allergy Reactions Criticality Noted Date Comments Ciprofloxacin Swelling Medium 11/16/2023 Medications ascorbic acid (VITAMIN C) 500 MG Tab CR Take 1 tablet (500 mg total) by mouth daily. Active calcium carbonate-vitam in D (CALTRATE+D) 600 mg-10 mcg tablet Take [...] mouth once a week 4 Active Multiple Vitamins-Minera ls (Multivitamin Adult, Minerals,) Tab Take by mouth daily. Active triamcinolone (KENALOG) 0.1 % lotion Apply 1 Application topically daily. Active glucosamine chondroitin complex (OSTEO BI-FLEX) Tab tablet Take 1 tablet by mouth daily. Active ibuprofen (MOTRIN) 800 mg tablet Take 1 tablet (800 mg total) by mouth See Admin Instructions. EVERY 4 TO 6 HOURS NEEDED. 4 Active ondansetron (ZOFRAN) 4 MG tablet 1 TABLET EVERY 4 TO 6 HOURS NEEDED FOR NAUSEA 4 Active OMEprazole (PriLOSEC OTC) 20 MG tabletIndicatio ns:Gastroesopha geal reflux disease without esophagitis Take 1 tablet (20 mg total) by mouth every morning before breakfast. 90 tablet 3 5 Active OMEprazole (PriLOSEC OTC) 20 MG tablet Take 1 tablet (20 mg total) by mouth daily as needed. 025 Discontin ued(Reord er) amoxicillin (AMOXIL) 500 MG capsule Take 1 capsule (500 mg total) by mouth 3 (three) times a day. 4 025 Discontin ued(Med List Clean-up/ Old Med - No E-Cancel/ No AVS) famotidine (PEPCID) 20 MG tabletIndicatio ns:Gastroesopha geal reflux disease without esophagitis,Rickey n in throat TAKE 1 TABLET BY MOUTH TWICE A DAY 60 tablet 5 025 Discontin ued(Thera py completed ) Active Problems Problem Noted Date Diagnosed Date Heartburn 11/26/2023 Assessment & Plan (11/26/2023 9:51 AM EDT): Well-controlled and managed with medication. Continue current medication regimen as prescribed. Continue plan as previously directed by your provider. Overweight (BMI 25.0-29.9) 11/26/2023 Assessment & Plan (11/26/2023 9:51 AM EDT): BMI: . Diet, exercise and lifestyle modifications. DVT (deep venous thrombosis) 03/19/2015 Overview (11/26/2023): With [facility] Encounters Date Type Department Care Team Description 12/19/2024 11:45 AM EDT Office Visit [facility] [address] [place] [address] Beverly Starks PA-C Gastroesophageal reflux disease without esophagitis (Primary Dx); Impacted cerumen of right ear 11/03/2024 Refill [facility] [address] [place] [phone] K[address] Mckee, DO Gastroesophageal reflux disease without esophagitis; Pain in throat 11/03/2024 Refill [facility] [address] [place] [phone] Km Mckee, DO Gastroesophageal reflux disease without esophagitis; Pain in throat from Last 3 Months Family History Medical History Relation Name Comments [...] 74 12/14/2023 10:00 AM EDT Temperature 36.1 C (97 F) 12/14/2023 8:58 AM EDT Respiratory Rate 15 12/14/2023 10:00 AM EDT Oxygen Saturation 98% 12/14/2023 10:00 AM EDT Inhaled Oxygen Concentration - - Weight 66.2 kg (146 lb) 02/06/2024 10:14 AM EST Height 160 cm (5' 3 ) 02/06/2024 10:14 AM EST Body Mass Index 25.86 02/06/2024 10:14 AM EST Plan of Treatment Health Maintenance Due Date Last Done Comments Hepatitis C Virus Screening 1965 HIV Screening 06/04/1976 DTaP/Tdap/Td Vaccines (1 - Tdap) 06/04/1982 Pneumococcal Vaccines 50+ (1 of 2 - PCV) 06/04/1982 Zoster (Shingles) Vaccine (1 of 2) 06/04/1982 Pap Smear (Ages 21-65) 06/04/1984 Mammogram 2003 Colonoscopy 06/04/2008 RSV Vaccine 50 years and old er and Patients (1 - Risk 50-74 years 1-dose series) 06/04/2013 COVID-19 Vaccine (2 - Pfizer risk series) 04/27/2020 04/06/2020 Influenza Vaccine 10/17/2024 Hepatitis B Vaccines Aged Out No long er eligible based on patient's age to complete this topic Insurance Advance Directives * Full Code (Latest Code Status on File) Date Activated Date Inactivated Comments 12/14/2023 5:50 AM Care Teams Weight Caller Relationship Specialty Start Date End Date So Ellison MD [address] [place] [address] PCP - General 10/31/23
--- OUTSIDE RECORDS SUMMARY | 2025-01-12 18:57 | XMS_ITS | Encounter Summary ---
Author Organization [facility] Address [address] [place] [address] [place] [address] Phone Care Team Providers Care Literacy Education Professor Name Role Phone So Ellison MD Primary Care Provider [phone] Encounter Details Date Type Department Care Team (Latest Contact Info) Description 02/27/2023 Ancillary Orders [facility] Rheumatology [address] [place] [address] Carol Lu MD [address] [facility], [address] [place] [address] [email or web address] Erosive (osteo)arthritis (Primary Dx); Primary osteoarthritis involving multiple joints; Psoriasis; Long-term use of Plaquenil; NSAID long-term use; Synovial cyst of left popliteal space Social History Tobacco Use Types Packs/Day Years [...] Description 04/20/2025 11:00 AM EST Office Visit [facility] Rheumatology [address] [place] [address] Carol Lu MD [address] [facility], [address] [place] [address] [email or web address] documented as of this encounter Results * XR KNEE 4 OR MORE VIEWS (BILATERAL) (02/27/2023 8:35 AM EST) Anatomical Region Laterality Modality Knee Bilateral, Knee Right, Knee Left Computed Radiography 02/28/2023 5:23 PM EST Impressions 02/28/2023 5:24 PM EST Tricompartmental osteoarthritis in the left knee, moderate in the lateral compartment. Mild medial and patellofemoral compartment osteoarthritis in the right knee. Findings are slightly progressed since 2020. Narrative 02/28/2023 5:24 PM EST XR KNEE 4 OR MORE VIEWS (BILATERAL) Referring clinician's provided indication for this examination in Epic: Pain; left knee popliteal cyst COMPARISON: XR KNEE 4 OR MORE VIEWS (BILATERAL) FINDINGS: Left Knee: No fracture or dislocation. Mild medial and moderate lateral tibiofemoral joint space narrowing and osteophytosis. Tiny patellar osteophytes. Joint effusion. Right Knee: No fracture or dislocation. Mild medial joint space narrowing. Tiny patellar osteophytes. No substantial joint effusion. Findings are minimally progressed since 2020. Procedure Note Bethel Corral MD - 02/28/2023 XR KNEE 4 OR MORE VIEWS (BILATERAL) Referring clinician's provided indication for this examination in [facility]:Pain; left knee popliteal cyst COMPARISON: XR KNEE 4 OR MORE VIEWS (BILATERAL) FINDINGS: Left Knee: No fracture or dislocation. Mild medial and moderate lateraltibiofemoral joint space narrowing and osteophytosis. Tiny patellarosteophytes. Joint effusion. Right Knee: No fracture or dislocation. Mild medial joint space narrowing.Tiny patellar osteophytes. No substantial joint effusion. Findings are minimally progressed since 2020. IMPRESSION: Tricompartmental osteoarthritis in the left knee, moderate in the lateralcompartment. Mild medial and patellofemoral compartment osteoarthritis in the rightknee. Findings are slightly progressed since 2020. Carol Lu MD IMG XR LOWER EXTREMITY F inal Result documented in this encounter Visit Diagnoses Diagnosis Erosive (osteo)arthritis Synovial cyst of left popliteal space Erosive (osteo)arthritis- Primary Primary osteoarthritis involving multiple joints Psoriasis Other psoriasis Long-term use of Plaquenil NSAID long-term use Encounter for long-term (current) use of non-steroidal anti-inflammatories Synovial cyst of left popliteal space documented in this encounter Care Teams Literacy Education Professor Relationship Specialty Start Date End Date So Ellison MD [address] [place] [address] PCP - General Internal Medicine 09/02/20 documented as of this encounter Additional Source Comments The information contained in this document represents components of the legal health record. It is not the complete legal health record.[facility]
--- OUTSIDE RECORDS SUMMARY | 2025-01-12 18:57 | XMS_ITS | Clinical Summary ---
Author Organization [facility] Address [address] [place], [place] [id number] Phone Care Team Providers [facility] [place] [facility] Name Role Phone So Ellison MD Primary Care Provider Allergies Active Allergy Reactions Criticality Noted Date Comments Ciprofloxacin Hives 07/29/2010 Medications Medication-Satnam e Text Vitamin C Active multivitamins capsule Take by mouth. Activ e calcium carbonate-eulalio min D3 1500 mg (600 mg elemental)-400 units per tablet Take 1 tablet by mouth. Active fluticasone propionate (FLONASE) 50 mcg/actuation nasal spray 2 sprays each nostril twice daily x 1 week then once daily as needed. 01/03/20 18 Active triamcinolone acetonide 0.1 % lotion Apply 1 application topically daily. Active ketoconazole (NIZORAL) 2 % shampoo APPLY TO SCALP ONCE DAILY TO ONCE EVERY OTHER DAY (LATHER AND RINSE OFF AFTER 5 MINUTES) 09/03/19 22 Active fexofenadine HCl (VIVIANA ORAL) Take by mouth. Activ e lidocaine (LIDODERM) 5 %Indications:C hronic midline low back pain without sciatica Place 1 patch onto the skin daily. Remove & Discard patch within 12 hours or as directed by MD 30 patch 3 08/17/19 24 Active meloxicam (MOBIC) 15 MG tabletIndicati ons:Bilateral hand pain take 1 tablet by mouth every day with food 90 tablet 1 11/22/19 24 Active glucosamine-ch ondroitin (OSTEO BI-FLEX) 250-200 mg Tab Take 1 tablet by mouth daily. Active Medication-Satnam e Text Take 1 tablet by mouth daily. Molekin-- D3 plus K2 1999 j.m. 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 90 tablet 3 05/15/19 25 Active METHOTREXATE 2.5 MG Oral tabletIndicati ons:Erosive (osteo)arthrit is TAKE 4 TABLETS BY MOUTH EVERY 7 DAYS. 48 tablet 1 12/20/19 25 Active methotrexate 2.5 MG Oral tabletIndicati ons:Erosive (osteo)arthrit is TAKE 4 TABLETS (10 MG TOTAL) BY MOUTH EVERY 7 DAYS. 48 tablet 1 05/15/19 25 025 Discontinued Active Problems Problem Noted Date Diagnosed Date Vitamin D deficiency, unspecified 05/15/2024 Assessment & Plan (06/10/2024 10:52 AM EDT): Check serum level to make sure that she does not require adjustment in supplementation to keep it in optimal serum range: 40-45 ng/ml. Degenerative arthritis of knee, bilateral 2023 Assessment & Plan (08/19/2023 9:12 PM EDT): Joint protection, energy conservation. Gentle, regular exercise routine. Avoid falls, injuries, overuse. Keep body weight in ideal range for her height. She may benefit from topical cream such as Arnica, Biofreeze, Aspercreme versus medicated patches such as salonpas, icy hot patch 2-3 times daily and if necessary at bedtime x 3 weeks. Formal PT referral provided close to her home. 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 Hold methotrexate whenever running fever, feeling sick or taking antibiotics. Complete entire course of antibiotics and wait at least 48 hours after the last dose of antibiotic to make sure that infection does not recur before returning to its usual weekly dosing schedule. Refrain from alcohol while taking methotrexate. Monitor for abdominal pain, nausea, diarrhea, breathing difficulty, chest pain or coughing and return for surveillance labs at least every 3 months-standing orders in [facility]. Make sure to inform any new ELVA MORIN NP about therapy with methotrexate particularly in emergency situations. Assessment & Plan (05/15/2024 3:43 PM EST): Take exactly as prescribed once a week along with folic acid 1 mg every day. Hold methotrexate whenever running fever, feeling sick or taking antibiotics. Complete entire course of antibiotics and wait at least 48 hours after the last dose of antibiotic to make sure that infection does not recur before returning to its usual weekly dosing schedule. Refrain from alcohol while taking methotrexate. Monitor for abdominal pain, nausea, diarrhea, breathing difficulty, chest pain or coughing and return for surveillance labs at least every 3 months-standing orders in [facility] [place]. Make sure to inform any new ELVA MORIN NP about therapy with methotrexate particularly in emergency situations. Assessment & Plan (11/15/2023 8:33 AM EDT): Take exactly as prescribed once a week along with folic acid 1 mg every day. Hold methotrexate whenever running fever, feeling sick or taking antibiotics. Complete entire course of antibiotics and wait at least 48 hours after the last dose of antibiotic to make sure that infection does not recur before returning to its usual weekly dosing schedule. Refrain from alcohol while taking methotrexate. Monitor for abdominal pain, nausea, diarrhea, breathing difficulty, chest pain or coughing and return for surveillance labs at least every 3 months-standing orders in [facility] [place]. Make sure to inform any new ELVA MORIN NP about therapy with methotrexate particularly in emergency situations. Assessment & Plan (08/19/2023 9:15 PM EDT): Take exactly as prescribed once a week along with folic acid 1 mg every day. Hold methotrexate whenever running fever, feeling sick or taking antibiotics. Complete entire course of antibiotics and wait at least 48 hours after the last dose of antibiotic to make sure that infection does not recur before returning to its usual weekly dosing schedule. Refrain from alcohol while taking methotrexate. Monitor for abdominal pain, nausea, diarrhea, breathing difficulty, chest pain or coughing and return for surveillance labs at least every 3 months-standing orders in [facility] [place]. Make sure to inform any new ELVA MORNI [employer] about therapy with methotrexate particularly in emergency situations. Synovial cyst of left popliteal space 02/02/2023 Assessment & Plan (02/04/2023 5:16 PM EST): Avoid falls, injuries, overuse such as frequent kneeling, stair climbing and heavy lifting. Frequent resting and applying ice pack and other foods to topical products may aid in resolution. If symptoms do not improve may need to consider direct ultrasound- guided aspiration and/or intra-articular steroid injection. Trochanteric bursitis of left hip 09/01/2022 Assessment & Plan (09/21/2022 10:03 AM EDT): Use warm pack versus warm shower prior to gentle, regular exercise routine- examples of exercises with pictures and detailed instructions printed for home use today. She may benefit from topical cream/gel such as Arnica, Biofreeze, Voltaren, blue emu versus medicated patches such as Salonpas, IcyHot patch to-3 times daily and if needed at bedtime. In case symptoms progress despite above measures formal PT and/or local steroid injection may be offered. Erosive (osteo)arthritis 02/13/2022 Assessment & Plan (11/12/2024 3:27 PM EDT): Stable erosive hands osteoarthritis without additional features suggestive for psoriatic arthritis at this time in her sacroiliac joints, hands or feet. Normal lab work argued against true inflammatory origin of her disease at this time. She agreed to add weekly methotrexate at 10 mg along with 1 mg daily folic acid after updating her vaccination schedule. She tolerates weekly methotrexate taken every Sunday and I asked her to monitor for any signs of GI upset, shortness of breath, chest pain or cough otherwise return with prior monitoring labs-standing orders in [facility] [place]. I explained to her that there is no guarantee that it will help her disease control without any side effects. Monitoring labs requested today and every 4 months-standing orders in [facility] [place] [place] Continue joint protection, energy conservation techniques. Gentle, regular exercise routine. Avoid falls, injuries, overuse. Keep body weight in ideal range for her height. She may benefit from topical cream such as Arnica, Biofreeze, Aspercreme versus medicated patches such as salonpas, icy hot patch 2-3 times daily and if necessary at bedtime x 3 weeks. Assessment & Plan (06/10/2024 10:51 AM EDT): Stable erosive hands osteoarthritis without additional features suggestive for psoriatic arthritis at this time in her sacroiliac joints, hands or feet. Normal lab work argued against true inflammatory origin of her disease at this time. She agreed to add weekly methotrexate at 10 mg along with 1 mg daily folic acid after updating her vaccination schedule. She tolerates weekly methotrexate taken every Sunday and I asked her to monitor for any signs of GI upset, shortness of breath, chest pain or cough otherwise return with prior monitoring labs-standing orders in [place] [place]. I explained to her that there is no guarantee that it will help her disease control without any side effects. Monitoring labs requested today and every 3 months-standing orders in [place] [place] Continue joint protection, energy conservation techniques. Gentle, regular exercise routine. Avoid falls, injuries, overuse. Keep body weight in ideal range for her height. She may benefit from topical cream such as Arnica, Biofreeze, Aspercreme versus medicated patches such as salonpas, icy hot patch 2-3 times daily and if necessary at bedtime x 3 weeks. Assessment & Plan (11/15/2023 9:01 AM EDT): Stable erosive hands osteoarthritis without additional features suggestive for psoriatic arthritis at this time in her sacroiliac joints, hands or feet. Normal lab work argued against true inflammatory origin of her disease at this time. She agreed to add weekly methotrexate at 10 mg along with 1 mg daily folic acid after updating her vaccination schedule. She tolerates weekly methotrexate taken every and I asked her to monitor for any signs of GI upset, shortness of breath, chest pain or cough otherwise return with prior monitoring labs-standing orders in [place] [place]. I explained to her that there is no guarantee that it will help her disease control without any side effects. Continue joint protection, energy conservation techniques. Carefully continue Plaquenil 200 mg twice daily in addition to intermittent meloxicam 15 mg daily with food for disease flares. Provided labs are stable from today's checkup she may stop taking Plaquenil as she wishes. Get yearly influenza and COVID-19 newest booster by mid to end December 2023 and hold 2 weekly methotrexate doses after vaccination. Gentle, regular exercise routine. Avoid falls, injuries, overuse. Keep body weight in ideal range for her height. She may benefit from topical cream such as Arnica, Biofreeze, Aspercreme versus medicated patches such as salonpas, icy hot patch 2-3 times daily and if necessary at bedtime x 3 weeks. Assessment & Plan (08/19/2023 9:10 PM EDT): Stable erosive hands osteoarthritis without additional features suggestive for psoriatic arthritis at this time in her sacroiliac joints, hands or feet. Normal lab work argued against true inflammatory origin of her disease at this time. She agreed to add weekly methotrexate at 10 mg along with 1 mg daily folic acid after updating her vaccination schedule. She tolerates weekly methotrexate taken every Sunday and I asked her to monitor for any signs of GI upset, shortness of breath, chest pain or cough otherwise return with prior monitoring labs-standing orders in [place] [place]. I explained to her that there is no guarantee that it will help her disease control without any side effects. Continue joint protection, energy conservation techniques. Carefully continue Plaquenil 200 mg twice daily in addition to intermittent meloxicam 15 mg daily with food for disease flares. Gentle, regular exercise routine. Avoid falls, injuries, overuse. Keep body weight in ideal range for her height. She may benefit from topical cream such as Arnica, Biofreeze, Aspercreme versus medicated patches such as salonpas, icy hot patch 2-3 times daily and if necessary at bedtime x 3 weeks. Assessment & Plan (02/02/2023 9:10 AM EST): Stable erosive hands osteoarthritis without additional features suggestive for psoriatic arthritis at this time in her sacroiliac joints, hands or feet. Normal lab work argued against true inflammatory origin of her disease at this time. I requested new labs and in case it reveals inflammatory process I am offering her addition of another disease modifying antirheumatic drug such as methotrexate, sulfasalazine or Arava (leflunomide). I explained to her that there is no guarantee that it will help her disease control without any side effects. I have asked her to read the pamphlets and write her questions for discussing at next visit or earlier if necessary. Continue joint protection, energy conservation techniques. Carefully continue Plaquenil 200 mg twice daily in addition to intermittent meloxicam 15 mg daily with food for disease flares. Gentle, regular exercise routine. Avoid falls, injuries, overuse. Keep body weight in ideal range for her height. She may benefit from topical cream such as Arnica, Biofreeze, Aspercreme versus medicated patches such as salonpas, icy hot patch 2-3 times daily and if necessary at bedtime x 3 weeks. Assessment & Plan (09/01/2022 8:55 AM EDT): Stable erosive hands osteoarthritis without additional features suggestive for psoriatic arthritis at this time in her sacroiliac joints, hands or feet. Normal lab work argued against true inflammatory origin of her disease at this time. I requested new labs and in case it reveals inflammatory process I am offering her addition of another disease modifying antirheumatic drug such as methotrexate, sulfasalazine or Arava (leflunomide). I explained to her that there is no guarantee that it will help her disease control without any side effects. I have asked her to read the pamphlets and write her questions for discussing at next visit or earlier if necessary. Continue joint protection, energy conservation techniques. Carefully continue Plaquenil 200 mg twice daily in addition to intermittent meloxicam 15 mg daily with food for disease flares. Gentle, regular exercise routine. Avoid falls, injuries, overuse. Keep body weight in ideal range for her height. She may benefit from topical cream such as Arnica, Biofreeze, Aspercreme versus medicated patches such as salonpas, icy hot patch 2-3 times daily and if necessary at bedtime x 3 weeks. Assessment & Plan (03/13/2022 8:37 PM EST): Stable erosive hands osteoarthritis without additional features suggestive for psoriatic arthritis at this time in her sacroiliac joints, hands or feet. Normal lab work argued against true inflammatory origin of her disease at this time. I requested new labs and in case it reveals inflammatory process I am offering her addition of another disease modifying antirheumatic drug such as methotrexate, sulfasalazine or Arava (leflunomide). I explained to her that there is no guarantee that it will help her disease control without any side effects. I have asked her to read the pamphlets and write her questions for discussing at next visit or earlier if necessary. Continue joint protection, energy conservation techniques. Carefully continue Plaquenil 200 mg twice daily in addition to intermittent meloxicam 15 mg daily with food for disease flares. Gentle, regular exercise routine. Avoid falls, injuries, overuse. Keep body weight in ideal range for her height. She may benefit from topical cream such as Arnica, Biofreeze, Aspercreme versus medicated patches such as salonpas, icy hot patch 2-3 times daily and if necessary at bedtime x 3 weeks. Psoriasis 10/17/2021 Assessment & Plan (02/04/2023 5:14 PM EST): Limited to scalp. To make sure that she does not suffer from psoriatic arthritis I took the liberty of getting x-rays of her sacroilliac joints, hands and feet that returned reassuring-free of signs of inflammatory arthritis at this time. Assessment & Plan (11/05/2021 8:50 PM EDT): Limited to scalp. To make sure that she does not suffer from psoriatic arthritis I took the liberty of getting x-rays of her sacroilliac joints, hands and feet. Advice given about COVID-19 virus infection 05/19 Assessment & Plan (06/16/2021 9:29 AM EDT): I reviewed with Sylvie that she will be due for 2nd COVID-19 vaccine booster dose 5 mths after booster dose that she received on 01/26/2021. Continue diligent hand hygiene Avoid sick contacts. Rotator cuff arthropathy of right shoulder 04/19 Assessment & Plan (06/16/2021 8:53 AM EDT): Use warm packs versus warm shower prior to gentle, regular exercise routine- examples of exercises with detailed instructions and pictures printed for home use today. If not better consider formal PT and if necessary local steroid injection. Assessment & Plan (04/22/2020 2:45 PM EST): Use warm packs versus warm shower prior to gentle, regular exercise routine- examples of exercises with detailed instructions and pictures printed for home use today. If not better consider formal PT and if necessary local steroid injection. Spinal enthesopathy of lumbosacral region 2019 Assessment & Plan (11/05/2021 8:48 PM EDT): Avoid heavy lifting, bending, stooping, sudden turns. Use warm packs prior to gentle regular stretching and core muscle strengthening. Make sure to keep body weight in ideal range for her height. Assessment & Plan (09/17/2019 8:33 PM EDT): Procedure: After an informed oral consent, under sterile conditions using Ethyl chloride spray for local anesthesia I have injected 40 mg DepoMedrol and 2 cc 1% Lidocaine into Left lumbar enthesis uneventfully. Details of post-procedure care were explained to the patient in the office and given in writing. Excuse from work for today and tomorrow provided. Avoid heavy lifting, bending, stooping and sudden turns. Chronic midline low back pain without sciatica 0 10/15/2018 Assessment & Plan (11/15/2023 8:33 AM EDT): Avoid falls, injuries, overuse, bending, stooping, heavy lifting and sudden turns. Use warm packs versus warm shower prior to regular core muscle strengthening exercises. Work on keeping her body weight as close as possible to ideal range for her height. Use topical cream versus patch as needed. She may benefit from regular warm pool therapy. Call if worse or with questions. Assessment & Plan (08/17/2023 3:23 PM EDT): Avoid falls, injuries, overuse, bending, stooping, heavy lifting and sudden turns. Use warm packs versus warm shower prior to regular core muscle strengthening exercises. Work on keeping her body weight as close as possible to ideal range for her height. Use topical cream versus patch as needed. She may benefit from regular warm pool therapy. Call if worse or with questions. Assessment & Plan (02/13/2022 10:08 AM EST): Avoid falls, injuries, overuse, bending, stooping, heavy lifting and sudden turns. Use warm packs versus warm shower prior to regular core muscle strengthening exercises. Work on keeping her body weight as close as possible to ideal range for her height. Use topical cream versus patch as needed. She may benefit from regular warm pool therapy. Call if worse or with questions. Assessment & Plan (10/17/2021 10:14 AM EDT): Avoid falls, injuries, overuse, bending, stooping, heavy lifting and sudden turns. Use warm packs versus warm shower prior to regular core muscle strengthening exercises. Work on keeping her body weight as close as possible to ideal range for her height. Use topical cream versus patch as needed. She may benefit from regular warm pool therapy. Call if worse or with questions. Assessment & Plan (06/16/2021 8:54 AM EDT): Avoid falls, injuries, overuse, bending, stooping, heavy lifting and sudden turns. Use warm packs versus warm shower prior to regular core muscle strengthening exercises. Work on keeping her body weight as close as possible to ideal range for her height. Use topical cream versus patch as needed. She may benefit from regular warm pool therapy. Call if worse or with questions. Assessment & Plan (12/03/2020 11:13 AM EDT): Avoid falls, injuries, overuse, bending, stooping, heavy lifting and sudden turns. Use warm packs versus warm shower prior to regular core muscle strengthening exercises. Work on keeping her body weight as close as possible to ideal range for her height. Use topical cream versus patch as needed. She may benefit from regular warm pool therapy. Call if worse or with questions. Assessment & Plan (09/02/2020 11:08 AM EDT): Avoid falls, injuries, overuse, bending, stooping, heavy lifting and sudden turns. Use warm packs versus warm shower prior to regular core muscle strengthening exercises. Work on keeping her body weight as close as possible to ideal range for her height. Use topical cream versus patch as needed. She may benefit from regular warm pool therapy. Call if worse or with questions. Assessment & Plan (04/19/2020 8:58 AM EST): Avoid falls, injuries, overuse, bending, stooping, heavy lifting and sudden turns. Use warm packs versus warm shower prior to regular core muscle strengthening exercises. Work on keeping her body weight as close as possible to ideal range for her height. Use topical cream versus patch as needed. She may benefit from regular warm pool therapy. Call if worse or with questions. Assessment & Plan (09/17/2019 8:34 PM EDT): Avoid falls, injuries, overuse, bending, stooping, heavy lifting and sudden turns. Use warm packs versus warm shower prior to regular core muscle strengthening exercises. Work on keeping her body weight as close as possible to ideal range for her height. Use topical cream versus patch as needed. She may benefit from regular warm pool therapy. Call if worse or with questions. Assessment & Plan (11/03/2018 9:36 AM EDT): Avoid falls, injuries, overuse, bending, stooping, heavy lifting and sudden turns. Use warm packs versus warm shower prior to regular core muscle strengthening exercises. Work on keeping her body weight as close as possible to ideal range for her height. Use topical cream versus patch as needed. She may benefit from regular warm pool therapy. Call if worse or with questions. Postmenopausal 10/15/2018 Assessment & Plan (11/03/2018 9:35 AM EDT): Proper calcium and vitamin D supplementation. Daily weightbearing exercises. Fall and fracture prevention strategies. NSAID long-term use 05/24/2018 Assessment & Plan (11/12/2024 2:58 PM EDT): Take the lowest dose, with least frequency, for shortest time. Remember to take it always with food. Favor topical over oral preparations. Assessment & Plan (05/15/2024 3:43 PM EST): Take the lowest dose, with least frequency, for shortest time. Remember to take it always with food. Favor topical over oral preparations. Assessment & Plan (11/15/2023 8:33 AM EDT): Take the lowest dose, with least frequency, for shortest time. Remember to take it always with food. Favor topical over oral preparations. Assessment & Plan (08/17/2023 3:23 PM EDT): Take the lowest dose, with least frequency, for shortest time. Remember to take it always with food. Favor topical over oral preparations. Assessment & Plan (02/02/2023 9:13 AM EST): Take the lowest dose, with least frequency, for shortest time. Remember to take it always with food. Favor topical over oral preparations. Assessment & Plan (09/01/2022 8:56 AM EDT): Take the lowest dose, with least frequency, for shortest time. Remember to take it always with food. Favor topical over oral preparations. Assessment & Plan (02/13/2022 10:09 AM EST): Take the lowest dose, with least frequency, for shortest time. Remember to take it always with food. Favor topical over oral preparations. Assessment & Plan (10/17/2021 10:15 AM EDT): Take the lowest dose, with least frequency, for shortest time. Remember to take it always with food. Favor topical over oral preparations. Assessment & Plan (06/16/2021 8:54 AM EDT): Take the lowest dose, with least frequency, for shortest time. Remember to take it always with food. Favor topical over oral preparations. Assessment & Plan (12/03/2020 11:12 AM EDT): Take the lowest dose, with least frequency, for shortest time. Remember to take it always with food. Favor topical over oral preparations. Assessment & Plan (09/02/2020 11:08 AM EDT): Take the lowest dose, with least frequency, for shortest time. Remember to take it always with food. Favor topical over oral preparations. Assessment & Plan (04/19/2020 8:57 AM EST): Take the lowest dose, with least frequency, for shortest time. Remember to take it always with food. Favor topical over oral preparations. Assessment & Plan (09/17/2019 8:34 PM EDT): Take the lowest dose, with least frequency, for shortest time. Remember to take it always with food. Favor topical over oral preparations. Assessment & Plan (04/10/2019 11:29 AM EST): Take the lowest dose, with least frequency, for shortest time. Remember to take it always with food. Favor topical over oral preparations. Assessment & Plan (11/03/2018 9:37 AM EDT): Take the lowest dose, with least frequency, for shortest time. Remember to take it always with food. Favor topical over oral preparations. Assessment & Plan (08/18/2018 6:53 PM EDT): Take the lowest dose, with least frequency, for shortest time. Remember to take it always with food. Favor topical over oral preparations. Assessment & Plan (06/03/2018 8:42 AM EDT): Take the lowest dose, with least frequency, for shortest time. Remember to take it always with food. Favor topical over oral preparations. Primary osteoarthritis involving multiple joints 05/24/2018 Assessment & Plan (11/12/2024 2:58 PM EDT): Due to her concern about possible psoriasis after seen radio script writer I requested new set of lab work and x-rays to look for any interval changes to support that notion. Based on her history and physical examination today I did not find a lot of support for it because she has no inflammatory lower back pain, no sausage fingers or toes, no nail pitting. I have explained to Sylvie that not every patient who has psoriasis has psoriatic arthritis. Majority of patients with psoriasis= 70% do not develop psoriatic arthritis. Joint protection, energy conservation. Continue gentle, regular exercises as educated in OT & PT. Avoid falls, injuries, overuse. Use splints and assistive devices as needed. Topical cream versus patch 2-3 times daily and if necessary at bedtime. Call if worse or with questions. Due to her concern about possible psoriasis after seen radio script writer I requested new set of lab work and x-rays to look for any interval changes to support that notion. Based on her history and physical examination today I did not find a lot of support for it because she has no inflammatory lower back pain, no sausage fingers or toes, no nail pitting. I have explained to Sylvie that not every patient who has psoriasis has psoriatic arthritis. Majority of patients with psoriasis= 70% do not develop psoriatic arthritis. Joint protection, energy conservation. Continue gentle, regular exercises as educated in OT & PT. Avoid falls, injuries, overuse. Use splints and assistive devices as needed. Topical cream versus patch 2-3 times daily and if necessary at bedtime. Call if worse or with questions. Assessment & Plan (05/15/2024 3:44 PM EST): Due to her concern about possible psoriasis after seen radio script writer I requested new set of lab work and x-rays to look for any interval changes to support that notion. Based on her history and physical examination today I did not find a lot of support for it because she has no inflammatory lower back pain, no sausage fingers or toes, no nail pitting. I have explained to Sylvie that not every patient who has psoriasis has psoriatic arthritis. Majority of patients with psoriasis= 70% do not develop psoriatic arthritis. Joint protection, energy conservation. Continue gentle, regular exercises as educated in OT & PT. Avoid falls, injuries, overuse. Use splints and assistive devices as needed. Topical cream versus patch 2-3 times daily and if necessary at bedtime. Call if worse or with questions. Due to her concern about possible psoriasis after seen radio script writer I requested new set of lab work and x-rays to look for any interval changes to support that notion. Based on her history and physical examination today I did not find a lot of support for it because she has no inflammatory lower back pain, no sausage fingers or toes, no nail pitting. I have explained to Sylvie that not every patient who has psoriasis has psoriatic arthritis. Majority of patients with psoriasis= 70% do not develop psoriatic arthritis. Joint protection, energy conservation. Continue gentle, regular exercises as educated in OT & PT. Avoid falls, injuries, overuse. Use splints and assistive devices as needed. Topical cream versus patch 2-3 times daily and if necessary at bedtime. Call if worse or with questions. Assessment & Plan (11/15/2023 8:32 AM EDT): Due to her concern about possible psoriasis after seen radio script writer I requested new set of lab work and x-rays to look for any interval changes to support that notion. Based on her history and physical examination today I did not find a lot of support for it because she has no inflammatory lower back pain, no sausage fingers or toes, no nail pitting. I have explained to Sylvie that not every patient who has psoriasis has psoriatic arthritis. Majority of patients with psoriasis= 70% do not develop psoriatic arthritis. Joint protection, energy conservation. Continue gentle, regular exercises as educated in OT & PT. Avoid falls, injuries, overuse. Use splints and assistive devices as needed. Topical cream versus patch 2-3 times daily and if necessary at bedtime. Call if worse or with questions. Assessment & Plan (02/04/2023 5:13 PM EST): Due to her concern about possible psoriasis after seen radio script writer I requested new set of lab work and x-rays to look for any interval changes to support that notion. Based on her history and physical examination today I did not find a lot of support for it because she has no inflammatory lower back pain, no sausage fingers or toes, no nail pitting. I have explained to Sylvie that not every patient who has psoriasis has psoriatic arthritis. Majority of patients with psoriasis= 70% do not develop psoriatic arthritis. Joint protection, energy conservation. Continue gentle, regular exercises as educated in OT & PT. Avoid falls, injuries, overuse. Use splints and assistive devices as needed. Topical cream versus patch 2-3 times daily and if necessary at bedtime. Call if worse or with questions. Assessment & Plan (09/01/2022 8:56 AM EDT): Due to her concern about possible psoriasis after seen radio script writer I requested new set of lab work and x-rays to look for any interval changes to support that notion. Based on her history and physical examination today I did not find a lot of support for it because she has no inflammatory lower back pain, no sausage fingers or toes, no nail pitting. I have explained to Sylvie that not every patient who has psoriasis has psoriatic arthritis. Majority of patients with psoriasis= 70% do not develop psoriatic arthritis. Joint protection, energy conservation. Continue gentle, regular exercises as educated in OT & PT. Avoid falls, injuries, overuse. Use splints and assistive devices as needed. Topical cream versus patch 2-3 times daily and if necessary at bedtime. Call if worse or with questions. Assessment & Plan (03/13/2022 8:34 PM EST): Due to her concern about possible psoriasis after seen radio script writer I requested new set of lab work and x-rays to look for any interval changes to support that notion. Based on her history and physical examination today I did not find a lot of support for it because she has no inflammatory lower back pain, no sausage fingers or toes, no nail pitting. I have explained to Sylvie that not every patient who has psoriasis has psoriatic arthritis. Majority of patients with psoriasis= 70% do not develop psoriatic arthritis. Joint protection, energy conservation. Continue gentle, regular exercises as educated in OT & PT. Avoid falls, injuries, overuse. Use splints and assistive devices as needed. Topical cream versus patch 2-3 times daily and if necessary at bedtime. Call if worse or with questions. Assessment & Plan (11/05/2021 8:47 PM EDT): Due to her concern about possible psoriasis after seen radio script writer I requested new set of lab work and x-rays to look for any interval changes to support that notion. Based on her history and physical examination today I did not find a lot of support for it because she has no inflammatory lower back pain, no sausage fingers or toes, no nail pitting. I have explained to Sylvie that not every patient who has psoriasis has psoriatic arthritis. Majority of patients with psoriasis= 70% do not develop psoriatic arthritis. Joint protection, energy conservation. Continue gentle, regular exercises as educated in OT & PT. Avoid falls, injuries, overuse. Use splints and assistive devices as needed. Topical cream versus patch 2-3 times daily and if necessary at bedtime. Call if worse or with questions. Assessment & Plan (06/16/2021 9:27 AM EDT): Joint protection, energy conservation. Continue gentle, regular exercises as educated in OT & PT. Avoid falls, injuries, overuse. Use splints and assistive devices as needed. Topical cream versus patch 2-3 times daily and if necessary at bedtime. Call if worse or with questions. Assessment & Plan (12/03/2020 11:11 AM EDT): Joint protection, energy conservation. Continue gentle, regular exercises as educated in OT. Avoid falls, injuries, overuse. Use splints and assistive devices as needed. Topical cream versus patch 2-3 times daily and if necessary at bedtime. I request that new set of x-rays to check for interval changes since 2019. Call if worse or with questions. Assessment & Plan (09/14/2020 7:34 AM EDT): Joint protection, energy conservation. Continue gentle, regular exercises as educated in OT. Avoid falls, injuries, overuse. Use splints and assistive devices as needed. Topical cream versus patch 2-3 times daily and if necessary at bedtime. I request that new set of x-rays to check for interval changes since 2019. Call if worse or with questions. Assessment & Plan (04/19/2020 8:57 AM EST): Joint protection, energy conservation. Continue gentle, regular exercises as educated in OT. Avoid falls, injuries, overuse. Use splints and assistive devices as needed. Topical cream versus patch 2-3 times daily and if necessary at bedtime. Call if worse or with questions. Assessment & Plan (09/17/2019 8:32 PM EDT): Joint protection, energy conservation. Continue gentle, regular exercises as educated in OT. Avoid falls, injuries, overuse. Use splints and assistive devices as needed. Topical cream versus patch 2-3 times daily and if necessary at bedtime. Call if worse or with questions. Assessment & Plan (04/10/2019 11:26 AM EST): Joint protection, energy conservation. Continue gentle, regular exercises as educated in OT. Avoid falls, injuries, overuse. Use splints and assistive devices as needed. Topical cream versus patch 2-3 times daily and if necessary at bedtime. Call if worse or with questions. Assessment & Plan (11/03/2018 9:34 AM EDT): Joint protection, energy conservation. Continue gentle, regular exercises as educated in OT. Avoid falls, injuries, overuse. Use splints and assistive devices as needed. Topical cream versus patch 2-3 times daily and if necessary at bedtime. Call if worse or with questions. Assessment & Plan (08/18/2018 6:53 PM EDT): Joint protection, energy conservation. Continue gentle, regular exercises as educated in OT. Avoid falls, injuries, overuse. Use splints and assistive devices as needed. Topical cream versus patch 2-3 times daily and if necessary at bedtime. Call if worse or with questions. Due to progressive changes on hands x-ray and positive SHRUTI I have offered Sylvie disease modifying antirheumatic medication-Plaquenil that is described in literature to reduce the rate of progression, help with fatigue, morning stiffness and she is interested in starting it. I have asked her to start carefully with 1 pill daily X 14 days and if no side effects carefully increase to 2 pills daily. She is informed that it takes 3-4 months for full effect. She is asked to use daily sun protection all year round while on Plaquenil due to its sensitizing properties to sunrise. Assessment & Plan (06/03/2018 8:41 AM EDT): Joint protection, energy conservation. Continue gentle, regular exercises as educated in OT. Avoid falls, injuries, overuse. Use splints and assistive devices as needed. Topical cream versus patch 2-3 times daily and if necessary at bedtime. Call if worse or with questions. Bilateral hand pain 03/22/2018 Assessment & Plan (08/19/2023 9:13 PM EDT): Continue gentle, regular exercises as instructed by OT. Follow joint protection, energy conservation techniques. Use splints and assistive devices for extended activities and increased pain. Topical Arnica, Biofreeze versus Voltaren gel may provide additional benefit. At times her flare may carefully take meloxicam but avoid taking it together with weekly methotrexate dose that she takes every Sunday. Knee pain, bilateral 03/22/2018 Pain of right heel 03/22/2018 Assessment & Plan (12/15/2020 4:09 PM EDT): Well fitting, supportive shoes. Gentle, regular stretching after warm pack or warm shower. Topical Voltaren versus Arnica versus Biofreeze versus 2-3 times daily and if needed at bedtime x 3 weeks. Alternatively she can use Lidoderm patch for 12 hours on and 12 hours off. Chronic fatigue 03/22/2018 SHRUTI positive 03/22/2018 Assessment & Plan (06/16/2021 9:01 AM EDT): Upon reviewing labs from 01/18/2018 at [facility] we found isolated SHRUTI therefore I explained to Sylvie that she does not have any major systemic rheumatic diseases at this time however she may be at risk for developing 1 of the diseases at some point in the future. To reduce the risk of progression to any of the specific diseases associated with positive SHRUTI she is taking Plaquenil without side effects. She is asked to keep up-to-date with age-appropriate screenings and preventive strategies. Avoid sick contacts. Use daily sun protection all year round while on Plaquenil. Assessment & Plan (12/15/2020 4:15 PM EDT): Upon reviewing labs from 01/18/2018 at [facility] we found isolated SHRUTI therefore I explained to Sylvie that she does not have any major systemic rheumatic diseases at this time however she may be at risk for developing 1 of the diseases at some point in the future. To reduce the risk of progression to any of the specific diseases associated with positive SHRUTI she is taking Plaquenil without side effects. She is asked to keep up-to-date with age-appropriate screenings and preventive strategies. Get yearly influenza vaccine by December 2020. Avoid sick contacts. Use daily sun protection all year round while on Plaquenil. Assessment & Plan (09/02/2020 11:08 AM EDT): Upon reviewing labs from 03/27/2018 at [facility] we found isolated SHRUTI therefore I explained to Sylvie that she does not have any major systemic rheumatic diseases at this time however she may be at risk for developing 1 of the diseases at some point in the future. To reduce the risk of progression to any of the specific diseases associated with positive SHRUTI she is taking Plaquenil without side effects. She is asked to keep up-to-date with age-appropriate screenings and preventive strategies. Avoid sick contacts. Use daily sun protection all year round while on Plaquenil. Assessment & Plan (04/19/2020 8:58 AM EST): Upon reviewing labs from 03/27/2018 at [facility] we found isolated SHRUTI therefore I explained to Sylvie that she does not have any major systemic rheumatic diseases at this time however she may be at risk for developing 1 of the diseases at some point in the future. To reduce the risk of progression to any of the specific diseases associated with positive SHRUTI she is taking Plaquenil without side effects. She is asked to keep up-to-date with age-appropriate screenings and preventive strategies. Avoid sick contacts. Use daily sun protection all year round while on Plaquenil. Assessment & Plan (09/17/2019 8:32 PM EDT): Upon reviewing labs from 03/27/2018 at [facility] we found isolated SHRUTI therefore I explained to Sylvie that she does not have any major systemic rheumatic diseases at this time however she may be at risk for developing 1 of the diseases at some point in the future. To reduce the risk of progression to any of the specific diseases associated with positive SHRUTI she is taking Plaquenil without side effects. She is asked to keep up-to-date with age-appropriate screenings and preventive strategies. Avoid sick contacts. Use daily sun protection all year round while on Plaquenil. Assessment & Plan (04/10/2019 11:27 AM EST): Upon reviewing labs from 03/27/2018 at [facility] we found isolated SHRUTI therefore I explained to Sylvie that she does not have any major systemic rheumatic diseases at this time however she may be at risk for developing 1 of the diseases at some point in the future. To reduce the risk of progression to any of the specific diseases associated with positive SHRUTI she is taking Plaquenil without side effects. She is asked to keep up-to-date with age-appropriate screenings and preventive strategies. Avoid sick contacts. Use daily sun protection all year round while on Plaquenil. Assessment & Plan (11/03/2018 9:33 AM EDT): Upon reviewing labs from 03/27/2018 at [facility] we found isolated SHRUTI therefore I explained to Sylvie that she does not have any major systemic rheumatic diseases at this time however she may be at risk for developing 1 of the diseases at some point in the future. To reduce the risk of progression to any of the specific diseases associated with positive SHRUTI she is taking Plaquenil without side effects. She is asked to keep up-to-date with age-appropriate screenings and preventive strategies. Avoid sick contacts. Use daily sun protection all year round while on Plaquenil. Assessment & Plan (08/18/2018 6:55 PM EDT): Upon reviewing labs from 03/27/2018 at [facility] we found isolated SHRUTI therefore I explained to Sylvie that she does not have any major systemic rheumatic diseases at this time however she may be at risk for developing 1 of the diseases at some point in the future. She is asked to keep up-to-date with age-appropriate screenings and preventive strategies. Avoid sick contacts. Use daily sun protection all year round while on Plaquenil. Assessment & Plan (06/03/2018 8:40 AM EDT): I reviewed with patient labs from 03/28/18 at [facility] that revealed no additional abnormalities except for isolated SHRUTI therefore I explained to Sylvie that she does not have any major systemic rheumatic diseases at this time however she may be at risk for developing 1 of the diseases at some point in the future. I provided her with pamphlet on disease modifying antirheumatic medication (DMARD) = Plaquenil that is described in literature as an immune modifier capable of slowing the rate of progression to defined systemic rheumatic disease and if already developed reducing the number and severity of flares, helping with fatigue, joint pain and stiffness in addition to improving cardiovascular benefits by modifying lipid profile. I briefly reviewed with her the fact that it takes about 3-4 months for full effect and in rare cases after long-term use may cause retinal toxicity. Her next eye exam is planned for July 2018 and I asked her to discuss it with her industrial design intern regarding contraindications if interested to start it. Dyspnea 03/22/2018 Resolved Problems Problem Noted Date Diagnosed Date Resolved Date Chronic left-sided low back pain with left-sided sciatica 04/10/2019 09/17/2019 Assessment & Plan (09/17/2019 8:33 PM EDT): Avoid falls, injuries, overuse, bending, stooping, heavy lifting and sudden turns. Use warm packs versus warm shower prior to regular core muscle strengthening exercises. Work on keeping her body weight as close as possible to ideal range for her height. Use topical cream versus patch as needed . She may benefit from regular warm pool therapy. Call if worse or with questions. Assessment & Plan (04/10/2019 11:27 AM EST): Avoid falls, injuries, overuse, bending, stooping, heavy lifting and sudden turns. Use warm packs versus warm shower prior to regular core muscle strengthening exercises. Work on keeping her body weight as close as possible to ideal range for her height. Use topical cream versus patch as needed . She may benefit from regular warm pool therapy. Call if worse or with questions. Long-term use of Plaquenil 10/15/2018 0 11/12/2024 Assessment & Plan (05/15/2024 3:43 PM EST): Take exactly as prescribed. Daily sun protection all year round. Follow with industrial design intern at least once every 12 months. Assessment & Plan (11/15/2023 8:33 AM EDT): Take exactly as prescribed. Daily sun protection all year round. Follow with industrial design intern at least once every 12 months. Assessment & Plan (08/19/2023 9:14 PM EDT): Take exactly as prescribed. Daily sun protection all year round. Follow with industrial design intern at least once every 12 months. Assessment & Plan (02/02/2023 9:13 AM EST): Take exactly as prescribed. Daily sun protection all year round. Follow with industrial design intern at least once every 12 months. Get labs monitoring safety and efficacy today and prior to next visit in 4 months. Assessment & Plan (09/01/2022 8:56 AM EDT): Take exactly as prescribed. Daily sun protection all year round. Follow with industrial design intern at least once every 12 months. Get labs monitoring safety and efficacy today and prior to next visit in 4 months. Assessment & Plan (02/13/2022 10:09 AM EST): Take exactly as prescribed. Daily sun protection all year round. Follow with industrial design intern at least once every 12 months. Get labs monitoring safety and efficacy today and prior to next visit in 4 months. Assessment & Plan (10/17/2021 10:14 AM EDT): Take exactly as prescribed. Daily sun protection all year round. Follow with industrial design intern at least once every 12 months. Get labs monitoring safety and efficacy today and prior to next visit in 4 months. Assessment & Plan (06/16/2021 8:54 AM EDT): Take exactly as prescribed. Daily sun protection all year round. Follow with industrial design intern at least once every 12 months. Get labs monitoring safety and efficacy today and prior to next visit in 4 months. Assessment & Plan (12/03/2020 11:12 AM EDT): Take exactly as prescribed. Daily sun protection all year round. Follow with industrial design intern at least once every 12 months. Get labs monitoring safety and efficacy today and prior to next visit in 4 months. Assessment & Plan (09/02/2020 11:08 AM EDT): Take exactly as prescribed. Daily sun protection all year round. Follow with industrial design intern at least once every 12 months. Get labs monitoring safety and efficacy today and prior to next visit in 4 months. Assessment & Plan (04/19/2020 8:57 AM EST): Take exactly as prescribed. Daily sun protection all year round. Follow with industrial design intern at least once every 12 months. Get labs monitoring safety and efficacy today and prior to next visit in 4 months. Assessment & Plan (09/17/2019 8:35 PM EDT): Take exactly as prescribed. Daily sun protection all year round. Follow with industrial design intern at least once every 12 months. Get labs monitoring safety and efficacy today and prior to next visit in 4 months. Assessment & Plan (04/10/2019 11:28 AM EST): Take exactly as prescribed. Daily sun protection all year round. Follow with industrial design intern at least once every 12 months. Get labs monitoring safety and efficacy today and prior to next visit in 4 months. Assessment & Plan (11/03/2018 9:40 AM EDT): Take exactly as prescribed. Daily sun protection all year round. Follow with industrial design intern at least once every 12 months. Get labs monitoring safety and efficacy today and prior to next visit in 4 months. Aspirin long-term use 03/22/20182020 Assessment & Plan (11/03/2018 9:36 AM EDT): Avoid falls, injuries and cuts. Monitor for excessive bruising and bleeding. Assessment & Plan (08/18/2018 6:53 PM EDT): Avoid falls, injuries and cuts. Monitor for excessive bruising and bleeding. Assessment & Plan (06/03/2018 8:42 AM EDT): Avoid falls, injuries and cuts. Monitor for excessive bruising and bleeding. Encounters Date Type Department Care Team Description 12/19/2024 Telephone [facility] Rheumatology [address] [place] [address] Carol Lu MD Medication Refill 11/12/2024 3:16 PM EDT - 11/12/2024 11:59 PM EDT Hospital Encounter [facility] [address] [place] [address] Carol Lu MD Discharge Disposition: Home or Self Care 11/12/2024 2:30 PM EDT Office Visit [facility] Rheumatology [address] [place] [address] Carol Lu MD Erosive (osteo)arthritis (Primary Dx); Primary osteoarthritis involving multiple joints; 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, mcfp, current use; NSAID long-term use from Last 3 Months Immunizations Immunization Administration Dates Next Due COVID-19 (Pre-01/08) Pfizer Vaccine, mRNA, PF Hepatitis B Adult 09/02/2010 Pneumococcal conjugate PCV20 05/04/2023 Tdap 05/04/2023,10/23/2011 Zoster recombinant 05/08/2023 Family History Medical History Relation Comments Cancer Brother Cancer Father Glaucoma Mother Relation Status Comments Brother Alive Father Mother Alive Social History Tobacco Use Types Packs/Day Years Used Date Smoking Tobacco: Never Smokeless Tobacco: Never Tobacco Cessation:Counseling Given: Not Answered Education Answer Date Recorded Are you interested [...] on file Sexual Orientation Not on file Last Filed Vital Signs Vital Sign Reading Time Taken Comments Blood Pressure 100/62 11/12/2024 2:28 PM EDT Pulse 82 11/12/2024 2:28 PM EDT Temperature 35.9 C (96.7 F) 04/19/2020 8:40 AM EST Respiratory Rate - - Oxygen Saturation 96% 11/12/2024 2:28 PM EDT Inhaled Oxygen Concentration - - Weight 62.6 kg (138 lb) 11/12/2024 2:28 PM EDT Height 160 cm (5' 3 ) 11/12/2024 2:28 PM EDT Body Mass Index 24.45 11/12/2024 2:28 PM EDT Plan of Treatment Upcoming Encounters Date Type Department Care Team (Late st Contact Info) Description 04/20/2025 11:00 AM EST Office Visit [facility] Rheumatology [address] [place] [address] Carol Lu MD [address] [facility], [address] [place] [address] Health Maintenance Due Date Last Done Comments DEPRESSION SCREENING 1975 HIV ONE-TIME SCREENING (18-65 YEARS) 06/04/1981 COLOGUARD 06/04/2008 COLONOSCOPY 06/04/2008 COLORECTAL CANCER SCREENING 06/04/2008 FIT TEST 06/04/2008 FOBT 06/04/2008 SIGMOIDOSCOPY 06/04/2008 VIRTUAL COLONOSCOPY 06/04/2008 RSV VACCINE (1 - Risk 50-74 years 1-dose series) 06/04/2013 PAP SMEAR 06/12/2021 06/12/2018 LIPID PANEL 09/17/2023 09/16/2018, 01/02/2018 INFLUENZA VACCINE (#1) 2024 , 01/18/2023, 12/14/2021, Additional history exists COVID-19 VACCINE (2024- season) 2024 02/28/2023, 01/18/2022, 01/26/2021, Additional history exists MAMMOGRAM 08/01/2026 08/01/2024, 07/17, 07/23/2023, Additional history exists Adult Td,Tdap Booster 05/04/2033 05/04/2023, 012 HEPATITIS C SCREENING Completed 03/28/2018 PNEUMOCOCCAL VACCINES (50+ years) Completed 05/04/2023 ZOSTER VACCINES Completed 07/10/2023, 05/08/2023 SMOKING STATUS SCREENING (Once After 26 Yrs) Completed 11/12/2024 HEPATITIS A VACCINES Aged Out No long er eligible based on patient's age to complete this topic HIB VACCINES Aged Out No longer eligi ble based on patient's age to complete this topic MENINGOCOCCAL VACCINES (ACWY) Aged Out No longer eligible based on patient's age to complete this topic MENINGOCOCCAL VACCINES (B) Aged Out N o longer eligible based on patient's age to complete this topic Medical Devices Not on file Procedures Procedure Name Priority Date/Time Associated Diagnosis Comments COMPREHENSIVE METABOLIC PANEL Routine 11/12/2024 3:41 PM EDT Erosive (osteo)arthritis 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, 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, 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 C-REACTIVE PROTEIN Routine 11/12/2024 3: 41 PM EDT Erosive (osteo)arthritis 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, 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, 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 SEDIMENTATION RATE (ESR) Routine 11/12/2024 3:41 PM EDT Erosive (osteo)arthritis 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, 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, 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 CBC AND DIFFERENTIAL Routine 11/12/2024 3:41 PM EDT Erosive (osteo)arthritis 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, mcfp, current use HEPATITIS C ANTIBODY, QUALITATIVE Routine 03/28/2018 12:14 PM EST Bilateral hand pain Pain of right heel Chronic fatigue from Last 3 Months or Most Recently Relevant to Health Maintenance Results * Comprehensive metabolic panel (11/12/2024 3:41 PM EDT) SODIUM 140 133 - 146 mmol/L [facility] POTASSIUM 4.2 3.3 - 5.1 mmol/L [facility] CHLORIDE 102 96 - 108 mmol/L [facility] CO2 26 21 - 35 mmol/L [facility] BUN 16 6 - 19 mg/dL [facility] CREATININE 0.70 0.5 - 1.5 mg/dL [facility] GLUCOSE 87 70 - 99 mg/dL [facility] ALBUMIN 4.6 3.9 - 4.8 g/dL [facility] TOTAL PROTEIN 7.4 6.5 - 8.0 g/dL [facility] CALCIUM 10.0 8.4 - 10.3 mg/dL [facility] ALKALINE PHOSPHATASE 72 39 - 117 U/L [facility] TOTAL BILIRUBIN 0.3 0.0 - 1.2 mg/dL [facility] AST 23 0 - 37 U/L [facility] ALT 14 0 - 40 U/L [facility] GLOBULIN 2.8 1 - 4.8 g/dL [facility] EGFR 98 >59 mL/min/1.7 3m2 [facility] Comment:Estimated glomerular filtration rate calculated using the CKD-EPI refit equation. ANION GAP 16 10 - 20 mmol/L [facility] Blood 11/12/2024 3:41 PM EDT 11/12/2024 3:43 PM EDT Carol Lu MD LAB BLOOD ORDERABLES Fin al Result Performing Organization Address City/[facility]/ZIP Co de Phone Number [address] [address] * Sedimentation rate (ESR) (11/12/2024 3:41 PM EDT) ESR 4 0 - 30 mm/h [facility] Blood 11/12/2024 3:41 PM EDT 11/12/2024 3:43 PM EDT Carol Lu MD LAB BLOOD ORDERABLES Fin al Result Performing Organization Address [facility] Co de Phone Number [address] [address] * CBC and differential (11/12/2024 3:41 PM EDT) WBC 6.27 4.00 - 11.00 K/uL [facility] RBC 4.41 4.00 - 5.20 M/uL [facility] HGB 13.0 12.0 - 16.0 g/dL [facility] HCT 39.5 36.0 - 46.0 % [facility] PLT 248 150 - 450 K/uL [facility] MCV 89.6 80.0 - 100.0 fL [facility] MCH 29.5 27.0 - 31.0 pg [facility] MCHC 32.9 32.0 - 36.0 g/dL [facility] RDW 12.4 11.5 - 14.5 % [facility] MPV 9.8 8.4 - 12.0 fL [facility] NRBC 0.00 0.00 /100 WBCs [facility] ABSOLUTE NRBC 0.00 0.00 K/uL [facility] DIFF METHOD Auto [facility] NEUTS 63.1 48.0 - 76.0 % [facility] LYMPHS 25.5 18.0 - 41.0 % [facility] MONOS 8.9 4.0 - 11.0 % [facility] EOS 1.6 0.0 - 5.0 % [facility] BASOS 0.6 0.0 - 1.5 % [facility] Granulocytes, immature (%) 0.3 0.0 - 0.9 % [facility] ABSOLUTE NEUTS 3.95 1.92 - 7.60 K/uL [facility] ABSOLUTE LYMPHS 1.60 0.72 - 4.10 K/uL [facility] ABSOLUTE MONOS 0.56 0.16 - 1.10 K/uL [facility] ABSOLUTE EOS 0.10 0.00 - 0.50 K/uL [facility] ABSOLUTE BASOS 0.04 0.00 - 0.15 K/uL [facility] Granulocytes, immature 0.02 0.00 - 0.09 K/uL [facility] Blood 11/12/2024 3:41 PM EDT 11/12/2024 3:43 PM EDT us Carol Lu MD LAB BLOOD ORDERABLES Fin al Result [address] [address] * C-Reactive Protein (11/12/2024 3:41 PM EDT) C REACTIVE PROTEIN <3.0 0.0 - 4.0 mg/L [facility] Blood 11/12/2024 3:41 PM EDT 11/12/2024 3:43 PM EDT us Carol Lu MD LAB BLOOD ORDERABLES Fin al Result [address] [address] * Hepatitis C antibody, qualitative (03/28/2018 12:14 PM EST) HCV Negative Negative [facility] Comment: This is a screening test and should be confirmed with molecular testing Blood 03/28/2018 12:1 4 PM EST 03/28/2018 12:32 PM EST us Carol Lu MD LAB BLOOD ORDERABLES Fin al Result [address] [address] from Last 3 Months or Most Recently Relevant to Health Maintenance Insurance O HMO HMO O HMO Care Teams [employer] Relationship Specialty Start Date End Date So Ellison MD [facility] [place] [address] PCP - General Internal Medicine 09/02/20 Additional Source Comments The information contained in this document represents components of the legal health record. It is not the complete legal health record.[facility]
--- OUTSIDE RECORDS SUMMARY | 2025-01-12 18:57 | XMS_ITS | Clinical Summary ---
Author Organization [address] Address [address] [place] [phone] Phone Care Team Providers Care O And M Supervisor Name Role Phone So Ellison MD Primary Care Provider [phone] Surgical History Surgery Date Site/Laterality Comments APPENDECTOMY PROCEDURE: [place] APPENDECTOMY FLEXIBLE SIGMOIDOSCOPY 10/01/07 PROCEDURE: WI SIGMOIDOSCOPY FLX DX W/COLLJ SPEC BR/WA IF PFRMD; COMMENT: normal BOWEL RESECTION 06/27 PROCEDURE: HISTORICAL BOWEL RESECTION; COMMENT: blockage, some intestine rmoved OTHER SURGICAL HISTORY 09/16/13 PROCEDURE: COLONOSCOPY, REMOVE LESION; COMMENT: [facility], tubular adenoma and hyperplastic polyp ABDOMINAL SURGERY 09/14/15 PROCEDURE: WI UNLISTED PROCEDURE ABDOMEN PERITONEUM & OMENTUM BREAST [...] CMS/HCC V28) DX:SBO (small bowel obstruct ion) ([facility]); COMMENT: partial Lyme disease DX:Lyme disease [...] Health Maintenance Due Date Last Done Comments Colorectal Cancer Screening: Colonoscopy 1965 Hepatitis B Vaccines (2 of 3 - 19+ 3-dose series) 09/30/2010 09/02/2010 Cervical Cancer Screening: Pap Smear 06/12/2021 06/12/2018 HIV Screening 02/25/2022 Social Influencers of Health Screening 02/25/2022 Zoster Vaccines (2 of 2) 07/03/2023 05/08/2023 Depression Screening 03/19/2024 COVID-19 Vaccine (2 - 2024- season) 2024 04/06/2020 Influenza Vaccine (#1) 2024 Breast Cancer Screening 08/01/2026 08/02/19, 07/23/2023, 07/23/2023, Additional history exists DTaP,Tdap,and Td Vaccines (3 - Td or Tdap) 05/04/2033 05/04/2023, 10/23/2011 RSV Immunization Adult Patients (1 - 1-dose 75+ series) 06/04/2038 Hepatitis C Screening Completed 03/28/2018 Pneumococcal Vaccine: 50+ Years Completed 05/04/2023 HIB Vaccines Aged Out No [...] Region Laterality Modality Breast Bilateral Mammography 08/01/2024 3:5 9 PM EDT Impressions 08/01/2024 4:03 PM EDT No mammographic evidence of malignancy. BREAST DENSITY: B - There are scattered areas of fibroglandular density. BI-RADS CATEGORY: 1 - NEGATIVE RECOMMENDATION: Screening bilateral mammogram is recommended in 1 year. MAMMO LOCATION: [facility], [address] [place] [address], [facility], . -------- FINAL REPORT -------- Dictated By: Heather Boone Dictated Date: 08/01/2024 15:59 ET Assigned Physician: Heather Boone Reviewed and Electronically Signed By: Heather Boone Signed Date: 08/01/2024 16:03 ET Workstation ID: [id number] Transcribed By: Self Edit Transcribed Date: 08/01/2024 15:59 ET Narrative 08/01/2024 4:03 PM EDT EXAM: Screening Mammogram CLINICAL: 59 years old, Female, routine annual exam. History of a benign left stereotactic core biopsy [...] is recommended in 1 year. MAMMO LOCATION: [facility], [address] [place] [address], [id number], . -------- FINAL REPORT -------- Dictated By: Heather Boone Dictated Date: 08/01/2024 15:59 ET Assigned Physician: Heather Boone Reviewed and Electronically Signed By: Heather Boone Signed Date: 08/01/2024 16:03 ET Workstation ID: [id number] Transcribed By: Self Edit Transcribed Date: 08/01/2024 15:59 ET us Self Referral sc IMG BI PROCEDURES Final Resu lt * Pap smear (06/12/2018) 06/12/2018 Narrative HISTORICAL TESTING LAB RESULTING AGENCY - 06/14/2018 4:28 PM EDT [id number] THINPREP PAP, IMAGED: NEGATIVE FOR SQUAMOUS INTRAEPITHELIAL LESION AND MALIGNANCY . ATROPHY. KHANH MALLOY , CT(ASCP) (CASE ELECTRONICALLY SIGNED 06 14 2018) RESULT OF APTIMA HIGH RISK HPV ASSAY: HIGH RISK HPV: NEGATIVE (SEROTYPES 16,18,31,33,35,39,45,51,52,56,58,59,66,68) COMPLETED ON 2018-06-14 ADEQUACY: SATISFACTORY ENDOCERVICAL/TRANSFORMATION ZONE COMPONENT PRESENT. SOURCE: THINPREP PAP HPV ANY DX: REFLEX 16 AND 18, CERVICAL, IMAGED CLINICAL INFORMATION: HPV ANY DIAGNOSIS. Z12.4 us Sharlene De La Rosa MD LAB CYTOLOGY ORDERABLES Fin al Result HISTORICAL TESTING LAB RESULTING AGENCY from Last 3 Months or Most Recently Relevant to Health Maintenance Insurance Care Teams O And M Supervisor Relationship Specialty Start Date End Date So Ellison MD PCP - General Internal Medicine 08/02/21
== END 2025-01-12 16:26 | disposition home or self-care (01) ==
LOC: HO.HGI 15:57
PROVIDERS: PCP Internal Medicine; Visit Provider Nurse Practitioner Family
DX: K52.9 Noninfective gastroenteritis and colitis, unspecified (principal); R14.0 Abdominal distension (gaseous)
CPT/HCPCS: 99214; G2211